=== PATIENT | female | born 1960 | race Caucasian/White ===

== ENCOUNTER 2016-11-01 19:45 | Inpatient (IN) | payer MEDICAID ==
[2016-11-01 19:46] VITALS: BMI 28.6
--- NOTE | 2016-11-01 20:51 | C.PDOC ---
History Of Present Illness 56 y/o female pmhx diabetes, ESRD, presents to the ED with complains of right facial pain x1 week. Pt also reports development of decreased vision in right eye 3 days ago which has been constant. Pt is scheduled to start dialysis in a couple months. Does not normally wear visual correction. Pt denies weakness, numbness, slurred speech, vomiting, chest pain or any other complaints. Time Seen by Provider: 11/01/16 20:28 Chief Complaint (Nursing): Eye Problem History Per: Patient History/Exam Limitations: no limitations Onset/Duration Of Symptoms: Days, Persistent Current Symptoms Are (Timing): Still Present Injury To Eye?: No Severity: Moderate Wears Contact Lens?: No Associated Symptoms: Decreased Vision Recent travel outside of the [place]: No Past Medical History Reviewed: Historical Data, Nursing Documentation, Vital Signs Vital Signs: Last Vital Signs Temp 97.5 F L 11/01/16 19:59 Pulse 69 11/02/16 00:06 Resp 20 11/02/16 00:06 BP 132/69 11/02/16 00:06 Pulse Ox 99 11/02/16 00:06 - Medical History PMH: Anemia, HTN, Hypercholesterolemia, Kidney Stones (NO SURGERY), Chronic Kidney Disease (NO DIALYSIS YET) Family History: States: Unknown Family Hx - Social History Hx Alcohol Use: No Hx Substance Use: No - Immunization History Hx Tetanus Toxoid Vaccination: No Hx Influenza Vaccination: No Hx Pneumococcal Vaccination: No Review Of Systems Except As Marked, All Systems Reviewed And Found Negative. Constitutional: Negative for: Fever Eyes: Positive for: Vision Change (decreased vision right eye) Cardiovascular: Negative for: Chest Pain Musculoskeletal: Positive for: Other (right facial pain) Neurological: Negative for: Weakness, Numbness, Change in Speech Physical Exam - Physical Exam Appears: Non-toxic, No Acute Distress Skin: Warm, Dry, No Rash Head: No Atraumatic, No Normacephalic Eye(s): bilateral: PERRL, EOMI, right: Other (central, medial visual field deficit right eye, peripheral vision intact. fund appears abnormal on the right ? ret detach) Nose: Normal Neck: Normal ROM, Supple Chest: Symmetrical Cardiovascular: Rhythm Regular, No Murmur Respiratory: Normal Breath Sounds, No Rales, No Rhonchi, No Wheezing Gastrointestinal/Abdominal: Soft Extremity: Normal ROM, No Pedal Edema Extremity: Bilateral: Atraumatic Neurological/Psych: Oriented x3, Normal Speech, Normal Cognition, Normal Cranial Nerves, Cerebellar Signs, Normal Motor, Normal Sensation ED Course And Treatment - Laboratory Results Result Diagrams: 11/01/16 21:41 11/01/16 21:41 ECG: Interpreted By Me, Viewed By Me ECG Rhythm: Sinus Rhythm Interpretation Of ECG: Normal axis, normal intervals, no ischemia Rate From EC (BPM) O2 Sat by Pulse Oximetry: 100 (on room air) Pulse Ox Interpretation: Normal Medical Decision Making Medical Decision Making: retinal detach vs ophth tract lesion vs other 1230am disc w dr swain who will admit 0100am awaiting call back from oph at conclusion of my shift CT Head w/o contrast: Name: SHELIA SWAIN Age: 56Years F Date: 11/01/2016 SSN: [id number] : 1960 Study: CT HEAD WO Requesting Physician: Francisco Rowland Images: 142 Addl Studies: Provided Clinical History: visual disturbance EXAM: CT Head Without Intravenous Contrast. CLINICAL HISTORY: 56 years old, female; Signs and symptoms; Visual disturbance TECHNIQUE: Axial computed tomography images of the head/brain without intravenous contrast. This CT exam was performed using one or more of the following dose reduction techniques: automated exposure control, adjustment of the mA and/or kV according to patient size, and/or use of iterative reconstruction technique. EXAM DATE/TIME: 11/01/2016 8:52 PM COMPARISON: There are no prior studies for comparison. FINDINGS: Brain: There is prominence of sulci gyri and ventricles. There is no midline shift. There is patchy decreased attenuation in periventricular white matter. There are no focal masses. There are no focal hemorrhages. Vicente-white differentiation is visualized. Ventricles: See above. Bones: Cranial vault is intact. Soft tissues: unremarkable Sinuses: There is no acute sinusitis. Ears and mastoids: Middle ears and mastoid IMPRESSION: No acute intracranial abnormality Disposition - Disposition Disposition Time: 00:30 Condition: STABLE - Clinical Impression Clinical Impression: Visual field defect - Scribe Statement The provider has reviewed the documentation as recorded by the Adam George Provider Attestation: All medical record entries made by the Scribe were at my direction and personally dictated by me. I have reviewed the chart and agree that the record accurately reflects my personal performance of the history, physical exam, medical decision making, and the department course for this patient. I have also personally directed, reviewed, and agree with the discharge instructions and disposition.
[2016-11-01] MEDS ORDERED: Cyclopentolate 1% Opth (2 ml) OD STA (21:08)
[2016-11-01 21:49] LABS: BASO # 0.1 K/uL (0.0-0.2); BASO % 0.7 % (0.0-2.0); EOS # 0.2 K/uL (0.0-0.7); EOS % 2.3 % (0.0-4.0); HEMATOCRIT 27.1 % (34.0-47.0); LYMPH # 1.8 K/uL (1.0-4.3); LYMPH % 21.2 % (20.0-40.0); MEAN CORPUSCULAR HGB CONC 32.9 g/dL (33.0-37.0); MEAN PLATELET VOLUME 8.3 fL (7.2-11.7); MONO # 0.7 K/uL (0.0-0.8); MONO % 8.2 % (0.0-10.0); RED CELL DISTRIBUTION WIDTH 14.2 % (11.5-14.5); WHITE BLOOD COUNT 8.4 K/uL (4.8-10.8)
[2016-11-01 21:54] LABS: POTASSIUM 5.2 mmol/L (3.6-5.2)
[2016-11-01 21:56] LABS: BILIRUBIN,TOTAL 0.4 mg/dL (0.2-1.3); TOTAL PROTEIN 7.7 g/dL (6.3-8.3)
--- NOTE | 2016-11-01 22:36 | CT ---
EXAM: CT Head Without Intravenous Contrast. CLINICAL HISTORY: 56 years old, female; Signs and symptoms; Visual disturbance TECHNIQUE: Axial computed tomography images of the head/brain without intravenous contrast. This CT exam was performed using one or more of the following dose reduction techniques: automated exposure control, adjustment of the mA and/or kV according to patient size, and/or use of iterative reconstruction technique. EXAM DATE/TIME: 11/01/2016 8:52 PM COMPARISON: There are no prior studies for comparison. FINDINGS: Brain: There is prominence of sulci gyri and ventricles. There is no midline shift. There is patchy decreased attenuation in periventricular white matter. There are no focal masses. There are no focal hemorrhages. Vicente-white differentiation is visualized. Ventricles: See above. Bones: Cranial vault is intact. Soft tissues: unremarkable Sinuses: There is no acute sinusitis. Ears and mastoids: Middle ears and mastoids are unremarkable. Orbits: Orbital contents are unremarkable. IMPRESSION: No acute intracranial abnormality
[2016-11-02] MEDS ORDERED: Sod Polystyrene Sulf 15 gm/60 ml Oral Susp PO SCH ×2 (09:00→10:00)
[2016-11-02] MEDS ORDERED: FERROUS SULFATE PO SCH (10:00)
[2016-11-02] MEDS ORDERED: [UNRECOGNIZED DRUG - REMARK] PO SCH (10:00)
[2016-11-02] MEDS: Multivitamin Vitamin B Complex (Nephro-Vite) Tab PO SCH (10:42)
[2016-11-02] MEDS: (Lantus) Insulin Glargine, Recombinant SC SCH ×2 (10:49→22:23)
--- NOTE | 2016-11-02 12:10 | CARD ---
APPROVED REPORT EKG Measurement Heart [id number] MD [id number] <Conclusion> Normal sinus rhythm Normal ECG
[2016-11-02] MEDS: (Novolog) Insulin Aspart, Recombinant 100 u/ml 10 ml vial SC SCH ×3 (12:59→22:32)
--- NOTE | 2016-11-02 18:06 | CP.PCM.PN ---
Subjective - Date & Time of Evaluation Date of Evaluation: 11/02/16 Time of Evaluation: 11:40 - Subjective Subjective: clinically same Objective - Vital Signs/Intake and Output Vital Signs (last 24 hours): Temp Pulse Resp BP Pulse Ox 98.9 F 68 20 113/62 96 11/02/16 15:36 11/02/16 15:36 11/02/16 15:36 11/02/16 15:36 11/02/16 15:36 - Medications Medications: Current Medications Amlodipine Besylate (Norvasc) 10 mg PO DAILY [facility] Last Admin: 11/02/16 10:42 Dose: Not Given Aspirin (Ecotrin) 81 mg PO DAILY [facility] Last Admin: 11/02/16 10:41 Dose: Not Given Calcitriol (Rocaltrol) 0.25 mcg PO DAILY [facility] Last Admin: 11/02/16 10:42 Dose: Not Given Calcium Acetate (Phoslo) 1,334 mg PO TIDCC [facility] Last Admin: 11/02/16 17:45 Dose: 1,334 mg Carvedilol (Coreg) 25 mg PO Q12 [facility] Last Admin: 11/02/16 10:41 Dose: Not Given Docusate Sodium (Colace) 100 mg PO TID [facility] Last Admin: 11/02/16 17:45 Dose: 100 mg Ferrous Sulfate (Feosol) 325 mg PO TID [facility] Last Admin: 11/02/16 17:45 Dose: 325 mg Furosemide (Lasix) 40 mg PO DAILY [facility] Last Admin: 11/02/16 10:42 Dose: Not Given Hydralazine HCl (Apresoline) 10 mg PO BID [facility] Last Admin: 11/02/16 17:45 Dose: 10 mg Insulin Aspart (Novolog) 0 unit SC ACHS [facility] PRN Reason: Protocol Last Admin: 11/02/16 17:46 Dose: 3 unit Insulin Glargine (Lantus) 25 unit SC Q12 [facility] Last Admin: 11/02/16 10:49 Dose: 25 units Isosorbide Mononitrate (Imdur) 60 mg PO DAILY [facility] Last Admin: 11/02/16 10:42 Dose: Not Given Rosuvastatin Calcium (Crestor) 10 mg PO [facility] Sodium Bicarbonate (Sodium Bicarbonate Tab) 650 mg PO TID [facility] Last Admin: 11/02/16 17:45 Dose: 650 mg Sodium Polystyrene Sulfonate (Kayexalate Oral Susp) 15 gm PO [facility] [place] B Complex/Vit C/Folic Acid (Nephro-Mary) 1 tab PO DAILY [facility] Last Admin: 11/02/16 10:42 Dose: Not Given - Constitutional Appears: Well - Head Exam Head Exam: ATRAUMATIC, NORMAL INSPECTION, NORMOCEPHALIC - Eye Exam Eye Exam: EOMI, Normal appearance, PERRL Pupil Exam: NORMAL ACCOMODATION, PERRL - ENT Exam ENT Exam: Mucous Membranes Moist, Normal Exam - Neck Exam Neck Exam: Full ROM, Normal Inspection. absent: Lymphadenopathy - Respiratory Exam Respiratory Exam: Decreased Breath Sounds - Cardiovascular Exam Cardiovascular Exam: REGULAR RHYTHM, +S1, +S2 - GI/Abdominal Exam GI & Abdominal Exam: Soft, Diminished Bowel Sounds - Rectal Exam Rectal Exam: Deferred
--- NOTE | 2016-11-02 18:08 | CP.PCM.CON ---
Past Patient History - Past Medical History & Family History Past Medical History?: Yes - Past Social History Smoking Status: Never Smoked - CARDIAC Hx Hypercholesterolemia: Yes Hx Hypertension: Yes - PULMONARY Hx Respiratory Disorders: No - HEENT Hx HEENT Problems: Yes (DIABETIC RETINOPATHY) - RENAL Hx Chronic Kidney Disease: Yes (NO DIALYSIS YET) Hx Kidney Stones: Yes (NO SURGERY) - ENDOCRINE/METABOLIC Hx Endocrine Disorders: Yes Hx Diabetes Mellitus Type 1: Yes - HEMATOLOGICAL/ONCOLOGICAL Hx Anemia: Yes - MUSCULOSKELETAL/RHEUMATOLOGICAL Hx Back Pain: Yes (CERVICAL/LUMBAR) Hx Falls: No - GASTROINTESTINAL Hx Gastrointestinal Disorders: No - GENITOURINARY/GYNECOLOGICAL Hx Genitourinary Disorders: Yes (RENAL FAILURE) - PSYCHIATRIC Hx Substance Use: No - SURGICAL HISTORY Hx Surgeries: Yes (left arm fistula) Hx Tubal Ligation: Yes - ANESTHESIA Hx Anesthesia: Yes Hx Anesthesia Reactions: Yes (WOKE UP DURING PROCEDURE) Hx Malignant Hyperthermia: No Meds Allergies/Adverse Reactions: Allergies Allergy/AdvReac Type Severity Reaction Status Date / Time No Known Allergies Allergy Verified 11/01/16 19:59 - Medications Medications: Current Medications Amlodipine Besylate (Norvasc) 10 mg PO DAILY [facility] Last Admin: 11/02/16 10:42 Dose: Not Given Aspirin (Ecotrin) 81 mg PO DAILY [facility] Last Admin: 11/02/16 10:41 Dose: Not Given Calcitriol (Rocaltrol) 0.25 mcg PO DAILY [facility] Last Admin: 11/02/16 10:42 Dose: Not Given Calcium Acetate (Phoslo) 1,334 mg PO TIDCC [facility] Last Admin: 11/02/16 17:45 Dose: 1,334 mg Carvedilol (Coreg) 25 mg PO Q12 [facility] Last Admin: 11/02/16 10:41 Dose: Not Given Docusate Sodium (Colace) 100 mg PO TID [facility] Last Admin: 11/02/16 17:45 Dose: 100 mg Ferrous Sulfate (Feosol) 325 mg PO TID [facility] Last Admin: 11/02/16 17:45 Dose: 325 mg Furosemide (Lasix) 40 mg PO DAILY [facility] Last Admin: 11/02/16 10:42 Dose: Not Given Hydralazine HCl (Apresoline) 10 mg PO BID [facility] Last Admin: 11/02/16 17:45 Dose: 10 mg Insulin Aspart (Novolog) 0 unit SC [facility] PRN Reason: Protocol Last Admin: 11/02/16 17:46 Dose: 3 unit Insulin Glargine (Lantus) 25 unit SC Q12 [facility] Last Admin: 11/02/16 10:49 Dose: 25 units Isosorbide Mononitrate (Imdur) 60 mg PO DAILY [facility] Last Admin: 11/02/16 10:42 Dose: Not Given Rosuvastatin Calcium (Crestor) 10 mg PO [facility] Sodium Bicarbonate (Sodium Bicarbonate Tab) 650 mg PO TID [facility] Last Admin: 11/02/16 17:45 Dose: 650 mg Sodium Polystyrene Sulfonate (Kayexalate Oral Susp) 15 gm PO [facility] [place] Vitamin B Complex/Vit C/Folic Acid (Nephro-Mary) 1 tab PO DAILY [facility] Last Admin: 11/02/16 10:42 Dose: Not Given Physical Exam - Constitutional Appears: Well - Head Exam Head Exam: ATRAUMATIC, NORMAL INSPECTION, NORMOCEPHALIC - Eye Exam Eye Exam: EOMI, Normal appearance, PERRL Pupil Exam: NORMAL ACCOMODATION, PERRL - ENT Exam ENT Exam: Mucous Membranes Moist, Normal Exam - Neck Exam Neck exam: Positive for: Normal Inspection - Respiratory Exam Respiratory Exam: Decreased Breath Sounds - Cardiovascular Exam Cardiovascular Exam: REGULAR RHYTHM, +S1, +S2 - GI/Abdominal Exam GI & Abdominal Exam: Diminished Bowel Sounds, Soft - Rectal Exam Rectal Exam: Deferred Results - Vital Signs Recent Vital Signs: Last Vital Signs Temp 98.9 F 11/02/16 15:36 Pulse 68 11/02/16 15:36 Resp 20 11/02/16 15:36 BP 113/62 11/02/16 15:36 Pulse Ox 96 11/02/16 15:36 - Labs Result Diagrams: 11/01/16 21:41 11/01/16 21:41 Labs: Laboratory Results - last 24 hr 11/02/16 11/02/16 11:43 16:41 POC Glucose (mg/dL) 293 H 254 H
--- NOTE | 2016-11-02 21:27 | CP.PCM.HP ---
Past Patient History - Past Medical History & Family History Past Medical History?: Yes - Past Social History Smoking Status: Never Smoked - CARDIAC Hx Hypercholesterolemia: Yes Hx Hypertension: Yes - PULMONARY Hx Respiratory Disorders: No - HEENT Hx HEENT Problems: Yes (DIABETIC RETINOPATHY) - RENAL Hx Chronic Kidney Disease: Yes (NO DIALYSIS YET) Hx Kidney Stones: Yes (NO SURGERY) - ENDOCRINE/METABOLIC Hx Endocrine Disorders: Yes Hx Diabetes Mellitus Type 1: Yes - HEMATOLOGICAL/ONCOLOGICAL Hx Anemia: Yes - MUSCULOSKELETAL/RHEUMATOLOGICAL Hx Back Pain: Yes (CERVICAL/LUMBAR) Hx Falls: No - GASTROINTESTINAL Hx Gastrointestinal Disorders: No - GENITOURINARY/GYNECOLOGICAL Hx Genitourinary Disorders: Yes (RENAL FAILURE) - PSYCHIATRIC Hx Substance Use: No - SURGICAL HISTORY Hx Surgeries: Yes (left arm fistula) Hx Tubal Ligation: Yes - ANESTHESIA Hx Anesthesia: Yes Hx Anesthesia Reactions: Yes (WOKE UP DURING PROCEDURE) Hx Malignant Hyperthermia: No Meds Allergies/Adverse Reactions: Allergies Allergy/AdvReac Type Severity Reaction Status Date / Time No Known Allergies Allergy Verified 11/01/16 19:59 Results - Vital Signs Recent Vital Signs: Last Vital Signs Temp 98.9 F 11/02/16 15:36 Pulse 68 11/02/16 16:00 Resp 20 11/02/16 15:36 BP 113/62 11/02/16 15:36 Pulse Ox 96 11/02/16 15:36 - Labs Result Diagrams: 11/01/16 21:41 11/01/16 21:41 Labs: Laboratory Results - last 24 hr 11/02/16 11/02/16 11/02/16 11:43 16:41 21:05 POC Glucose (mg/dL) 293 H 254 H 219 H
[2016-11-02] MEDS ORDERED: Home Med 1 UNIT (Atorvastatin [Lipitor] 1 TAB) PO SCH (22:00)
[2016-11-02] MEDS: Tramadol 25 mg PO PRN (22:24)
[2016-11-03] MEDS: (Novolog) Insulin Aspart, Recombinant 100 u/ml 10 ml vial SC SCH ×4 (07:33→21:53)
[2016-11-03 08:10] LABS: BASO # 0.1 K/uL (0.0-0.2); BASO % 0.7 % (0.0-2.0); EOS # 0.2 K/uL (0.0-0.7); EOS % 2.6 % (0.0-4.0); HEMATOCRIT 25.1 % (34.0-47.0); LYMPH # 1.8 K/uL (1.0-4.3); LYMPH % 24.4 % (20.0-40.0); MEAN CELL VOLUME 91.9 fL (81.0-99.0); MEAN CORPUSCULAR HEMOGLOBIN 30.5 pg (27.0-31.0); MEAN CORPUSCULAR HGB CONC 33.2 g/dL (33.0-37.0); MEAN PLATELET VOLUME 8.5 fL (7.2-11.7); MONO # 0.7 K/uL (0.0-0.8); MONO % 9.8 % (0.0-10.0); RED CELL DISTRIBUTION WIDTH 14.2 % (11.5-14.5); WHITE BLOOD COUNT 7.4 K/uL (4.8-10.8)
[2016-11-03 08:11] LABS: POTASSIUM 4.5 mmol/L (3.6-5.2)
[2016-11-03] MEDS: (Lantus) Insulin Glargine, Recombinant SC SCH ×2 (09:09→21:47)
[2016-11-03] MEDS: Multivitamin Vitamin B Complex (Nephro-Vite) Tab PO SCH (09:16)
--- NOTE | 2016-11-03 10:13 | CP.PCM.CON ---
History of Present Illness - History of Present Illness History of Present Illness: pt seen and examined, full consult is di ctated #[id number] Past Patient History - Past Medical History & Family History Past Medical History?: Yes - Past Social History Smoking Status: Never Smoked - CARDIAC Hx Hypercholesterolemia: Yes Hx Hypertension: Yes - PULMONARY Hx Respiratory Disorders: No - HEENT Hx HEENT Problems: Yes (DIABETIC RETINOPATHY) - RENAL Hx Chronic Kidney Disease: Yes (NO DIALYSIS YET) Hx Kidney Stones: Yes (NO SURGERY) - ENDOCRINE/METABOLIC Hx Endocrine Disorders: Yes Hx Diabetes Mellitus Type 1: Yes - HEMATOLOGICAL/ONCOLOGICAL Hx Anemia: Yes - MUSCULOSKELETAL/RHEUMATOLOGICAL Hx Back Pain: Yes (CERVICAL/LUMBAR) Hx Falls: No - GASTROINTESTINAL Hx Gastrointestinal Disorders: No - GENITOURINARY/GYNECOLOGICAL Hx Genitourinary Disorders: Yes (RENAL FAILURE) - PSYCHIATRIC Hx Substance Use: No - SURGICAL HISTORY Hx Surgeries: Yes (left arm fistula) Hx Tubal Ligation: Yes - ANESTHESIA Hx Anesthesia: Yes Hx Anesthesia Reactions: Yes (WOKE UP DURING PROCEDURE) Hx Malignant Hyperthermia: No Meds Allergies/Adverse Reactions: Allergies Allergy/AdvReac Type Severity Reaction Status Date / Time No Known Allergies Allergy Verified 11/01/16 19:59 - Medications Medications: Current Medications Amlodipine Besylate (Norvasc) 10 mg PO DAILY [facility] Last Admin: 11/03/16 09:08 Dose: 10 mg Aspirin (Ecotrin) 81 mg PO DAILY [facility] Last Admin: 11/03/16 09:08 Dose: 81 mg Calcitriol (Rocaltrol) 0.25 mcg PO DAILY [facility] Last Admin: 11/03/16 09:09 Dose: 0.25 mcg Calcium Acetate (Phoslo) 1,334 mg PO TIDCC [facility] Last Admin: 11/03/16 08:05 Dose: 1,334 mg Carvedilol (Coreg) 25 mg PO Q12 [facility] Last Admin: 11/03/16 09:10 Dose: 25 mg Docusate Sodium (Colace) 100 mg PO TID [facility] Last Admin: 11/03/16 09:10 Dose: 100 mg Ferrous Sulfate (Feosol) 325 mg PO TID [facility] Last Admin: 11/03/16 09:09 Dose: 325 mg Furosemide (Lasix) 40 mg PO DAILY [facility] Last Admin: 11/02/16 10:42 Dose: Not Given Hydralazine HCl (Apresoline) 10 mg PO BID [facility] Last Admin: 11/03/16 09:09 Dose: 10 mg Insulin Aspart (Novolog) 0 unit SC ACHS [facility] PRN Reason: Protocol Last Admin: 11/03/16 07:33 Dose: Not Given Insulin Glargine (Lantus) 25 unit SC Q12 [facility] Last Admin: 11/03/16 09:09 Dose: 25 units Isosorbide Mononitrate (Imdur) 60 mg PO DAILY [facility] Last Admin: 11/03/16 09:16 Dose: 60 mg Rosuvastatin Calcium (Crestor) 10 mg PO HS [facility] Last Admin: 11/02/16 22:24 Dose: 10 mg Sodium Bicarbonate (Sodium Bicarbonate Tab) 650 mg PO TID [facility] Last Admin: 11/03/16 09:08 Dose: 650 mg Sodium Polystyrene Sulfonate (Kayexalate Oral Susp) 15 gm PO MWF [facility] Tramadol HCl (Ultram) 25 mg PO Q8 PRN PRN Reason: Pain, moderate (4-7) Last Admin: 11/02/16 22:24 Dose: 25 mg Vitamin B Complex/Vit C/Folic Acid (Nephro-Mary) 1 tab PO DAILY [facility] Last Admin: 11/03/16 09:16 Dose: 1 tab Results - Vital Signs Recent Vital Signs: Last Vital Signs Temp 98.2 F 11/03/16 07:00 Pulse 61 11/03/16 07:00 Resp 20 11/03/16 07:00 BP 147/74 11/03/16 09:10 Pulse Ox 97 11/03/16 07:00 - Labs Result Diagrams: 11/03/16 07:57 11/03/16 07:57 Labs: Laboratory Results - last 24 hr 11/02/16 11/02/16 11/02/16 11:43 16:41 21:05 WBC RBC Hgb Hct MCV MCH MCHC RDW Plt Count MPV Neut % (Auto) Lymph % (Auto) [place] % (Auto) Eos % (Auto) Baso % (Auto) Neut # Lymph # [place] # Eos # Baso # Sodium Potassium Chloride Carbon Dioxide Anion Gap BUN Creatinine Est GFR ( Amer) Est GFR (Non-Af Amer) POC Glucose (mg/dL) 293 H 254 H 219 H Random Glucose Calcium 11/03/16 11/03/16 06:35 07:57 WBC 7.4 RBC 2.73 L Hgb 8.3 L Hct 25.1 L MCV 91.9 MCH 30.5 MCHC 33.2 RDW 14.2 Plt Count 218 MPV 8.5 Neut % (Auto) 62.5 Lymph % (Auto) 24.4 [place] % (Auto) 9.8 Eos % (Auto) 2.6 Baso % (Auto) 0.7 Neut # 4.6 Lymph # 1.8 Carroll # 0.7 Eos # 0.2 Baso # 0.1 Sodium 143 Potassium 4.5 Chloride 109 H Carbon Dioxide 20 L Anion Gap 19 BUN 55 H Creatinine 7.5 H* Est GFR ( Amer) 7 Est GFR (Non-Af Amer) 6 POC Glucose (mg/dL) 73 Random Glucose 118 H Calcium 9.0
--- NOTE | 2016-11-03 12:00 | CON ---
DATE: 11/03/2016 LOCATION: The patient is located in room 568, bed A. REQUESTING PHYSICIAN: Dr. Wiliam Wells. REASON FOR RENAL CONSULTATION: CKD 5 with visual field defect on the right eye for 2 days. HISTORY OF PRESENT ILLNESS: The patient is a 56-year-old middle-aged [place]er female with a past medical history significant for longstanding hypertension, diabetes, CHF, proteinuria, anemia, secondary hyperparathyroidism, hyperkalemia , CKD 5 with worsening renal function for the last 6 months, status post left upper extremity AV fistula placement about a month ago, who was admitted with a chief complaint of pain on the right side of the neck and also unable to see on the medial aspect of the right eye for the last 2 days. Denies any fever, cough. Denies any chest pain, palpitation. Denies any nausea, vomiting, diarrhea. No edema of the legs. No abdominal pain. PAST MEDICAL HISTORY: Significant for longstanding hypertension, diabetes, CHF , anemia, secondary hyperparathyroidism, metabolic acidosis, hyperkalemia, and anemia. PAST SURGICAL HISTORY: Status post left upper extremity AV fistula. ALLERGIES: No known drug allergies. SOCIAL HISTORY: No smoking. No alcohol. No drug abuse. FAMILY HISTORY: Not significant. She has a very supportive family. CURRENT MEDICATIONS: Include as follows: Hydralazine 100 mg p.o. b.i.d., Colace 100 mg b.i.d., Coreg 25 mg p.o. q. 12 hours, Crestor 10 mg at bedtime, aspirin 81 mg daily, Feosol 325 mg p.o. t.i.d., Imdur 60 mg daily, and Kayexalate 15 grams 3 times a week, Monday, Monday, Monday, and Lantus 25 units q. 12 hours, Lasix 40 mg p.o. daily, Nephro-Mary 1 tablet daily, amlodipine 10 mg daily, NovoLog for sliding scale, PhosLo 667 mg 2 tablets t.i.d., Rocaltrol 0.25 mcg 2 daily, sodium bicarbonate 650 t.i.d. and tramadol 25 mg p.o. q. 8 hours. REVIEW OF SYSTEMS: Significant for pain on the right side of the face and also unable to see on the medial aspect of the right eye. Good vision on the left eye, and able to see on the lateral aspect of the right eye. All other review of systems are reviewed and are negative. PHYSICAL EXAMINATION: VITAL SIGNS: Blood pressure 147/74, pulse 61, respiration 20, temperature 98.2 , saturation 97%, height 4 feet 11 inches and weight is 143 pounds. GENERAL: The patient is a 56-year-old female, well built, well nourished, not in acute distress. HEENT: Pupils normal reactive to light and accommodation. Conjunctivae pink. Sclerae anicteric. Tongue is moist. NECK: Trachea midline. EYES: The patient is not able to see on the medial aspect of the right eye. Left eye vision is nonsmall and lateral aspect of the eye able to see, but not able to see on the medial aspect of the right eye. LUNGS: Symmetric on both sides. Bilateral breath sounds present. Clear on auscultation. CARDIOVASCULAR: [place] at the 5 IC space of midclavicular line. S1 and S2 audible. No murmur or gallop. ABDOMEN: Normal in appearance, soft, NT, BS+. No guarding, no rigidity. No hepatosplenomegaly. NEUROLOGIC: The patient is alert, awake, oriented x 3, nonfocal on examination. Cranial nerves II-XII grossly intact except vision on the medial aspect of the right eye. EXTREMITIES: No cyanosis, no clubbing, no edema. LABORATORY DATA: Include as follows: As of 11/01/2016, WBC 8.4, hemoglobin 8.9 , hematocrit is 27.1, platelets 250, sodium 141, potassium 5.2, chloride 104, CO2 18, BUN 58, creatinine 7, glucose 185, calcium 9, total bilirubin 0.4, AST 16, ALT 20, alkaline phosphatase is 51. Total protein 7.7, albumin 3.9. As of 11/03/2016, WBC 7.4, hemoglobin 8.3, hematocrit is 25.1, platelets 218. Sodium 143, potassium 4.5, chloride 109, CO2 20, BUN 55, creatinine 7.5, glucose 118, calcium is 9. CT of the head as of 11/01/2016. Impression: No acute intracranial abnormality. Patient is scheduled for MRI of the brain and pending at this time. SUMMARY: In summary: The patient is a 56-year-old female with history of hypertension, diabetes, hyperlipidemia, congestive heart failure, chronic kidney disease stage V, anemia secondary hyperparathyroidism, status post left upper extremity AV fistula placement, hyperkalemia, was admitted with pain on the right side of the face and unable to see in the medial aspect of the right side for 2 days. ASSESSMENT AND PLAN: 1. Chronic kidney disease stage V, secondary to diabetic nephropathy. 2. Hypertension. 3. Anemia secondary to chronic kidney disease, stage V. 4. Unable to the on the right side of the right eye. Rule out diabetic retinopathy, rule out retinal bleed, and also rule out transient ischemic attack , rule out cerebellar infarct. Consider ophthalmology evaluation and followup MRI of the brain. No need for emergent hemodialysis at this time. PLAN: Continue all her current medications. We will add Epogen 10,000 units 3 times a week. Thank you for allowing me to participate in your patient's care. Consider ophthalmology evaluation as an inpatient. Chrissie Moore MD cc: [id number] TT: 11/03/2016 11:59:21 Confirmation # [id number] Dictation # [id number] [id number]
--- NOTE | 2016-11-03 12:49 | CP.PCM.PN ---
Subjective - Date & Time of Evaluation Date of Evaluation: 11/03/16 Time of Evaluation: 11:40 - Subjective Subjective: clinically same Objective - Vital Signs/Intake and Output Vital Signs (last 24 hours): Temp Pulse Resp BP Pulse Ox 98.2 F 61 20 145/77 97 11/03/16 07:00 11/03/16 10:34 11/03/16 07:00 11/03/16 11:59 11/03/16 07:00 - Medications Medications: Current Medications Amlodipine Besylate (Norvasc) 10 mg PO DAILY [facility] Last Admin: 11/03/16 09:08 Dose: 10 mg Aspirin (Ecotrin) 81 mg PO DAILY [facility] Last Admin: 11/03/16 09:08 Dose: 81 mg Calcitriol (Rocaltrol) 0.25 mcg PO DAILY [facility] Last Admin: 11/03/16 09:09 Dose: 0.25 mcg Calcium Acetate (Phoslo) 1,334 mg PO TIDCC [facility] Last Admin: 11/03/16 11:17 Dose: 1,334 mg Carvedilol (Coreg) 25 mg PO Q12 [facility] Last Admin: 11/03/16 09:10 Dose: 25 mg Docusate Sodium (Colace) 100 mg PO TID [facility] Last Admin: 11/03/16 09:10 Dose: 100 mg Ferrous Sulfate (Feosol) 325 mg PO TID [facility] Last Admin: 11/03/16 09:09 Dose: 325 mg Furosemide (Lasix) 40 mg PO DAILY [facility] Last Admin: 11/03/16 11:59 Dose: 40 mg Hydralazine HCl (Apresoline) 10 mg PO BID [facility] Last Admin: 11/03/16 09:09 Dose: 10 mg Insulin Aspart (Novolog) 0 unit SC ACHS [facility] PRN Reason: Protocol Last Admin: 11/03/16 11:59 Dose: 3 unit Insulin Glargine (Lantus) 25 unit SC Q12 [facility] Last Admin: 11/03/16 09:09 Dose: 25 units Isosorbide Mononitrate (Imdur) 60 mg PO DAILY [facility] Last Admin: 11/03/16 09:16 Dose: 60 mg Rosuvastatin Calcium (Crestor) 10 mg PO HS [facility] Last Admin: 11/02/16 22:24 Dose: 10 mg Sodium Bicarbonate (Sodium Bicarbonate Tab) 650 mg PO TID [facility] Last Admin: 11/03/16 09:08 Dose: 650 mg Sodium Polystyrene Sulfonate (Kayexalate Oral Susp) 15 gm PO MWF [facility] Tramadol HCl (Ultram) 25 mg PO Q8 PRN PRN Reason: Pain, moderate (4-7) Last Admin: 11/02/16 22:24 Dose: 25 mg Vitamin B Complex/Vit C/Folic Acid (Nephro-Mary) 1 tab PO DAILY [facility] Last Admin: 11/03/16 09:16 Dose: 1 tab - Constitutional Appears: Well - Head Exam Head Exam: ATRAUMATIC, NORMAL INSPECTION, NORMOCEPHALIC - Eye Exam Eye Exam: EOMI, Normal appearance, PERRL Pupil Exam: NORMAL ACCOMODATION, PERRL - ENT Exam ENT Exam: Mucous Membranes Moist, Normal Exam - Neck Exam Neck Exam: Full ROM, Normal Inspection. absent: Lymphadenopathy - Respiratory Exam Respiratory Exam: Decreased Breath Sounds - Cardiovascular Exam Cardiovascular Exam: REGULAR RHYTHM, +S1, +S2 - GI/Abdominal Exam GI & Abdominal Exam: Soft, Diminished Bowel Sounds - Rectal Exam Rectal Exam: Deferred Assessment and Plan (1) Visual field defect Status: Acute (2) HTN (hypertension) Status: Acute (3) Chronic renal disease Status: Acute (4) Facial pain Status: Acute
--- NOTE | 2016-11-03 14:42 | MRI ---
PROCEDURE: MRI BRAIN WITHOUT CONTRAST HISTORY: visual disturbance COMPARISON: Comparison made with CT scan brain 11/01/2016. TECHNIQUE: Multiplanar, multisequence MR images of the brain were obtained without intravenous contrast enhancement. FINDINGS: HEMORRHAGE: No acute parenchymal, subarachnoid nor extra-axial hemorrhage. No evidence of hemosiderin deposition identified on gradient echo weighted sequence. DWI: No evidence of an acute or early subacute infarction. BRAIN PARENCHYMA: There are a few tiny non nonspecific focal areas of increased T2 signal seen scattered about the subcortical white matter both frontal lobes nonspecific. Findings could represent sequela of small vessel disease however differential diagnosis would include migraine headaches, sequela of old trauma, or post infectious/ inflammatory changes. Atypical presentation of a demyelinating disease process would be less likely in the absence of a pertinent clinical history however not completely excluded. Additionally, there also appears to be some very minimal increased T2 signal changes in the perifrontal horn white matter bilaterally which may also represent sequela of small vessel disease. VENTRICLES: Mild generalized volume loss. CRANIUM: No calvarial abnormality seen. . ORBITS: Orbits and contents grossly unremarkable. PARANASAL SINUSES/MASTOIDS: Clear VASCULAR SYSTEM: Visualized major vascular flow voids at skull base are patent. OTHER FINDINGS: None. IMPRESSION: No acute intracranial hemorrhage or infarct. There are a few tiny focal areas of increased T2 signal scattered about the subcortical white matter with minimal increased T2 signal changes in theperifrontal horn white matter bilaterally which may also represent sequela of small vessel disease. Mild generalized volume loss.
[2016-11-04] MEDS: (Novolog) Insulin Aspart, Recombinant 100 u/ml 10 ml vial SC SCH ×4 (07:32→21:30)
--- NOTE | 2016-11-04 09:28 | CP.PCM.PN ---
Subjective - Date & Time of Evaluation Date of Evaluation: 11/04/16 Time of Evaluation: 10:00 - Subjective Subjective: clinically same Objective - Vital Signs/Intake and Output Vital Signs (last 24 hours): Temp Pulse Resp BP Pulse Ox 98.2 F 69 20 149/68 96 11/04/16 00:35 11/04/16 00:35 11/04/16 00:35 11/04/16 00:35 11/04/16 00:35 - Medications Medications: Current Medications Amlodipine Besylate (Norvasc) 10 mg PO DAILY [facility] Last Admin: 11/03/16 09:08 Dose: 10 mg Aspirin (Ecotrin) 81 mg PO DAILY [facility] Last Admin: 11/03/16 09:08 Dose: 81 mg Calcitriol (Rocaltrol) 0.25 mcg PO DAILY [facility] Last Admin: 11/03/16 09:09 Dose: 0.25 mcg Calcium Acetate (Phoslo) 1,334 mg PO TIDCC [facility] Last Admin: 11/04/16 07:44 Dose: 1,334 mg Carvedilol (Coreg) 25 mg PO Q12 [facility] Last Admin: 11/03/16 21:53 Dose: Not Given Docusate Sodium (Colace) 100 mg PO TID [facility] Last Admin: 11/03/16 17:40 Dose: 100 mg Ferrous Sulfate (Feosol) 325 mg PO TID [facility] Last Admin: 11/03/16 17:39 Dose: 325 mg Furosemide (Lasix) 40 mg PO DAILY [facility] Last Admin: 11/03/16 11:59 Dose: 40 mg Hydralazine HCl (Apresoline) 10 mg PO BID [facility] Last Admin: 11/03/16 17:42 Dose: 10 mg Insulin Aspart (Novolog) 0 unit SC ACHS [facility] PRN Reason: Protocol Last Admin: 11/04/16 07:32 Dose: Not Given Insulin Glargine (Lantus) 25 unit SC Q12 [facility] Last Admin: 11/03/16 21:47 Dose: 25 units Isosorbide Mononitrate (Imdur) 60 mg PO DAILY [facility] Last Admin: 11/03/16 09:16 Dose: 60 mg Rosuvastatin Calcium (Crestor) 10 mg PO HS [facility] Last Admin: 11/03/16 21:47 Dose: 10 mg Sodium Bicarbonate (Sodium Bicarbonate Tab) 650 mg PO TID [facility] Last Admin: 11/03/16 17:40 Dose: 650 mg Sodium Polystyrene Sulfonate (Kayexalate Oral Susp) 15 gm PO MWF [facility] Tramadol HCl (Ultram) 25 mg PO Q8 PRN PRN Reason: Pain, moderate (4-7) Last Admin: 11/02/16 22:24 Dose: 25 mg Vitamin B Complex/Vit C/Folic Acid (Nephro-Mary) 1 tab PO DAILY [facility] Last Admin: 11/03/16 09:16 Dose: 1 tab - Constitutional Appears: Well - Head Exam Head Exam: ATRAUMATIC, NORMAL INSPECTION, NORMOCEPHALIC - Eye Exam Eye Exam: EOMI, Normal appearance, PERRL Pupil Exam: NORMAL ACCOMODATION, PERRL - ENT Exam ENT Exam: Mucous Membranes Moist, Normal Exam - Neck Exam Neck Exam: Full ROM, Normal Inspection. absent: Lymphadenopathy - Respiratory Exam Respiratory Exam: Decreased Breath Sounds - Cardiovascular Exam Cardiovascular Exam: REGULAR RHYTHM, +S1, +S2 - GI/Abdominal Exam GI & Abdominal Exam: Soft, Diminished Bowel Sounds - Rectal Exam Rectal Exam: Deferred Assessment and Plan (1) Visual field defect Status: Acute (2) HTN (hypertension) Status: Acute (3) Chronic renal disease Status: Acute (4) Facial pain Status: Acute - Assessment and Plan (Free Text) Plan: neuro ent oph coti same mri head is negative renal follow up no need or hd yet now
[2016-11-04] MEDS ORDERED: Sod Polystyrene Sulf 15 gm/60 ml Oral Susp PO SCH (10:00)
[2016-11-04] MEDS: Multivitamin Vitamin B Complex (Nephro-Vite) Tab PO SCH (10:14)
[2016-11-04] MEDS: (Lantus) Insulin Glargine, Recombinant SC SCH ×2 (10:14→21:37)
--- NOTE | 2016-11-04 10:15 | CP.PCM.PN ---
Subjective - Date & Time of Evaluation Date of Evaluation: 11/04/16 Time of Evaluation: 10:14 - Subjective Subjective: pt seen and examined, follow up consult is dictated #[id number] Objective - Vital Signs/Intake and Output Vital Signs (last 24 hours): Temp Pulse Resp BP Pulse Ox 98.2 F 69 20 149/68 96 11/04/16 00:35 11/04/16 00:35 11/04/16 00:35 11/04/16 00:35 11/04/16 00:35 - Medications Medications: Current Medications Amlodipine Besylate (Norvasc) 10 mg PO DAILY [facility] Last Admin: 11/03/16 09:08 Dose: 10 mg Aspirin (Ecotrin) 81 mg PO DAILY [facility] Last Admin: 11/03/16 09:08 Dose: 81 mg Calcitriol (Rocaltrol) 0.25 mcg PO DAILY [facility] Last Admin: 11/03/16 09:09 Dose: 0.25 mcg Calcium Acetate (Phoslo) 1,334 mg PO TIDCC [facility] Last Admin: 11/04/16 07:44 Dose: 1,334 mg Carvedilol (Coreg) 25 mg PO Q12 [facility] Last Admin: 11/03/16 21:53 Dose: Not Given Docusate Sodium (Colace) 100 mg PO TID [facility] Last Admin: 11/03/16 17:40 Dose: 100 mg Ferrous Sulfate (Feosol) 325 mg PO TID [facility] Last Admin: 11/03/16 17:39 Dose: 325 mg Furosemide (Lasix) 40 mg PO DAILY [facility] Last Admin: 11/03/16 11:59 Dose: 40 mg Hydralazine HCl (Apresoline) 10 mg PO BID [facility] Last Admin: 11/03/16 17:42 Dose: 10 mg Insulin Aspart (Novolog) 0 unit SC ACHS [facility] PRN Reason: Protocol Last Admin: 11/04/16 07:32 Dose: Not Given Insulin Glargine (Lantus) 25 unit SC Q12 [facility] Last Admin: 11/03/16 21:47 Dose: 25 units Isosorbide Mononitrate (Imdur) 60 mg PO DAILY [facility] Last Admin: 11/03/16 09:16 Dose: 60 mg Rosuvastatin Calcium (Crestor) 10 mg PO HS [facility] Last Admin: 11/03/16 21:47 Dose: 10 mg Sodium Bicarbonate (Sodium Bicarbonate Tab) 650 mg PO TID [facility] Last Admin: 11/03/16 17:40 Dose: 650 mg Sodium Polystyrene Sulfonate (Kayexalate Oral Susp) 15 gm PO [facility] Tramadol HCl (Ultram) 25 mg PO Q8 PRN PRN Reason: Pain, moderate (4-7) Last Admin: 11/02/16 22:24 Dose: 25 mg Vitamin B Complex/Vit C/Folic Acid (Nephro-Mary) 1 tab PO DAILY [facility] Last Admin: 11/03/16 09:16 Dose: 1 tab
--- NOTE | 2016-11-04 11:05 | CP.PCM.PN ---
Objective - Vital Signs/Intake and Output Vital Signs (last 24 hours): Temp Pulse Resp BP Pulse Ox 98.2 F 69 20 170/75 H 96 11/04/16 00:35 11/04/16 00:35 11/04/16 00:35 11/04/16 10:14 11/04/16 00:35 - Medications Medications: Current Medications Amlodipine Besylate (Norvasc) 10 mg PO DAILY [facility] Last Admin: 11/04/16 10:14 Dose: 10 mg Aspirin (Ecotrin) 81 mg PO DAILY [facility] Last Admin: 11/04/16 10:13 Dose: 81 mg Calcitriol (Rocaltrol) 0.25 mcg PO DAILY [facility] Last Admin: 11/04/16 10:14 Dose: 0.25 mcg Calcium Acetate (Phoslo) 1,334 mg PO TIDCC [facility] Last Admin: 11/04/16 07:44 Dose: 1,334 mg Carvedilol (Coreg) 25 mg PO Q12 [facility] Last Admin: 11/04/16 10:12 Dose: 25 mg Docusate Sodium (Colace) 100 mg PO TID [facility] Last Admin: 11/04/16 10:12 Dose: 100 mg Epoetin Wild (Procrit) 10,000 unit [place] [facility] [place]ous Sulfate (Feosol) 325 mg PO TID [facility] Last Admin: 11/04/16 10:13 Dose: 325 mg Furosemide (Lasix) 40 mg PO DAILY [facility] Last Admin: 11/04/16 10:14 Dose: 40 mg Hydralazine HCl (Apresoline) 10 mg PO BID [facility] Last Admin: 11/04/16 10:12 Dose: 10 mg Insulin Aspart (Novolog) 0 unit SC [facility] PRN Reason: Protocol Last Admin: 11/04/16 07:32 Dose: Not Given Insulin Glargine (Lantus) 25 unit SC Q12 [facility] Last Admin: 11/04/16 10:14 Dose: 25 units Isosorbide Mononitrate (Imdur) 60 mg PO DAILY [facility] Last Admin: 11/04/16 10:13 Dose: 60 mg Rosuvastatin Calcium (Crestor) 10 mg PO HS [facility] Last Admin: 11/03/16 21:47 Dose: 10 mg Sodium Bicarbonate (Sodium Bicarbonate Tab) 650 mg PO TID [facility] Last Admin: 11/04/16 10:14 Dose: 650 mg Sodium Polystyrene Sulfonate (Kayexalate Oral Susp) 15 gm PO MWF [facility] Last Admin: 11/04/16 10:13 Dose: 15 gm Tramadol HCl (Ultram) 25 mg PO Q8 PRN PRN Reason: Pain, moderate (4-7) Last Admin: 11/02/16 22:24 Dose: 25 mg Vitamin B Complex/Vit C/Folic Acid (Nephro-Mayr) 1 tab PO DAILY [facility] Last Admin: 11/04/16 10:14 Dose: 1 tab
[2016-11-04 14:26] LABS: BASO # 0.1 K/uL (0.0-0.2); BASO % 0.6 % (0.0-2.0); EOS # 0.3 K/uL (0.0-0.7); EOS % 3.1 % (0.0-4.0); HEMATOCRIT 26.6 % (34.0-47.0); LYMPH # 1.8 K/uL (1.0-4.3); MEAN CORPUSCULAR HGB CONC 32.9 g/dL (33.0-37.0); MEAN PLATELET VOLUME 8.7 fL (7.2-11.7); MONO # 0.7 K/uL (0.0-0.8); MONO % 8.5 % (0.0-10.0); RED CELL DISTRIBUTION WIDTH 14.2 % (11.5-14.5); WHITE BLOOD COUNT 8.3 K/uL (4.8-10.8)
[2016-11-04 14:37] LABS: POTASSIUM 4.8 mmol/L (3.6-5.2)
[2016-11-04 14:40] LABS: ALB/GLOB RATIO 1.1 (1.0-2.1); BILIRUBIN,TOTAL 0.6 mg/dL (0.2-1.3); PHOSPHOROUS 4.8 mg/dL (2.5-4.5); TOTAL PROTEIN 7.4 g/dL (6.3-8.3)
[2016-11-04 14:41] LABS: CALCIUM 9.2 mg/dl (8.6-10.4); MAGNESIUM 2.1 mg/dL (1.6-2.3)
--- NOTE | 2016-11-04 22:47 | PN ---
DATE: 11/04/2016 The patient is located in room 560, bed A. REQUESTED BY: Dr. Rakan Wells. REASON FOR FOLLOWUP: Chronic kidney disease (CKD V), anemia, and hypertension, diabetic nephropathy. The patient is a 56-year-old middle-aged [place] female with a past medical history significant for l mariya-standing hypertension, diabetes, CHF, anemia, secondary hyperparathyroidism, hyperkalemia with wo rsening renal function, was admitted with chief complaint of pain on the right side of the face, most ly infra-auricular, and also the loss of vision on the medial side of the right eye. Denies any head ache, dizziness. Denies any chest pain, palpitation. No fever, no cough. VITAL SIGNS FOLLOWS: Blood pressure 170/75, pulse 69, respirations 20, temperature 98.2, saturati on is 96%. HENT AND PHYSICAL EXAMINATION: The patient is a 56-year-old middle-aged female, moderately built, mo derately nourished, not in acute distress. HENT: Conjunctivae pink, sclerae anicteric. Unable to s ee on the medial half of the right eye. No thyroid enlargement. LUNGS: Symmetric on both sides. Bilateral breath sounds present. Clear on auscultation. CARDIOVASCULAR SYSTEM: [place] in the fifth intercostal space midclavicular line. S1 and S2 audible. No murmur or gallop. ABDOMEN: Normal in appearance, soft, tympanic. No guarding, no rigidity, no hepatosplenomegaly. CENTRAL NERVOUS SYSTEM: The patient is alert, awake, oriented x 3, and nonfocal on examination. 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 EXTREMITIES: No cyanosis, no clubbing, no edema. LABORATORY DATA: Include as follows: WBC 8.3, hemoglobin 8.8, hematocrit is 26.6, platelets 224. E SR is 66. Sodium 139, potassium 4.8, chloride 101, CO2 of 19, BUN 52, creatinine 7.0, glucose is 14 4, calcium 9.2, phosphorus 4.8, magnesium 2.1, total bili 0.6. AST 21, ALT 17, alkaline phosphatase 50, and total protein 7.4, albumin is 3.8. C-reactive protein 0.40. Rheumatoid arthritis panel is n egative and JRARED is pending. In summary, the patient is a 56-year-old middle-aged female with a history of hypertension, diabetes, congestive heart failure, anemia, secondary hyperparathyroidism, hyperkalemia, and CKD V with slowly deteriorating renal function, status post left upper extremity arteriovenous fistula placement about a month ago, with a good bruit. 1. Chronic kidney disease stage V secondary to diabetic nephropathy. 2. Anemia secondary to renal failure. 3. Hypertension. 4. Diabetes. PLAN: Continue her current medications and follow with ophthalmology, and will try to hold hemodialy sis until AV fistula is matured. Will continue to monitor BMP and will add Epogen 10,000 units 3 jolie es a week, Monday, Monday, Monday. Will follow with you. Thank you for allowing me to participate in your patient's care. Consider padmini rology evaluation. Chrissie Moore MD cc: [id number] TT: 11/04/2016 22:47:01 Confirmation # [id number] Dictation # [id number] [email or web address]
[2016-11-05 07:23] LABS: BASO # 0.1 K/uL (0.0-0.2); BASO % 0.9 % (0.0-2.0); EOS # 0.2 K/uL (0.0-0.7); EOS % 2.4 % (0.0-4.0); HEMATOCRIT 26.7 % (34.0-47.0); LYMPH # 1.5 K/uL (1.0-4.3); LYMPH % 18.3 % (20.0-40.0); MEAN CELL VOLUME 90.9 fL (81.0-99.0); MEAN CORPUSCULAR HEMOGLOBIN 29.8 pg (27.0-31.0); MEAN CORPUSCULAR HGB CONC 32.8 g/dL (33.0-37.0); MEAN PLATELET VOLUME 8.7 fL (7.2-11.7); MONO # 0.8 K/uL (0.0-0.8); MONO % 10.3 % (0.0-10.0); WHITE BLOOD COUNT 8.2 K/uL (4.8-10.8)
[2016-11-05 07:26] LABS: POTASSIUM 4.5 mmol/L (3.6-5.2)
[2016-11-05 07:28] LABS: BILIRUBIN,TOTAL 0.5 mg/dL (0.2-1.3); CALCIUM 8.2 mg/dl (8.6-10.4); TOTAL PROTEIN 7.1 g/dL (6.3-8.3)
[2016-11-05 07:29] LABS: MAGNESIUM 1.9 mg/dL (1.6-2.3)
[2016-11-05] MEDS: (Novolog) Insulin Aspart, Recombinant 100 u/ml 10 ml vial SC SCH ×4 (07:30→21:52)
[2016-11-05] MEDS: (Lantus) Insulin Glargine, Recombinant SC SCH ×2 (09:44→21:51)
[2016-11-05] MEDS: Multivitamin Vitamin B Complex (Nephro-Vite) Tab PO SCH (09:45)
[2016-11-05] MEDS: Tramadol 25 mg PO PRN (09:47)
--- NOTE | 2016-11-05 10:02 | CON ---
DATE: 11/05/2016 REASON FOR CONSULTATION: Facial pain. HISTORY: This is a 56-year-old female with a multiple-week history of facial pain on the right, cons tant, moderate in intensity. There is no nasal congestion, no nasal discharge. The pain is on the r ight side of the face. The patient also has decreased vision on the right side of the right eye, whi ch is constant. PAST MEDICAL HISTORY: There is no history of ____. MEDICATIONS: As noted in the chart by me. PHYSICAL EXAMINATION: HEAD: Atraumatic, normocephalic. FACE: Good facial movements bilaterally. CONSTITUTIONAL: Well-developed, well-nourished. COMMUNICATION: Communicates very appropriately. EXTERNAL NOSE AND EARS: No masses, no lesions, no erythema, no edema. INTERNAL NOSE: Deviated septum. No masses, no lesions, no erythema, no edema. ORAL CAVITY, OROPHARYNX: No masses, no lesions, no erythema, no edema. LIPS, GUMS: No masses, no lesions, no erythema, no edema. NECK: Supple. THYROID: No thyromegaly, no goiter. LYMPH NODES: No lymphadenopathy of the neck. ASSESSMENT: 1. Facial pain. 2. Decreased vision. I recommend neurology consult. This could be some form of trigeminal neuralgia or inflammation of th e nerve that was also affecting the eye. I would recommend ophthalmology consult. If neurology and ophthalmology do not have an answer, could also consider infectious disease consult. This may be some sort of infectious process affecting the nerve in the eye and the trigeminal nerve. Sharad Arzola MD cc: [id number] TT: 11/05/2016 10:01:42 Confirmation # [id number] Dictation # [id number] jn
--- NOTE | 2016-11-05 10:08 | CP.PCM.PN ---
Subjective - Date & Time of Evaluation Date of Evaluation: 11/05/16 Time of Evaluation: 10:07 - Subjective Subjective: pt seen and examined, follow up consult is dictated #[id number] Objective - Vital Signs/Intake and Output Vital Signs (last 24 hours): Temp Pulse Resp BP Pulse Ox 98.5 F 61 18 176/78 H 96 11/05/16 07:00 11/05/16 08:47 11/05/16 07:00 11/05/16 09:46 11/05/16 07:00 - Medications Medications: Current Medications Amlodipine Besylate (Norvasc) 10 mg PO DAILY [facility] Last Admin: 11/04/16 10:14 Dose: 10 mg Aspirin (Ecotrin) 81 mg PO DAILY [facility] Last Admin: 11/05/16 09:45 Dose: 81 mg Calcitriol (Rocaltrol) 0.25 mcg PO DAILY [facility] Last Admin: 11/05/16 09:45 Dose: 0.25 mcg Calcium Acetate (Phoslo) 1,334 mg PO TIDCC [facility] Last Admin: 11/05/16 09:43 Dose: 1,334 mg Carvedilol (Coreg) 25 mg PO Q12 [facility] Last Admin: 11/05/16 09:46 Dose: 25 mg Docusate Sodium (Colace) 100 mg PO TID [facility] Last Admin: 11/05/16 09:45 Dose: 100 mg Epoetin [place] (Procrit) 10,000 unit [place] [facility] [place]ous Sulfate (Feosol) 325 mg PO TID [facility] Last Admin: 11/05/16 09:45 Dose: 325 mg Furosemide (Lasix) 40 mg PO DAILY [facility] Last Admin: 11/05/16 09:46 Dose: 40 mg Hydralazine HCl (Apresoline) 10 mg PO BID [facility] Last Admin: 11/05/16 09:45 Dose: 10 mg Insulin Aspart (Novolog) 0 unit SC ACHS [facility] PRN Reason: Protocol Last Admin: 11/05/16 07:30 Dose: Not Given Insulin Glargine (Lantus) 25 unit SC Q12 [facility] Last Admin: 11/05/16 09:44 Dose: 25 units Isosorbide Mononitrate (Imdur) 60 mg PO DAILY [facility] Last Admin: 11/05/16 09:45 Dose: 60 mg Rosuvastatin Calcium (Crestor) 10 mg PO HS [facility] Last Admin: 11/04/16 21:37 Dose: 10 mg Sodium Bicarbonate (Sodium Bicarbonate Tab) 650 mg PO TID [facility] Last Admin: 11/05/16 09:44 Dose: 650 mg Sodium Polystyrene Sulfonate (Kayexalate Oral Susp) 15 gm PO MWF [facility] Last Admin: 11/04/16 10:13 Dose: 15 gm Tramadol HCl (Ultram) 25 mg PO Q8 PRN PRN Reason: Pain, moderate (4-7) Last Admin: 11/05/16 09:47 Dose: 25 mg Vitamin B Complex/Vit C/Folic Acid (Nephro-Mary) 1 tab PO DAILY [facility] Last Admin: 11/05/16 09:45 Dose: 1 tab - Labs Labs: 11/05/16 07:08 11/05/16 07:08
--- NOTE | 2016-11-05 11:02 | PN ---
DATE: 11/05/2016 FOLLOWUP RENAL CONSULTATION The patient is located in room 568, bed A. REQUESTED BY: Rakan Wells MD. REASON FOR FOLLOWUP: CKD V, anemia, and visual field defect. HISTORY OF PRESENT ILLNESS: The patient is a 56-year-old middle-aged female with a past medic al history significant for long-standing hypertension, diabetes, anemia, secondary hyperparathyroidis m, hyperkalemia, metabolic acidosis, CKD V with worsening renal function, was admitted with the chief complaint of pain on the temporal area, and preauricular area on the right side of the face for the last 1 week, and also unable to see vision on the nasal side of the right eye for the last 2-3 days p rior to the admission, and the patient still complains of pain on the right side of the face. Denies any chest pain, palpitation. Denies any fever, cough, no abdominal pain, no nausea, vomiting or jahaira rrhea. PHYSICAL EXAMINATION: VITAL SIGNS: This morning as follows: Blood pressure 174/75, pulse 65, respirations 18, temperature 98.5, saturation 96%. Height is 4 feet 11 inches, and weight is 143 pounds. GENERAL: The patient is a 56-year-old middle-aged female, well-built, well-nourished, not in distres s. HEENT: Conjunctivae are pink. Sclerae are anicteric. Unable to see on the nasal half of the right eye. Eye movements appear normal. Tongue is moist. NECK: Trachea is midline. LUNGS: Symmetric on both sides. Bilateral breath sounds present. Clear on auscultation. CARDIOVASCULAR: [place] at the fifth intercostal space midclavicular line. S1 and S2 audible. No murm ur, no gallop. ABDOMEN: Normal in appearance, soft, tympanic. No guarding, no rigidity. No hepatosplenomegaly. CENTRAL NERVOUS SYSTEM: The patient is alert, awake, oriented x 3, nonfocal on examination. EXTREMITIES: The patient has tenderness on the preauricular and also tenderness over the temporal ar billy on the right side. No pain, no tenderness on the left side. LABORATORY DATA: Include as follows: As of yet 11/05/2016, WBC 8.3, hemoglobin 8.8. Hematocrit is 2 6.7. Platelets are 203. Sodium 141, potassium 4.5, chloride 104, CO2 of 20, BUN 47, creatinine 6.6, glucose ____, calcium 8.2, and magnesium 1.9. Total bili 0.____, AST 14, ALT 18. Alkaline phos is 48, and total protein 7.1. Albumin is 3.6. JARRED is pending. Rheumatoid arthritis panel is negative. C-reactive protein is 0.4. SUMMARY: The patient is a 56-year-old female with a past medical history of longstanding hypertensio n, diabetes, CKD V, anemia, secondary hyperparathyroidism, hyperkalemia, metabolic acidosis with pain on the right side of the face preauricular area and also in temporal area with vision loss on the na karie aspect of the right eye. 1. CKD V secondary to diabetic nephropathy. 2. Anemia secondary to renal failure. 3. Vision loss on the nasal half of the right eye, rule out ischemia, rule out cerebrovascular accid ent, and rule out temporal arteritis. Check ESR level, and also continue all her current medications - Epogen, and all other blood pressure medicine. Follow up with neurology, Dr. Puri, and repeat ES R level today. We will follow with you. Thank you for allowing me to participate in your patient's care. Chrissie Moore MD cc: [id number] TT: 11/05/2016 11:01:17 Confirmation # [id number] Dictation # [id number] [email or web address]
[2016-11-05] MEDS ORDERED: Oxycodone/Acetaminophen 5/325 mg Tab PO PRN (13:03)
[2016-11-05] MEDS ORDERED: Tramadol 25 mg PO PRN (13:05)
--- NOTE | 2016-11-05 14:59 | CP.PCM.PN ---
Subjective - Date & Time of Evaluation Date of Evaluation: 11/05/16 Time of Evaluation: 09:40 - Subjective Subjective: clinically same Objective - Vital Signs/Intake and Output Vital Signs (last 24 hours): Temp Pulse Resp BP Pulse Ox 98.5 F 61 18 176/78 H 96 11/05/16 07:00 11/05/16 08:47 11/05/16 07:00 11/05/16 09:46 11/05/16 07:00 Intake and Output: 11/05/16 11/05/16 06:59 18:59 Intake Total 480 Balance 480 - Medications Medications: Current Medications Amlodipine Besylate (Norvasc) 10 mg PO DAILY [facility] Last Admin: 11/05/16 14:08 Dose: 10 mg Aspirin (Ecotrin) 81 mg PO DAILY [facility] Last Admin: 11/05/16 09:45 Dose: 81 mg Calcitriol (Rocaltrol) 0.25 mcg PO DAILY [facility] Last Admin: 11/05/16 09:45 Dose: 0.25 mcg Calcium Acetate (Phoslo) 1,334 mg PO TIDCC [facility] Last Admin: 11/05/16 14:08 Dose: 1,334 mg Carbamazepine (Tegretol-Xr) 100 mg PO Q12 [facility] Carvedilol (Coreg) 25 mg PO Q12 [facility] Last Admin: 11/05/16 09:46 Dose: 25 mg Clopidogrel Bisulfate (Plavix) 75 mg PO DAILY [facility] Docusate Sodium (Colace) 100 mg PO TID [facility] Last Admin: 11/05/16 14:08 Dose: 100 mg Epoetin Wild (Procrit) 10,000 unit SC MWF [facility] Ferrous Sulfate (Feosol) 325 mg PO TID [facility] Last Admin: 11/05/16 14:08 Dose: 325 mg Furosemide (Lasix) 40 mg PO DAILY [facility] Last Admin: 11/05/16 09:46 Dose: 40 mg Hydralazine HCl (Apresoline) 10 mg PO BID [facility] Last Admin: 11/05/16 09:45 Dose: 10 mg Insulin Aspart (Novolog) 0 unit SC ACHS [facility] PRN Reason: Protocol Last Admin: 11/05/16 14:09 Dose: 2 unit Insulin Glargine (Lantus) 25 unit SC Q12 [facility] Last Admin: 11/05/16 09:44 Dose: 25 units Isosorbide Mononitrate (Imdur) 60 mg PO DAILY [facility] Last Admin: 11/05/16 09:45 Dose: 60 mg Oxycodone/Acetaminophen (Percocet 5/325 Mg Tab) 1 tab PO Q6H PRN PRN Reason: Pain, severe (8-10) Stop: 11/08/16 13:04 Rosuvastatin Calcium (Crestor) 10 mg PO HS [facility] Last Admin: 11/04/16 21:37 Dose: 10 mg Sodium Bicarbonate (Sodium Bicarbonate Tab) 650 mg PO TID [facility] Last Admin: 11/05/16 14:08 Dose: 650 mg Sodium Polystyrene Sulfonate (Kayexalate Oral Susp) 15 gm PO MWF [facility] Last Admin: 11/04/16 10:13 Dose: 15 gm Vitamin B Complex/Vit C/Folic Acid (Nephro-Mary) 1 tab PO DAILY [facility] Last Admin: 11/05/16 09:45 Dose: 1 tab - Labs Labs: 11/05/16 07:08 11/05/16 07:08 - Constitutional Appears: Well - Head Exam Head Exam: ATRAUMATIC, NORMAL INSPECTION, NORMOCEPHALIC - Eye Exam Eye Exam: EOMI, Normal appearance, PERRL Pupil Exam: NORMAL ACCOMODATION, PERRL - ENT Exam ENT Exam: Mucous Membranes Moist, Normal Exam - Neck Exam Neck Exam: Full ROM, Normal Inspection. absent: Lymphadenopathy - Respiratory Exam Respiratory Exam: Decreased Breath Sounds - Cardiovascular Exam Cardiovascular Exam: REGULAR RHYTHM, +S1, +S2 - GI/Abdominal Exam GI & Abdominal Exam: Soft, Diminished Bowel Sounds - Rectal Exam Rectal Exam: Deferred Assessment and Plan (1) Visual field defect Status: Acute (2) HTN (hypertension) Status: Acute (3) Chronic renal disease Status: Acute (4) Facial pain Status: Acute
[2016-11-05 16:47] VITALS: RESP 20
[2016-11-05 21:20] LABS: FREE T4 1.15 ng/dL (0.78-2.19)
[2016-11-05 21:33] LABS: THYROID STIMULATING HORMONE 3.08 mIU/L (0.46-4.68)
[2016-11-06 00:17] VITALS: TEMP 98
[2016-11-06] MEDS: (Novolog) Insulin Aspart, Recombinant 100 u/ml 10 ml vial SC SCH ×2 (07:18→11:47)
[2016-11-06 08:53] VITALS: PULSE 60; O2SAT 95
[2016-11-06] MEDS: Multivitamin Vitamin B Complex (Nephro-Vite) Tab PO SCH (09:19)
[2016-11-06] MEDS: (Lantus) Insulin Glargine, Recombinant SC SCH (09:20)
[2016-11-06 09:21] VITALS: BP 130/70
--- NOTE | 2016-11-06 13:29 | PN ---
DATE: 11/06/2016 NEUROLOGICAL PROBLEMS: 1. 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 2. Trigeminal neuralgia. 3. Peripheral neuropathy, secondary to renal disease and diabetes mellitus. PHYSICAL EXAMINATION: VITAL SIGNS: Blood pressure 130/70, mean arterial pressure is 90, respiratory rate 16, temperature 98.0. NEUROLOGIC: The patient is awake, alert, comprehended. By looking, she does not show any evidence of suffering from pain. Still, she admits to pain over her cheek region. The patient's condition has been discussed with her son. She has been doing well with the medication. However, she has pain at present. Vision is unchanged. The rest of the examination unchanged to compare with my previous exam. Official report from MR angiogram and official is still pending. This is a possible occlusion of ophthalmic artery as per my evaluation. However, the official report is still pending. Continue aspirin and Plavix for now with Tegretol. Patient's condition is discussed with her son. Chalino Puri MD cc: [id number] TT: 11/06/2016 13:28:57 Confirmation # [id number] Dictation # [id number] en MTDD
--- NOTE | 2016-11-07 08:35 | CON ---
DATE: 11/05/2016 TIME OF EVALUATION: 1:30 p.m. REASON FOR THE CONSULTATION: Facial pain and visual disturbances of the right eye. CHIEF COMPLAINT: The patient was brought into [facility] with a history of 1 week of right-side d facial pain. For the last 1 week the patient also has a problem seeing in her right eye. From padmini rological point of view, I was called in to evaluate her for further management. HISTORY OF PRESENTING ILLNESS: The patient is a 56-year-old right-handed female presenting wi th about 2 weeks' history of right facial pain. Pain is mostly located over the cheek region, which is radicular in nature. At times it has lancinating features, not associating with facial weakness. No history hearing difficulty, dysfunction in her sensation of feeling, taste. No history of neck pain, no history of fall, no history of injuries to her neck and head. She has been complaining of a 1-week history of visual disturbances in her right eye. She claims that her pain is 10/10, however, she seems to be comfortable with that amount of pain. No sign of nausea or vomiting. No history of recent loss of weight. No history of fever. She has been suffering from chronic kidney disease ass ociating with anemia. No jaw claudication. No similar episodes happened in the past. PAST MEDICAL HISTORY: End-stage renal disease; not in dialysis. The patient also suffering from non insulin dependent diabetes mellitus, dyslipidemia, renal stones. FAMILY HISTORY: Not available. PERSONAL HISTORY: Denies smoking or alcohol use. REVIEW OF SYSTEMS: As per H and P. MEDICATIONS: Hydralazine, Colace, Coreg, Crestor, aspirin, Feosol, Imdur, sulfonate, Levaquin, Lantus insulin, Lasix, folic acid, Norvasc, NovoLog insulin, oxycodone, PhosLo, and Procrit. VITAL SIGNS: Blood pressure of 126/64, with mean arterial pressure of 84, respiratory rate 20, tempe rature 97.9, with pulse rate 60 irregular. NECK: Supple. No carotid bruit. HEART SOUNDS: Regular. CHEST: Fair air entry. EXTREMITIES: No edema in legs. NEUROLOGIC EXAMINATION: The patient is examined in the presence of her son. She is communicable onl y in her [place] language. She is awake, alert, oriented to person, place, and time. Speech is clear . Naming, repetition, fluency, comprehension all within normal. CRANIAL NERVES: Visual field intact. On monocular examination the patient does have some visual dis turbances on appreciating her nasal field in her right eye. Left eye examination is normal. Pupils reactive to light. Extraocular movements are normal. No nystagmus, no facial sensory deficit, no fa cial asymmetry. Hearing is normal. Tongue is midline. Good gag. MOTOR EXAMINATION: Outstretched hand with eyes closed, no drift noted. Power is symmetric on either side. Deep tendon reflexes biceps, brachioradialis, triceps, knee, and ankle all are trace. Plant ars are downgoing. SENSORY EXAMINATION: Shows distal sensory motor neuropathy which is probably secondary to her underl mitra diabetes mellitus and superimposed renal disease. COORDINATION: Ogmjph-lceq-[id number] test is intact. EXAMINATION OF THE FACE: Tenderness over the right cheek region. Tinel's sign positive. On tapping the right maxillary region of the trigeminal nerve is positive. Temporal arteries not palpable, not beaded. GAIT: Deferred at this time. 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 Her visual disturbances are related to possible ocular pathology. It could be an ischemic process. There is no clear evidence of central nervous system dysfunction at present. The patient also suffering from bilateral distal symmetric sensory motor neuropathy. WORKUP: CT of the head, reviewed by me: No acute pathology. MRI of the brain, also reviewed by me: No acute pathology. MR angiogram of the neck and been reviewed by me. No official report is available. On reviewing myself, there is some blockage of the right ophthalmic artery from va ddle cerebral artery. However, official report is still pending. BLOOD WORKUP: WBC 8.2, hemoglobin 8.8, hematocrit 36.7, platelet 203. Sodium 141, potassium 4.5, ch loride 104, bicarbonate 20, BUN 47, creatinine 6.6, glucose 183, calcium 8.2. AST 21, ALT 17. C-reena ctive protein is 0.4. Sed rate is 77. Rheumatoid panel is negative. RECOMMENDATIONS: 1. The patient presenting symptoms of visual disturbances related to her significant risk factors inc luding obesity, hypertension, dyslipidemia, [id number] diabetes mellitus, and end-stage re nal disease. She carries a high risk of ischemic process. The current presentation probably anterio r ischemic optic neuropathy. 2. The patient is suffering from cranial neuropathy, which is also related to her diabetes mellitus m anifesting with isolated trigeminal neuropathy. RECOMMENDATION: I would like to add Plavix on top of HER aspirin dose. The current examination not consistent with giant cell arteritis. At this point, I do not consider h er to be on steroids. I would followed the MR angiogram report from the radiologist, and will follow further recommendation depending on the report. Continue control of the diabetes mellitus, and the patient is being followed by software installer in case, for hemodialysis. The patient was prescribed Tegretol 200 mg p.o. for her trigeminal neuropathy. The patient's condition has been discussed with her software installer. The patient will be followed close ly with you. Chalino Puri MD cc: [id number] TT: 11/05/2016 21:34:12 Confirmation # [id number] Dictation # [id number] alfredo
[2016-11-07] MEDS ORDERED: Epoetin Alfa 10,000 unit/ml Dialysis SC SCH (09:00)
--- NOTE | 2016-11-07 16:43 | MRI ---
PROCEDURE: Magnetic Resonance Angiography Brain HISTORY: STENOSIS COMPARISON: None available. TECHNIQUE: 3D time of flight MR angiography of the intracranial arteries was performed. Rotating maximum intensity projection images were generated. FINDINGS: INTERNAL CEREBRAL ARTERIES: Unremarkable. The skull base, petrous, cavernous and supraclinoid segments are bilaterally widely patient. ANTERIOR CEREBRAL ARTERIES: The right A1 is smaller than the left. . Smaller distal branches unremarkable, as visualized. MIDDLE CEREBRAL ARTERIES: Unremarkable. M1 and M2 segments are widely patent. Perisylvian branches grossly symmetric. POSTERIOR CIRCULATION: Basilar Artery: Unremarkable. Distal Vertebral Arteries: The distal right vertebral artery is smaller than the left. Posterior Cerebral Arteries: The right P1 is small in size. The right posterior communicated artery is prominent in size. Posterior Inferior Cerebellar Arteries: Unremarkable. ANEURYSM/ VASCULAR MALFORMATIONS: None. OTHER FINDINGS: None. IMPRESSION: No evidence of focal stenosis or occlusion in the visualized intracranial arteries. Small size right A1 and P1 likely congenital variant. The right vertebral artery is smaller than the left.
--- NOTE | 2016-11-07 16:45 | MRI ---
PROCEDURE: MR Angiography of the neck without contrast HISTORY: STENOSIS COMPARISON: None available. TECHNIQUE: 3D [id number]-[id number] angiography of the neck was performed. Rotating maximum intensity projection images of the cervical carotid and vertebral arteries were generated. The origins of the common carotid arteries were not visualized, which is a limitation inherent to the non-contrast time of flight technique. FINDINGS: RIGHT CAROTID ARTERIES: Common Carotid Artery: Normal. Carotid Bifurcation: Normal. Internal Carotid Artery:Normal. External Carotid Artery (proximal branches): Normal. LEFT CAROTID ARTERIES: Common Carotid Artery: Normal. Carotid Bifurcation: Normal. Internal Carotid Artery:Normal. External Carotid Artery (proximal branches): Normal. VERTEBRAL ARTERIES: Right Vertebral Artery: The right vertebral artery is smaller than the left. Left Vertebral Artery: Normal. OTHER FINDINGS: None. IMPRESSION: No evidence of focal stenosis or occlusion in the carotid arteries at the neck. The right vertebral artery is smaller than the left.
== END 2016-11-06 14:31 | disposition home or self-care (01) | DRG 18 ==
LOC: C.ER 19:45 → C.9E 11-02 00:39 → C.5T 11-02 06:47 → OBSVTOIN 11-03 11:50
PROVIDERS: ADMIT Internal Medicine Nephrology; ATTEND Internal Medicine Nephrology
DX: E11.40 Type 2 diabetes mellitus with diabetic neuropathy, unspecified (principal); H47.011 Ischemic optic neuropathy, right eye; G50.0 Trigeminal neuralgia; I12.0 Hypertensive chronic kidney disease with stage 5 chronic kidney disease or end stage renal disease; E11.21 Type 2 diabetes mellitus with diabetic nephropathy; N18.5 Chronic kidney disease, stage 5; E11.319 Type 2 diabetes mellitus with unspecified diabetic retinopathy without macular edema; N25.81 Secondary hyperparathyroidism of renal origin; D63.1 Anemia in chronic kidney disease; E78.00 Pure hypercholesterolemia, unspecified; Z79.4 Long term (current) use of insulin; Z87.442 Personal history of urinary calculi

== ENCOUNTER 2018-02-24 10:33 | Observation (INO) | payer MEDICAID, OTHER ==
[2018-02-24 10:34] VITALS: BMI 28.6
[2018-02-24 11:18] LABS: BASO % 0.5 % (0.0-2.0); EOS # 0.2 K/uL (0.0-0.7); EOS % 2.3 % (0.0-4.0); HEMOGLOBIN 7.9 g/dL (11.0-16.0); LYMPH # 1.1 K/uL (1.0-4.3); MEAN CORPUSCULAR HGB CONC 34.7 g/dL (33.0-37.0); MEAN PLATELET VOLUME 8.5 fL (7.2-11.7); MONO # 0.8 K/uL (0.0-0.8); MONO % 10.7 % (0.0-10.0); NEUT # 5.3 K/uL (1.8-7.0); NEUT % 71.5 % (50.0-75.0); RBC 2.55 Mil/uL (3.80-5.20); RED CELL DISTRIBUTION WIDTH 13.9 % (11.5-14.5); WHITE BLOOD COUNT 7.4 K/uL (4.8-10.8)
[2018-02-24 11:19] LABS: MEAN CELL VOLUME 89.3 fL (81.0-99.0)
[2018-02-24 11:33] LABS: INR 1.1; PROTHROMBIN TIME 11.7 SECONDS (9.7-12.2)
[2018-02-24 11:38] LABS: ALB/GLOB RATIO 1.3 (1.0-2.1); ALBUMIN 4.3 g/dL (3.5-5.0); ALT/SGPT 21 U/L (9-52); AST/SGOT 21 U/L (14-36); BLOOD UREA NITROGEN 71 mg/dL (7-17); CALCIUM 9.8 mg/dl (8.6-10.4)
[2018-02-24 11:41] LABS: B-TYPE NATRIURETIC PEPTIDE 5250 pg/mL (0-900); CK-MB 1.07 ng/mL (0.0-3.38)
--- NOTE | 2018-02-24 11:45 | C.PDOC ---
History Of Present Illness 58 year old female, with PMHx of chronic kidney disease (not on dialysis), HTN, diabetes, presents to ED for evaluation of non-radiating chest pain that developed last night at 2am which woke her up from her sleep. Pt denies diaphoresis, shortness of breath, or lower extremity pain/swelling. Notes that her pain improved after an episode of vomiting this morning. Notes taking Aspirin last night. Denies fever, chills, abdominal pain, diarrhea, cough, headache, dizziness, or any other associated symptoms at this time. Time Seen by Provider: 02/24/18 11:10 Chief Complaint (Nursing): Chest Pain History Per: Patient History/Exam Limitations: no limitations Onset/Duration Of Symptoms: Days Current Symptoms Are (Timing): Still Present Quality: "Pain" Associated Symptoms: denies: Dyspnea, Diaphoresis, Syncope Modifying Factors: None Exacerbating Factors: None Alleviating Factors: None Additional History Per: Patient, Family Past Medical History Reviewed: Historical Data, Nursing Documentation, Vital Signs Vital Signs: Last Vital Signs Temp 97.9 F 02/24/18 10:40 Pulse 63 02/24/18 10:40 Resp 16 02/24/18 10:40 BP 198/73 H 02/24/18 10:40 Pulse Ox 100 02/24/18 11:59 - Medical History PMH: Anemia, HTN, Hypercholesterolemia, Kidney Stones (NO SURGERY), Chronic Kidney Disease (NO DIALYSIS YET) Family History: States: Unknown Family Hx - Social History Hx Alcohol Use: No Hx Substance Use: No - Immunization History Hx Tetanus Toxoid Vaccination: No Hx Influenza Vaccination: No Hx Pneumococcal Vaccination: No Review Of Systems Except As Marked, All Systems Reviewed And Found Negative. Constitutional: Negative for: Fever, Chills Cardiovascular: Positive for: Chest Pain. Negative for: Palpitations, Edema, Light Headedness Respiratory: Negative for: Cough, Shortness of Breath, Sputum Gastrointestinal: Positive for: Vomiting. Negative for: Abdominal Pain, Diarrhea Neurological: Negative for: Headache, Dizziness Physical Exam - Physical Exam Appears: Non-toxic, No Acute Distress Skin: Normal Color, Warm, Dry Head: Atraumatic, Normacephalic Eye(s): bilateral: Normal Inspection Oral Mucosa: Moist Neck: Normal ROM, Supple Chest: Symmetrical, No Tenderness Cardiovascular: Rhythm Regular, No Murmur Respiratory: Normal Breath Sounds, No Rales, No Rhonchi, No Wheezing Gastrointestinal/Abdominal: Soft, No Tenderness Extremity: Normal ROM, Other ((+) thrill to left AV fistula) Neurological/Psych: Oriented x3, Normal Speech ED Course And Treatment - Laboratory Results Result Diagrams: 02/24/18 11:12 02/24/18 11:12 O2 Sat by Pulse Oximetry: 100 (RA) Pulse Ox Interpretation: Normal Medical Decision Making Medical Decision Making: Plan: Blood work Urinalysis CXR EKG Aspirin pt with multiple risk factors for cardiac disease- htn. dm. rf; noraml ekg. neg trop, to be admitted to Dr Belinda Wells to telemetry Disposition Discussed With Dr.: Yanet Wells - Disposition Forms: Personal Style Finder (Lao) - Clinical Impression Clinical Impression: Chest pain, HTN (hypertension) - PA / REVENUE RESEARCH ANALYST / Resident Statement MD/DO has reviewed & agrees with the documentation as recorded. - Scribe Statement The provider has reviewed the documentation as recorded by the Scribe KP All medical record entries made by the Scribe were at my direction and personally dictated by me. I have reviewed the chart and agree that the record accurately reflects my personal performance of the history, physical exam, medical decision making, and the department course for this patient. I have also personally directed, reviewed, and agree with the discharge instructions and disposition.
[2018-02-24 12:06] LABS: GFR AFRICAN-AMERICAN 4; GFR NON-AFRICAN AMERICAN 3
--- NOTE | 2018-02-24 12:12 | RAD ---
Chest x-ray single frontal view History: Chest pain. Comparison: None available. Findings: Mild venous congestion. Right hilar prominence. Top normal heart size. Degenerative changes in the spine. Calcification within the aorta. Impression: Mild venous congestion. Right hilar prominence. Top normal heart size.
[2018-02-24 12:45] LABS: SQUAMOUS EPITHIAL 2 /hpf (0-5); URINE BACTERIA RARE (<OCC); URINE BILIRUBIN NEGATIVE (NEGATIVE); URINE BLOOD NEGATIVE (NEGATIVE); URINE CLARITY Clear (Clear); URINE COLOR Straw (YELLOW); URINE GLUCOSE (UA) 3+ mg/dL (Normal); URINE LEUKOCYTE ESTERASE NEG Leu/uL (Negative); URINE PROTEIN 3+ mg/dL (NEGATIVE); URINE UROBILINOGEN NORMAL mg/dL (0.2-1.0)
--- NOTE | 2018-02-24 15:05 | CP.PCM.HP ---
Past Patient History - Past Medical History & Family History Past Medical History?: Yes - Past Social History Smoking Status: Never Smoked - CARDIAC Hx Hypercholesterolemia: Yes Hx Hypertension: Yes - PULMONARY Hx Respiratory Disorders: No - HEENT Hx HEENT Problems: Yes (DIABETIC RETINOPATHY) - RENAL Hx Chronic Kidney Disease: Yes (NO DIALYSIS YET) Hx Kidney Stones: Yes (NO SURGERY) - ENDOCRINE/METABOLIC Hx Endocrine Disorders: Yes Hx Diabetes Mellitus Type 1: Yes - HEMATOLOGICAL/ONCOLOGICAL Hx Anemia: Yes - MUSCULOSKELETAL/RHEUMATOLOGICAL Hx Back Pain: Yes (CERVICAL/LUMBAR) Hx Falls: No - GASTROINTESTINAL Hx Gastrointestinal Disorders: No - GENITOURINARY/GYNECOLOGICAL Hx Genitourinary Disorders: Yes (RENAL FAILURE) - PSYCHIATRIC Hx Substance Use: No - SURGICAL HISTORY Hx Surgeries: Yes (left arm fistula) Hx Tubal Ligation: Yes - ANESTHESIA Hx Anesthesia: Yes Hx Anesthesia Reactions: Yes (WOKE UP DURING PROCEDURE) Hx Malignant Hyperthermia: No Meds Allergies/Adverse Reactions: Allergies Allergy/AdvReac Type Severity Reaction Status Date / Time No Known Allergies Allergy Verified 11/01/16 19:59 Physical Exam - Constitutional Appears: Well - Head Exam Head Exam: ATRAUMATIC, NORMAL INSPECTION, NORMOCEPHALIC - Eye Exam Eye Exam: EOMI, Normal appearance, PERRL Pupil Exam: NORMAL ACCOMODATION, PERRL - ENT Exam ENT Exam: Mucous Membranes Moist, Normal Exam - Neck Exam Neck exam: Positive for: Normal Inspection - Respiratory Exam Respiratory Exam: Decreased Breath Sounds - Cardiovascular Exam Cardiovascular Exam: REGULAR RHYTHM, +S1, +S2 - GI/Abdominal Exam GI & Abdominal Exam: Diminished Bowel Sounds, Soft - Rectal Exam Rectal Exam: Deferred Results - Vital Signs Recent Vital Signs: Last Vital Signs Temp 97.5 F L 02/24/18 14:25 Pulse 58 L 02/24/18 14:26 Resp 20 02/24/18 14:25 BP 195/69 H 02/24/18 14:25 Pulse Ox 97 02/24/18 14:25 - Labs Result Diagrams: 02/24/18 11:12 02/24/18 11:12 Labs: Laboratory Results - last 24 hr 02/24/18 02/24/18 02/24/18 11:12 11:12 11:12 WBC 7.4 RBC 2.55 L Hgb 7.9 L Hct 22.8 L MCV 89.3 D MCH 31.0 MCHC 34.7 RDW 13.9 Plt Count 207 MPV 8.5 Neut % (Auto) 71.5 Lymph % (Auto) 15.0 L [place] % (Auto) 10.7 H Eos % (Auto) 2.3 Baso % (Auto) 0.5 Neut # (Auto) 5.3 Lymph # (Auto) 1.1 [place] # (Auto) 0.8 Eos # (Auto) 0.2 Baso # (Auto) 0.0 PT 11.7 INR 1.1 APTT 34 Sodium 141 Potassium 4.7 Chloride 96 L Carbon Dioxide 28 Anion Gap 22 H BUN 71 H Creatinine 11.5 H* Est GFR ( Amer) 4 Est GFR (Non-Af Amer) 3 POC Glucose (mg/dL) Random Glucose 179 H Calcium 9.8 Total Bilirubin 0.8 AST 21 ALT 21 Alkaline Phosphatase 50 Total Creatine Kinase 76 CK-MB (Mass) 1.07 Troponin I < 0.0120 NT-Pro-B Natriuret Pep 5250 H Total Protein 7.4 Albumin 4.3 Globulin 3.2 Albumin/Globulin Ratio 1.3 Urine Color Urine Clarity Urine pH Ur Specific [place] Urine Protein Urine Glucose (UA) Urine Ketones Urine Blood Urine Nitrate Urine Bilirubin Urine Urobilinogen Ur Leukocyte Esterase Urine WBC (Auto) Urine RBC (Auto) Ur Squamous Epith Cells Urine Bacteria 02/24/18 02/24/18 11:40 12:27 WBC RBC Hgb Hct MCV MCH MCHC RDW Plt Count MPV Neut % (Auto) Lymph % (Auto) [place] % (Auto) Eos % (Auto) Baso % (Auto) Neut # (Auto) Lymph # (Auto) [place] # (Auto) Eos # (Auto) Baso # (Auto) PT INR APTT Sodium Potassium Chloride Carbon Dioxide Anion Gap BUN Creatinine Est GFR ( Amer) Est GFR (Non-Af Amer) POC Glucose (mg/dL) 212 H Random Glucose Calcium Total Bilirubin AST ALT Alkaline Phosphatase Total Creatine Kinase CK-MB (Mass) Troponin I NT-Pro-B Natriuret Pep Total Protein Albumin Globulin Albumin/Globulin Ratio Urine Color Straw Urine Clarity Clear Urine pH 7.0 Ur Specific [place] 1.009 Urine Protein 3+ H Urine Glucose (UA) 3+ H Urine Ketones Negative Urine Blood Negative Urine Nitrate Negative Urine Bilirubin Negative Urine Urobilinogen Normal Ur Leukocyte Esterase Neg Urine WBC (Auto) < 1 Urine RBC (Auto) < 1 Ur Squamous Epith Cells 2 Urine Bacteria Rare
[2018-02-24] MEDS: (Lantus) Insulin Glargine, Recombinant SC SCH (18:13)
[2018-02-24 19:56] LABS: CK-MB 0.93 ng/mL (0.0-3.38)
[2018-02-25 04:36] LABS: CK-MB 0.71 ng/mL (0.0-3.38)
--- NOTE | 2018-02-25 08:33 | CP.PCM.CON ---
History of Present Illness - History of Present Illness History of Present Illness: CC: Shortness of breath HPI: 58 year old female 1. CKD 5 s/p AVF 2. HTN chronic and poorly controlled 3. DM is chronic and stable on insulin sliding scale She is here for atypical chest pain in the setting of worsening renal failure and diastolic CHF Review of Systems - Review of Systems All systems: reviewed and no additional remarkable complaints except Past Patient History - Past Medical History & Family History Past Medical History?: Yes - Past Social History Smoking Status: Never Smoked - CARDIAC Hx Hypercholesterolemia: Yes Hx Hypertension: Yes - PULMONARY Hx Respiratory Disorders: No - HEENT Hx HEENT Problems: Yes (DIABETIC RETINOPATHY) - RENAL Hx Chronic Kidney Disease: Yes (NO DIALYSIS YET) Hx Kidney Stones: Yes (NO SURGERY) - ENDOCRINE/METABOLIC Hx Endocrine Disorders: Yes Hx Diabetes Mellitus Type 1: Yes - HEMATOLOGICAL/ONCOLOGICAL Hx Anemia: Yes - MUSCULOSKELETAL/RHEUMATOLOGICAL Hx Falls: No - GASTROINTESTINAL Hx Gastrointestinal Disorders: No - GENITOURINARY/GYNECOLOGICAL Hx Genitourinary Disorders: Yes (RENAL FAILURE) - PSYCHIATRIC Hx Substance Use: No - SURGICAL HISTORY Hx Surgeries: Yes (left arm fistula) Hx Tubal Ligation: Yes - ANESTHESIA Hx Anesthesia: Yes Hx Anesthesia Reactions: Yes (WOKE UP DURING PROCEDURE) Hx Malignant Hyperthermia: No Meds Allergies/Adverse Reactions: Allergies Allergy/AdvReac Type Severity Reaction Status Date / Time No Known Allergies Allergy Verified 11/01/16 19:59 - Medications Medications: Current Medications Amlodipine Besylate (Norvasc) 10 mg PO DAILY [facility] Aspirin (Aspirin) 325 mg PO DAILY [facility] Calcitriol (Rocaltrol) 0.25 mcg PO DAILY [facility] Calcium Acetate (Phoslo) 1,334 mg PO TID [facility] Last Admin: 02/24/18 18:13 Dose: 1,334 mg Carvedilol (Coreg) 25 mg PO BID [facility] Last Admin: 02/24/18 18:13 Dose: 25 mg Docusate Sodium (Colace) 100 mg PO TID [facility] Last Admin: 02/24/18 18:13 Dose: 100 mg Ferrous Sulfate (Feosol) 325 mg PO TID [facility] Last Admin: 02/24/18 18:13 Dose: 325 mg Furosemide (Lasix) 40 mg PO BID [facility] Last Admin: 02/24/18 19:28 Dose: 40 mg Home Med (Darbepoetin Wild [Aranesp (Renal)]) 40 mcg SC Q2W [facility] Hydralazine HCl (Apresoline) 10 mg PO BID [facility] Last Admin: 02/24/18 18:09 Dose: 10 mg Insulin Glargine (Lantus) 25 unit SC BID [facility] Last Admin: 02/24/18 18:13 Dose: 25 units Isosorbide Mononitrate (Imdur) 60 mg PO DAILY [facility] Pneumococcal Polyvalent Vaccine (Pneumovax 23 Vaccine) 0.5 ml IM .ONCE ONE Stop: 02/26/18 10:01 Rosuvastatin Calcium (Crestor) 10 mg PO [facility] Last Admin: 02/24/18 21:50 Dose: 10 mg Sodium Polystyrene Sulfonate (Kayexalate Susp) 15 gm PO MWF [facility] Vitamin B Complex/Folic Acid (Berroca) 1 tab PO DAILY [facility] Physical Exam - Constitutional Appears: Well, Non-toxic - Head Exam Head Exam: ATRAUMATIC, NORMAL INSPECTION - Eye Exam Eye Exam: PERRL. absent: Scleral icterus - ENT Exam ENT Exam: Mucous Membranes Moist, Normal External Ear Exam - Neck Exam Neck exam: Positive for: Full Rom. Negative for: Thyromegaly - Respiratory Exam Respiratory Exam: Rales, NORMAL BREATHING PATTERN. absent: Accessory Muscle Use - Cardiovascular Exam Cardiovascular Exam: REGULAR RHYTHM, JVD, RRR, +S1, +S2, Systolic Murmur Additional comments: Left AVF - GI/Abdominal Exam GI & Abdominal Exam: Normal Bowel Sounds. absent: Organomegaly - Extremities Exam Extremities exam: Negative for: calf tenderness, pedal edema - Neurological Exam Neurological exam: CN II-XII Intact, Oriented x3 - Psychiatric Exam Psychiatric exam: Normal Affect, Normal Mood Results - Vital Signs Recent Vital Signs: Last Vital Signs Temp 98.2 F 02/24/18 23:05 Pulse 59 L 02/25/18 06:01 Resp 20 02/24/18 23:05 BP 188/74 H 02/25/18 06:01 Pulse Ox 100 02/25/18 03:53 - Labs Result Diagrams: 02/24/18 11:12 02/24/18 11:12 Labs: Laboratory Results - last 24 hr 02/24/18 02/24/18 02/24/18 11:12 11:12 11:12 WBC 7.4 RBC 2.55 L Hgb 7.9 L Hct 22.8 L MCV 89.3 D MCH 31.0 MCHC 34.7 RDW 13.9 Plt Count 207 MPV 8.5 Neut % (Auto) 71.5 Lymph % (Auto) 15.0 L [place] % (Auto) 10.7 H Eos % (Auto) 2.3 Baso % (Auto) 0.5 Neut # (Auto) 5.3 Lymph # (Auto) 1.1 [place] # (Auto) 0.8 Eos # (Auto) 0.2 Baso # (Auto) 0.0 PT 11.7 INR 1.1 APTT 34 Sodium 141 Potassium 4.7 Chloride 96 L Carbon Dioxide 28 Anion Gap 22 H BUN 71 H Creatinine 11.5 H* Est GFR ( Amer) 4 Est GFR (Non-Af Amer) 3 POC Glucose (mg/dL) Random Glucose 179 H Calcium 9.8 Total Bilirubin 0.8 AST 21 ALT 21 Alkaline Phosphatase 50 Total Creatine Kinase 76 CK-MB (Mass) 1.07 Troponin I < 0.0120 NT-Pro-B Natriuret Pep 5250 H Total Protein 7.4 Albumin 4.3 Globulin 3.2 Albumin/Globulin Ratio 1.3 Urine Color Urine Clarity Urine pH Ur Specific [place] Urine Protein Urine Glucose (UA) Urine Ketones Urine Blood Urine Nitrate Urine Bilirubin Urine Urobilinogen Ur Leukocyte Esterase Urine WBC (Auto) Urine RBC (Auto) Ur Squamous Epith Cells Urine Bacteria 02/24/18 02/24/18 02/24/18 11:40 12:27 16:16 WBC RBC Hgb Hct MCV MCH MCHC RDW Plt Count MPV Neut % (Auto) Lymph % (Auto) [place] % (Auto) Eos % (Auto) Baso % (Auto) Neut # (Auto) Lymph # (Auto) [place] # (Auto) Eos # (Auto) Baso # (Auto) PT INR APTT Sodium Potassium Chloride Carbon Dioxide Anion Gap BUN Creatinine Est GFR ( Amer) Est GFR (Non-Af Amer) POC Glucose (mg/dL) 212 H 205 H Random Glucose Calcium Total Bilirubin AST ALT Alkaline Phosphatase Total Creatine Kinase CK-MB (Mass) Troponin I NT-Pro-B Natriuret Pep Total Protein Albumin Globulin Albumin/Globulin Ratio Urine Color Straw Urine Clarity Clear Urine pH 7.0 Ur Specific [place] 1.009 Urine Protein 3+ H Urine Glucose (UA) 3+ H Urine Ketones Negative Urine Blood Negative Urine Nitrate Negative Urine Bilirubin Negative Urine Urobilinogen Normal Ur Leukocyte Esterase Neg Urine WBC (Auto) < 1 Urine RBC (Auto) < 1 Ur Squamous Epith Cells 2 Urine Bacteria Rare 02/24/18 02/24/18 02/25/18 19:25 21:01 02:21 WBC RBC Hgb Hct MCV MCH MCHC RDW Plt Count MPV Neut % (Auto) Lymph % (Auto) [place] % (Auto) Eos % (Auto) Baso % (Auto) Neut # (Auto) Lymph # (Auto) [place] # (Auto) Eos # (Auto) Baso # (Auto) PT INR APTT Sodium Potassium Chloride Carbon Dioxide Anion Gap BUN Creatinine Est GFR ( Amer) Est GFR (Non-Af Amer) POC Glucose (mg/dL) 232 H 135 H Random Glucose Calcium Total Bilirubin AST ALT Alkaline Phosphatase Total Creatine Kinase 63 CK-MB (Mass) 0.93 Troponin I < 0.0120 NT-Pro-B Natriuret Pep Total Protein Albumin Globulin Albumin/Globulin Ratio Urine Color Urine Clarity Urine pH Ur Specific [place] Urine Protein Urine Glucose (UA) Urine Ketones Urine Blood Urine Nitrate Urine Bilirubin Urine Urobilinogen Ur Leukocyte Esterase Urine WBC (Auto) Urine RBC (Auto) Ur Squamous Epith Cells Urine Bacteria 02/25/18 02/25/18 04:11 06:27 WBC RBC Hgb Hct MCV MCH MCHC RDW Plt Count MPV Neut % (Auto) Lymph % (Auto) [place] % (Auto) Eos % (Auto) Baso % (Auto) Neut # (Auto) Lymph # (Auto) [place] # (Auto) Eos # (Auto) Baso # (Auto) PT INR APTT Sodium Potassium Chloride Carbon Dioxide Anion Gap BUN Creatinine Est GFR ( Amer) Est GFR (Non-Af Amer) POC Glucose (mg/dL) 110 Random Glucose Calcium Total Bilirubin AST ALT Alkaline Phosphatase Total Creatine Kinase 49 CK-MB (Mass) 0.71 Troponin I < 0.0120 NT-Pro-B Natriuret Pep Total Protein Albumin Globulin Albumin/Globulin Ratio Urine Color Urine Clarity Urine pH Ur Specific [place] Urine Protein Urine Glucose (UA) Urine Ketones Urine Blood Urine Nitrate Urine Bilirubin Urine Urobilinogen Ur Leukocyte Esterase Urine WBC (Auto) Urine RBC (Auto) Ur Squamous Epith Cells Urine Bacteria - EKG Data EKG shows normal: Sinus rhythm Rate: Normal - Imaging and Cardiology Chest x-ray Status: Image reviewed by me Additional comment: Poor inspirtory effort Assessment & Plan - Assessment and Plan (Free Text) Assessment: 58 year old female with acute on chronic renal failure renal to determine if high dose of diuretic or dialysis to re achieve euvolemia HTN is uncontrolled due to volume overload DM is chronic and stable on insulin
[2018-02-25] MEDS: (Lantus) Insulin Glargine, Recombinant SC SCH ×2 (09:24→17:17)
[2018-02-26] MEDS ORDERED: Sod Polystyrene Sulf 15 gm/60 ml Susp PO SCH (09:00)
[2018-02-26] MEDS ORDERED: Pneumococcal 23-Valent Vaccine IM ONE (10:00)
[2018-02-26] MEDS: (Lantus) Insulin Glargine, Recombinant SC SCH ×2 (10:08→18:11)
--- NOTE | 2018-02-26 12:59 | CP.PCM.PN ---
Subjective - Date & Time of Evaluation Date of Evaluation: 02/26/18 Time of Evaluation: 12:56 - Subjective Subjective: CP free remains with uncontrolled HTN no volume overload LEYDA/CKD No fevers, chills, N/V Objective - Vital Signs/Intake and Output Vital Signs (last 24 hours): Temp Pulse Resp BP Pulse Ox 97.7 F 59 L 18 220/77 H 97 02/26/18 07:45 02/26/18 12:07 02/26/18 07:45 02/26/18 12:07 02/26/18 08:00 - Medications Medications: Current Medications Amlodipine Besylate (Norvasc) 10 mg PO DAILY [facility] Last Admin: 02/26/18 10:07 Dose: 10 mg Aspirin (Aspirin) 325 mg PO DAILY [facility] Last Admin: 02/26/18 10:07 Dose: 325 mg Calcitriol (Rocaltrol) 0.25 mcg PO DAILY [facility] Last Admin: 02/26/18 10:08 Dose: 0.25 mcg Calcium Acetate (Phoslo) 1,334 mg PO TID [facility] Last Admin: 02/26/18 10:07 Dose: 1,334 mg Carvedilol (Coreg) 25 mg PO BID [facility] Docusate Sodium (Colace) 100 mg PO TID [facility] Last Admin: 02/26/18 10:08 Dose: 100 mg Ferrous Sulfate (Feosol) 325 mg PO TID [facility] Last Admin: 02/26/18 10:07 Dose: 325 mg Furosemide (Lasix) 40 mg PO BID [facility] Last Admin: 02/26/18 10:07 Dose: 40 mg Home Med (Darbepoetin Wild [Aranesp (Renal)]) 40 mcg SC Q2W [facility] Hydralazine HCl (Apresoline) 25 mg PO ONCE ONE Stop: 02/26/18 13:01 Hydralazine HCl (Apresoline) 50 mg PO Q6H PRN PRN Reason: FOR SBP > 180 Insulin Glargine (Lantus) 25 unit SC BID [facility] Last Admin: 02/26/18 10:08 Dose: 25 units Isosorbide Mononitrate (Imdur) 60 mg PO DAILY [facility] Last Admin: 02/26/18 10:07 Dose: 60 mg Rosuvastatin Calcium (Crestor) 10 mg PO [facility] Last Admin: 02/25/18 21:24 Dose: 10 mg Sodium Polystyrene Sulfonate (Kayexalate Susp) 15 gm PO MWF [facility] Last Admin: 02/26/18 10:07 Dose: 15 gm Vitamin B Complex/Folic Acid (Berroca) 1 tab PO DAILY [facility] Last Admin: 02/26/18 10:08 Dose: 1 tab - Labs Labs: 02/24/18 11:12 02/24/18 11:12 PT 11.7 SECONDS (9.7-12.2) 02/24/18 11:12 INR 1.1 02/24/18 11:12 APTT 34 SECONDS (21-34) 02/24/18 11:12 - Constitutional Appears: No Acute Distress - Head Exam Head Exam: ATRAUMATIC, NORMAL INSPECTION, NORMOCEPHALIC - Eye Exam Eye Exam: EOMI, Normal appearance, PERRL - ENT Exam ENT Exam: Mucous Membranes Moist, Normal Oropharynx - Neck Exam Neck Exam: Full ROM. absent: Tenderness - Respiratory Exam Respiratory Exam: Clear to Ausculation Bilateral. absent: Rhonchi, Wheezes - Cardiovascular Exam Cardiovascular Exam: REGULAR RHYTHM, +S1. absent: +S4, Murmur - GI/Abdominal Exam GI & Abdominal Exam: Normal Bowel Sounds - Extremities Exam Extremities Exam: Normal Inspection. absent: Calf Tenderness - Neurological Exam Neurological Exam: Alert, Awake, Oriented x3 - Skin Skin Exam: Normal Color, Warm - Additional Findings Additional findings: Gregory Brandt Assessment and Plan - Assessment and Plan (Free Text) Assessment: 58 year old female with acute on chronic renal failure renal to determine if high dose of diuretic or dialysis to re achieve euvolemia HTN is uncontrolled due to volume overload continue Amlodipine Besylate (Norvasc) 10 mg PO DAILY [facility] continue Carvedilol (Coreg) 25 mg PO BID [facility] ::> increase Hydralazine HCl (Apresoline) to 50 mg PO Q6H PRN PRN Reason: FOR SBP > 180 ::> may need clonidine f/u echo to eval LV strucutre and function ESRD ::> f/u recc per renal DM is chronic and stable on insulin
[2018-02-26 13:34] LABS: HEMOGLOBIN 8.4 g/dL (11.0-16.0); MEAN CELL VOLUME 89.6 fL (81.0-99.0); MEAN CORPUSCULAR HEMOGLOBIN 30.5 pg (27.0-31.0); MEAN CORPUSCULAR HGB CONC 34.1 g/dL (33.0-37.0); MEAN PLATELET VOLUME 8.5 fL (7.2-11.7); RBC 2.77 Mil/uL (3.80-5.20); WHITE BLOOD COUNT 7.2 K/uL (4.8-10.8)
--- NOTE | 2018-02-26 13:37 | CP.PCM.PN ---
Subjective - Date & Time of Evaluation Date of Evaluation: 02/26/18 Time of Evaluation: 13:34 - Subjective Subjective: CHART REVIEWED , PT SEEN AND EXAMINED, COVERING DR Belinda OCONNOR PT ALERT, NO CP., NO SOB., ROS; OTHERWISE NEG. Objective - Vital Signs/Intake and Output Vital Signs (last 24 hours): Temp Pulse Resp BP Pulse Ox 97.7 F 59 L 18 220/77 H 97 02/26/18 07:45 02/26/18 12:07 02/26/18 07:45 02/26/18 12:07 02/26/18 08:00 - Medications Medications: Current Medications Amlodipine Besylate (Norvasc) 10 mg PO DAILY [facility] Last Admin: 02/26/18 10:07 Dose: 10 mg Aspirin (Aspirin) 325 mg PO DAILY [facility] Last Admin: 02/26/18 10:07 Dose: 325 mg Calcitriol (Rocaltrol) 0.25 mcg PO DAILY [facility] Last Admin: 02/26/18 10:08 Dose: 0.25 mcg Calcium Acetate (Phoslo) 1,334 mg PO TID [facility] Last Admin: 02/26/18 10:07 Dose: 1,334 mg Carvedilol (Coreg) 25 mg PO BID [facility] Docusate Sodium (Colace) 100 mg PO TID [facility] Last Admin: 02/26/18 10:08 Dose: 100 mg Ferrous Sulfate (Feosol) 325 mg PO TID [facility] Last Admin: 02/26/18 10:07 Dose: 325 mg Furosemide (Lasix) 40 mg PO BID [facility] Last Admin: 02/26/18 10:07 Dose: 40 mg Home Med (Darbepoetin Wild [Aranesp (Renal)]) 40 mcg SC Q2W [facility] Hydralazine HCl (Apresoline) 50 mg PO Q6H PRN PRN Reason: FOR SBP > 180 Insulin Glargine (Lantus) 25 unit SC BID [facility] Last Admin: 02/26/18 10:08 Dose: 25 units Isosorbide Mononitrate (Imdur) 60 mg PO DAILY [facility] Last Admin: 02/26/18 10:07 Dose: 60 mg Rosuvastatin Calcium (Crestor) 10 mg PO HS [facility] Last Admin: 02/25/18 21:24 Dose: 10 mg Sodium Polystyrene Sulfonate (Kayexalate Susp) 15 gm PO MWF [facility] Last Admin: 02/26/18 10:07 Dose: 15 gm Vitamin B Complex/Folic Acid (Berroca) 1 tab PO DAILY [facility] Last Admin: 02/26/18 10:08 Dose: 1 tab - Labs Labs: 02/24/18 11:12 02/24/18 11:12 PT 11.7 SECONDS (9.7-12.2) 02/24/18 11:12 INR 1.1 02/24/18 11:12 APTT 34 SECONDS (21-34) 02/24/18 11:12 - Constitutional Appears: No Acute Distress, Chronically Ill - Head Exam Head Exam: ATRAUMATIC, NORMOCEPHALIC - Eye Exam Eye Exam: EOMI, Normal appearance - ENT Exam ENT Exam: Mucous Membranes Moist - Neck Exam Neck Exam: Normal Inspection - Respiratory Exam Respiratory Exam: Rhonchi, Respiratory Distress - Cardiovascular Exam Cardiovascular Exam: RRR, +S1, +S2 - GI/Abdominal Exam GI & Abdominal Exam: Soft. absent: Tenderness - Rectal Exam Rectal Exam: Deferred - Extremities Exam Extremities Exam: absent: Calf Tenderness, Pedal Edema - Back Exam Back Exam: absent: CVA tenderness (L), CVA tenderness (R) - Neurological Exam Neurological Exam: Alert, Awake, CN II-XII Intact, Oriented x3 - Psychiatric Exam Psychiatric exam: Normal Mood - Skin Skin Exam: absent: Rash Assessment and Plan (1) Diabetes Status: Acute (2) End stage kidney disease Status: Acute (3) Chest pain Status: Acute (4) HTN (hypertension) Status: Acute - Assessment and Plan (Free Text) Assessment: RESP STATUS COMFORTABLE AT REST., BP UNCONTROLLED, ADJUST MEDS., CARDIO EVAL NOTED., DIURESIS TOLERATED., RENAL EVAL FOR POSS DIALYSIS. CXR REVIEWED., PROG POOR., DISCUSSED WITH STAFF AT LENGTH AND FAMILY AT BEDSIDE.
[2018-02-26 14:07] LABS: ALB/GLOB RATIO 1.4 (1.0-2.1); ALBUMIN 4.1 g/dL (3.5-5.0); CALCIUM 9.4 mg/dl (8.6-10.4)
[2018-02-26 15:59] VITALS: RESP 20
--- NOTE | 2018-02-26 18:44 | CP.PCM.CON ---
History of Present Illness - History of Present Illness History of Present Illness: pt is seen and examined, full consult is dictated #[id number] 1. uncontrolled htn 2. CKD-5 3.hyperkalemia 4. sec. hpth 5. Anemia pt is refusing hd f/u k+ ,low na,low K+ diet c/w kayexalate 15 gm po 6 days a week Past Patient History - Past Medical History & Family History Past Medical History?: Yes - Past Social History Smoking Status: Never Smoked - CARDIAC Hx Hypercholesterolemia: Yes Hx Hypertension: Yes - PULMONARY Hx Respiratory Disorders: No - HEENT Hx HEENT Problems: Yes (DIABETIC RETINOPATHY) - RENAL Hx Chronic Kidney Disease: Yes (NO DIALYSIS YET) Hx Kidney Stones: Yes (NO SURGERY) - ENDOCRINE/METABOLIC Hx Endocrine Disorders: Yes Hx Diabetes Mellitus Type 1: Yes - HEMATOLOGICAL/ONCOLOGICAL Hx Anemia: Yes - MUSCULOSKELETAL/RHEUMATOLOGICAL Hx Falls: No - GASTROINTESTINAL Hx Gastrointestinal Disorders: No - GENITOURINARY/GYNECOLOGICAL Hx Genitourinary Disorders: Yes (RENAL FAILURE) - PSYCHIATRIC Hx Substance Use: No - SURGICAL HISTORY Hx Surgeries: Yes (left arm fistula) Hx Tubal Ligation: Yes - ANESTHESIA Hx Anesthesia: Yes Hx Anesthesia Reactions: Yes (WOKE UP DURING PROCEDURE) Hx Malignant Hyperthermia: No Meds Allergies/Adverse Reactions: Allergies Allergy/AdvReac Type Severity Reaction Status Date / Time No Known Allergies Allergy Verified 11/01/16 19:59 - Medications Medications: Current Medications Amlodipine Besylate (Norvasc) 10 mg PO DAILY [facility] Last Admin: 02/26/18 10:07 Dose: 10 mg Aspirin (Aspirin) 325 mg PO DAILY [facility] Last Admin: 02/26/18 10:07 Dose: 325 mg Calcitriol (Rocaltrol) 0.25 mcg PO DAILY [facility] Last Admin: 02/26/18 10:08 Dose: 0.25 mcg Calcium Acetate (Phoslo) 1,334 mg PO TID [facility] Last Admin: 02/26/18 18:13 Dose: 1,334 mg Carvedilol (Coreg) 25 mg PO BID [facility] Last Admin: 02/26/18 18:12 Dose: 25 mg Docusate Sodium (Colace) 100 mg PO TID [facility] Last Admin: 02/26/18 18:11 Dose: 100 mg Ferrous Sulfate (Feosol) 325 mg PO TID [facility] Last Admin: 02/26/18 18:12 Dose: 325 mg Furosemide (Lasix) 40 mg PO BID [facility] Last Admin: 02/26/18 18:12 Dose: 40 mg Home Med (Darbepoetin Wild [Aranesp (Renal)]) 40 mcg SC Q2W [facility] Hydralazine HCl (Apresoline) 50 mg PO Q6H PRN PRN Reason: FOR SBP > 180 Last Admin: 02/26/18 18:12 Dose: 50 mg Insulin Glargine (Lantus) 25 unit SC BID [facility] Last Admin: 02/26/18 18:11 Dose: 25 units Isosorbide Mononitrate (Imdur) 60 mg PO DAILY [facility] Last Admin: 02/26/18 10:07 Dose: 60 mg Rosuvastatin Calcium (Crestor) 10 mg PO HS [facility] Last Admin: 02/25/18 21:24 Dose: 10 mg Sodium Polystyrene Sulfonate (Kayexalate Susp) 15 gm PO MWF [facility] Last Admin: 02/26/18 10:07 Dose: 15 gm Vitamin B Complex/Folic Acid (Berroca) 1 tab PO DAILY [facility] Last Admin: 02/26/18 10:08 Dose: 1 tab Results - Vital Signs Recent Vital Signs: Last Vital Signs Temp 98.2 F 02/26/18 15:55 Pulse 58 L 02/26/18 15:55 Resp 20 02/26/18 15:55 BP 184/75 H 02/26/18 18:12 Pulse Ox 96 02/26/18 15:55 - Labs Result Diagrams: 02/26/18 13:23 02/26/18 16:59 Labs: Laboratory Results - last 24 hr 02/25/18 02/26/18 02/26/18 22:18 02:19 06:23 WBC RBC Hgb Hct MCV MCH MCHC RDW Plt Count MPV Sodium Potassium Chloride Carbon Dioxide Anion Gap BUN Creatinine Est GFR ( Amer) Est GFR (Non-Af Amer) POC Glucose (mg/dL) 156 H 164 H 103 Random Glucose Calcium Total Bilirubin AST ALT Alkaline Phosphatase Total Protein Albumin Globulin Albumin/Globulin Ratio 02/26/18 02/26/18 02/26/18 11:20 13:23 13:23 WBC 7.2 RBC 2.77 L Hgb 8.4 L Hct 24.8 L MCV 89.6 MCH 30.5 MCHC 34.1 RDW 14.0 Plt Count 250 MPV 8.5 Sodium 138 Potassium 5.7 H Chloride 95 L Carbon Dioxide 24 Anion Gap 25 H BUN 67 H Creatinine 10.8 H* Est GFR ( Amer) 4 Est GFR (Non-Af Amer) 4 POC Glucose (mg/dL) 305 H Random Glucose 268 H Calcium 9.4 Total Bilirubin 0.4 AST 13 L D ALT 18 Alkaline Phosphatase 49 Total Protein 7.1 Albumin 4.1 Globulin 3.0 Albumin/Globulin Ratio 1.4 02/26/18 02/26/18 16:59 17:06 WBC RBC Hgb Hct MCV MCH MCHC RDW Plt Count MPV Sodium Potassium 5.1 Chloride Carbon Dioxide Anion Gap BUN Creatinine Est GFR ( Amer) Est GFR (Non-Af Amer) POC Glucose (mg/dL) 213 H Random Glucose Calcium Total Bilirubin AST ALT Alkaline Phosphatase Total Protein Albumin Globulin Albumin/Globulin Ratio
--- NOTE | 2018-02-27 08:26 | CON ---
DATE: 02/26/2018 RENAL CONSULTATION LOCATION: The patient is located in room 662, bed A. REQUESTED BY: Rakan Wells MD REASON FOR CONSULTATION AND FOLLOWUP: CKD 5, hyperkalemia, anemia, metabolic acidosis. HISTORY OF PRESENT ILLNESS: Mrs. Wells is a 58-year-old middle-aged female with a past medical history significant for longstanding hypertension, diabetes, diabetic retinopathy, CKD 5, CHF, anemia, secondary hyperparathyroidism, hyperkalemia, metabolic acidosis, status post left upper extremity AV fistula placement about a year ago, refusing hemodialysis for the last 6 months, who was admitted with the chief complaints of mid sternal discomfort associated with nausea and vomiting x1. The patient felt better after vomiting and denies any shortness of breath and denies any edema of the legs. As per the patient, the pain was more like gas like and relieved the pain with vomiting. No radiation of the pain. The pain lasted for about 5 to 6 hours until she vomited. The patient is not in acute distress at this time. The patient is still refusing dialysis at this time. PAST MEDICAL HISTORY: Significant for longstanding hypertension, diabetes, diabetic retinopathy, CKD 5, metabolic acidosis, anemia, secondary hyperparathyroidism, and diabetic retinopathy. PAST SURGICAL HISTORY: Status post left upper extremity AV fistula, status post cataract surgery. ALLERGIES: NO KNOWN DRUG ALLERGIES. SOCIAL HISTORY: No smoking. No alcohol. No drugs. PERSONAL HISTORY: She is . She has a very supportive family. CURRENT MEDICATIONS: Include as follows; hydralazine 50 mg p.o. every 6 hours, aspirin 325 mg daily, Berocca 1 tablet daily, Colace 100 mg p.o. t.i.d., Coreg 25 mg p.o. b.i.d., Crestor 10 mg at bedtime, Feosol 325 mg t.i.d., Imdur 60 mg daily, potassium 50 mg p.o. daily, Lantus 25 units subcu b.i.d., amlodipine 10 mg daily, PhosLo 667 mg two tablets p.o. t.i.d., and Rocaltrol 0.25 mcg p.o. daily, Aranesp 40 mcg subcu every 2 weeks at home. REVIEW OF THE SYSTEMS: Significant for chest discomfort and nausea, vomiting x1. All other review of systems are reviewed and are negative. PHYSICAL EXAMINATION: VITAL SIGNS: As follows, blood pressure 184/75, pulse 58, respirations 20, temperature 98.2, saturation 96%. Height 4 feet 8 inches and weight is 130 pounds, and blood pressure earlier this morning 220/77. GENERAL: Mrs. Wells is a 58 years old middle-aged female, moderately built, moderately nourished, not in acute distress. HEENT: Pupils normal, reactive to light and accommodation. Conjunctivae slightly pale. Sclerae anicteric. Tongue is moist and trachea is midline. LUNGS: Symmetric on both sides. Bilateral breath sounds present. Clear to auscultation. CVS: [place] at the fifth intercostal space and midclavicular area. S1 and S2 audible. No murmur. No gallop. ABDOMEN: Normal in appearance. Soft, tympanic. No guarding. No rigidity. No hepatosplenomegaly. 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 Nonfocal neuro examination. Cranial nerves II through XII grossly intact. Sensory and motor system is within normal limits. EXTREMITIES: No cyanosis, no clubbing, no edema. The patient has left upper extremity AV fistula with a good bruit. LABORATORY DATA: Include as follows: As of 02/24/2018, WBC 7.4, hemoglobin 7.9, hematocrit is 22.8, platelets 207. As of 02/26/2018, WBC 7.2, hemoglobin 8.4, hematocrit is 24.8, platelets 250. The other laboratory data as of 02/26/2018, sodium 138, potassium 5.7, chloride 95, CO2 24, BUN 67, creatinine 10.8, glucose 268, calcium 9.4. Total bili 0.4, AST 13, ALT 18, alkaline phosphatase 49, total protein 7.1, albumin is 4.1. The repeat potassium this evening was 5.1. Troponin is 0.012, 0.012, 0.012. Chest x-ray: Mild venous congestion and right hilar prominence, normal heart size. ASSESSMENT: In summary, Mrs. Wells is a 58-year-old female with a history of hypertension, diabetes, diabetic retinopathy, now anemia, hyperkalemia, metabolic acidosis, was admitted with epigastric discomfort and midsternal pain for about 5 to 6 hours with nausea, vomiting x1, relieved after vomiting. Troponin x3 was negative. 1. Chronic kidney disease 5 secondary to diabetic nephropathy. 2. Uncontrolled hypertension. 3. Hyperkalemia secondary to renal failure, cannot rule out type 4 renal tubular acidosis. 4. Anemia secondary to renal failure. 5. Uncontrolled hypertension. 6. Diabetes. 7. Secondary hyperparathyroidism. PLAN: Continue Kayexalate 15 gm daily and continue low-sodium, low-potassium diet, and also we will check PTH intact level, phosphorus level, and also we will check hepatitis B surface antigen and surface antibody, hep C antibody. Agree to increase the hydralazine to 50 mg (08:54) every 6 hours and titrate as needed. Discussed with the patient's son again on the phone, and now the patient is willing for dialysis next week. She has a family gathering this week, and she wants to be started on next week for renal replacement therapy. We will continue to monitor and repeat her BMP also in a.m. We will add Procrit 10,000 units three times a week. Thank you for allowing me to participate in your patient's care. Chrissie Moore MD
[2018-02-27 08:40] LABS: IRON 57 ug/dL (37-170)
[2018-02-27 08:48] LABS: % IRON SATURATION 23 (20-55); TOTAL IRON BINDING CAPACITY 249 ug/dL (250-450)
[2018-02-27 08:56] VITALS: TEMP 98
[2018-02-27] MEDS: (Lantus) Insulin Glargine, Recombinant SC SCH (09:14)
[2018-02-27 09:15] LABS: HEPATITIS B SURFACE AG Negative (NEGATIVE)
[2018-02-27 09:19] LABS: FERRITIN 83.9 ng/mL
[2018-02-27 09:21] LABS: HEPATITIS A IGM NEGATIVE (NEGATIVE); HEPATITIS B CORE AB NEGATIVE (NEGATIVE)
[2018-02-27 09:32] LABS: HEPATITIS C ANTIBODY NEGATIVE (NEGATIVE)
[2018-02-27] MEDS ORDERED: EPOETIN ALFA 10,000 UNIT/ML ML SC ONE (10:00)
[2018-02-27] MEDS ORDERED: Sod Polystyrene Sulf 15 gm/60 ml Susp PO SCH (10:00)
--- NOTE | 2018-02-27 10:01 | CP.PCM.PN ---
Subjective - Date & Time of Evaluation Date of Evaluation: 02/27/18 Time of Evaluation: 09:58 - Subjective Subjective: COVERING DR Belinda OCONNOR PT ALERT, NO SOB. ROS; OTHERWISE NEG. Objective - Vital Signs/Intake and Output Vital Signs (last 24 hours): Temp Pulse Resp BP Pulse Ox 98 F 57 L 20 196/68 H 99 02/27/18 08:55 02/27/18 08:55 02/27/18 08:55 02/27/18 09:39 02/27/18 08:55 Intake and Output: 02/27/18 02/27/18 06:59 18:59 Intake Total 250 Balance 250 - Medications Medications: Current Medications Amlodipine Besylate (Norvasc) 10 mg PO DAILY [facility] Last Admin: 02/27/18 09:39 Dose: 10 mg Aspirin (Aspirin) 325 mg PO DAILY [facility] Last Admin: 02/27/18 09:39 Dose: 325 mg Calcitriol (Rocaltrol) 0.25 mcg PO DAILY [facility] Last Admin: 02/27/18 09:39 Dose: 0.25 mcg Calcium Acetate (Phoslo) 1,334 mg PO TID [facility] Last Admin: 02/27/18 09:39 Dose: 1,334 mg Carvedilol (Coreg) 25 mg PO BID [facility] Last Admin: 02/27/18 09:39 Dose: 25 mg Docusate Sodium (Colace) 100 mg PO TID [facility] Last Admin: 02/27/18 09:39 Dose: 100 mg Epoetin Wild (Procrit) 10,000 unit SC ONCE ONE Stop: 02/27/18 10:01 Last Admin: 02/27/18 09:39 Dose: 10,000 unit Ferrous Sulfate (Feosol) 325 mg PO TID [facility] Last Admin: 02/27/18 09:39 Dose: 325 mg Furosemide (Lasix) 40 mg PO BID [facility] Last Admin: 02/27/18 09:39 Dose: 40 mg Home Med (Darbepoetin Wild [Aranesp (Renal)]) 40 mcg SC Q2W [facility] Hydralazine HCl (Apresoline) 50 mg PO Q6H PRN PRN Reason: FOR SBP > 180 Last Admin: 02/27/18 04:29 Dose: 50 mg Insulin Glargine (Lantus) 25 unit SC BID [facility] Last Admin: 02/27/18 09:14 Dose: Not Given Isosorbide Mononitrate (Imdur) 60 mg PO DAILY [facility] Last Admin: 02/27/18 09:39 Dose: 60 mg Rosuvastatin Calcium (Crestor) 10 mg PO HS [facility] Last Admin: 02/26/18 22:36 Dose: 10 mg Sodium Polystyrene Sulfonate (Kayexalate Susp) 15 gm PO DAILY [facility] Last Admin: 02/27/18 09:39 Dose: 15 gm Vitamin B Complex/Folic Acid (Berroca) 1 tab PO DAILY [facility] Last Admin: 02/27/18 09:39 Dose: 1 tab - Labs Labs: 02/26/18 13:23 02/27/18 07:00 PT 11.7 SECONDS (9.7-12.2) 02/24/18 11:12 INR 1.1 02/24/18 11:12 APTT 34 SECONDS (21-34) 02/24/18 11:12 - Constitutional Appears: No Acute Distress, Chronically Ill - Head Exam Head Exam: ATRAUMATIC, NORMOCEPHALIC - Eye Exam Eye Exam: EOMI, Normal appearance - ENT Exam ENT Exam: Mucous Membranes Moist - Neck Exam Neck Exam: Normal Inspection - Respiratory Exam Respiratory Exam: absent: Wheezes, Respiratory Distress - Cardiovascular Exam Cardiovascular Exam: RRR, +S1, +S2 - GI/Abdominal Exam GI & Abdominal Exam: Soft. absent: Tenderness - Rectal Exam Rectal Exam: Deferred - Extremities Exam Extremities Exam: absent: Calf Tenderness, Pedal Edema - Back Exam Back Exam: absent: CVA tenderness (L), CVA tenderness (R) - Neurological Exam Neurological Exam: Alert, Awake, CN II-XII Intact - Psychiatric Exam Psychiatric exam: Normal Mood - Skin Skin Exam: absent: Rash Assessment and Plan (1) Diabetes Status: Acute (2) End stage kidney disease Status: Acute (3) Chest pain Status: Acute (4) HTN (hypertension) Status: Acute - Assessment and Plan (Free Text) Assessment: RESP STATUS COMFORTABLE AT REST. CONT PULM TOILET., ADEQ OXYGENATION., CXR REVIEWED., FOR POSS HD PER RENAL. BP CONTROL. PROG POOR. DISCUSSED WITH STAFF.
--- NOTE | 2018-02-27 10:24 | CP.PCM.PN ---
Subjective - Date & Time of Evaluation Date of Evaluation: 02/27/18 Time of Evaluation: 10:24 - Subjective Subjective: pt is seen and examined, follow up consult is dictated #[id number] Objective - Vital Signs/Intake and Output Vital Signs (last 24 hours): Temp Pulse Resp BP Pulse Ox 98 F 57 L 20 196/68 H 99 02/27/18 08:55 02/27/18 08:55 02/27/18 08:55 02/27/18 09:39 02/27/18 08:55 Intake and Output: 02/27/18 02/27/18 06:59 18:59 Intake Total 250 Balance 250 - Medications Medications: Current Medications Amlodipine Besylate (Norvasc) 10 mg PO DAILY [facility] Last Admin: 02/27/18 09:39 Dose: 10 mg Aspirin (Aspirin) 325 mg PO DAILY [facility] Last Admin: 02/27/18 09:39 Dose: 325 mg Calcitriol (Rocaltrol) 0.25 mcg PO DAILY [facility] Last Admin: 02/27/18 09:39 Dose: 0.25 mcg Calcium Acetate (Phoslo) 1,334 mg PO TID [facility] Last Admin: 02/27/18 09:39 Dose: 1,334 mg Carvedilol (Coreg) 25 mg PO BID [facility] Last Admin: 02/27/18 09:39 Dose: 25 mg Docusate Sodium (Colace) 100 mg PO TID [facility] Last Admin: 02/27/18 09:39 Dose: 100 mg Ferrous Sulfate (Feosol) 325 mg PO TID [facility] Last Admin: 02/27/18 09:39 Dose: 325 mg Furosemide (Lasix) 40 mg PO BID [facility] Last Admin: 02/27/18 09:39 Dose: 40 mg Home Med (Darbepoetin Wild [Aranesp (Renal)]) 40 mcg SC Q2W [facility] Hydralazine HCl (Apresoline) 50 mg PO Q6H PRN PRN Reason: FOR SBP > 180 Last Admin: 02/27/18 04:29 Dose: 50 mg Insulin Glargine (Lantus) 25 unit SC BID [facility] Last Admin: 02/27/18 09:14 Dose: Not Given Isosorbide Mononitrate (Imdur) 60 mg PO DAILY [facility] Last Admin: 02/27/18 09:39 Dose: 60 mg Rosuvastatin Calcium (Crestor) 10 mg PO HS [facility] Last Admin: 02/26/18 22:36 Dose: 10 mg Sodium Polystyrene Sulfonate (Kayexalate Susp) 15 gm PO DAILY [facility] Last Admin: 02/27/18 09:39 Dose: 15 gm Vitamin B Complex/Folic Acid (Berroca) 1 tab PO DAILY [facility] Last Admin: 02/27/18 09:39 Dose: 1 tab - Labs Labs: 02/26/18 13:23 02/27/18 07:00 PT 11.7 SECONDS (9.7-12.2) 02/24/18 11:12 INR 1.1 02/24/18 11:12 APTT 34 SECONDS (21-34) 02/24/18 11:12
[2018-02-27 10:43] VITALS: PULSE 54; O2SAT 98
--- NOTE | 2018-02-27 11:42 | CARD ---
APPROVED REPORT Date of service: 02/24/2018 EKG Measurement Heart [id number] <Conclusion> Normal sinus rhythm Normal ECG
[2018-02-27 13:52] VITALS: BP 199/70
--- NOTE | 2018-02-27 16:51 | CP.PCM.PN ---
Subjective - Date & Time of Evaluation Date of Evaluation: 02/27/18 Time of Evaluation: 11:00 - Subjective Subjective: alert, awake, denies nausea or vomiting, NAD. Objective - Vital Signs/Intake and Output Vital Signs (last 24 hours): Temp Pulse Resp BP Pulse Ox 98 F 54 L 20 199/70 H 98 02/27/18 08:55 02/27/18 13:51 02/27/18 10:41 02/27/18 13:51 02/27/18 10:41 Intake and Output: 02/27/18 02/27/18 06:59 18:59 Intake Total 250 Balance 250 - Labs Labs: 02/26/18 13:23 02/27/18 07:00 PT 11.7 SECONDS (9.7-12.2) 02/24/18 11:12 INR 1.1 02/24/18 11:12 APTT 34 SECONDS (21-34) 02/24/18 11:12 Assessment and Plan - Assessment and Plan (Free Text) Assessment: 58 year old female admitted with chest pain, hypertension, seen and examined. Alert and oriented x3, no acute complaints. Discussed with DR Banda, plan to discharge home on present meds, patient will be followed up by the nephrologyst for possible dialysis after the family meeting.
--- NOTE | 2018-02-27 17:07 | CARD ---
APPROVED REPORT Date of service: 02/27/2018 EXAM: Two-dimensional and M-mode echocardiogram with Doppler and color Doppler. Other Information Quality : GoodRhythm : INDICATION Chest Pain RISK FACTORS Diabetes 2D DIMENSIONS IVSd1.2 (0.7-1.1cm)LVDd4.8 (3.9-5.9cm) PWd1.0 (0.7-1.1cm)LVDs2.5 (2.5-4.0cm) FS (%) 47.4 %LVEF (%)65.0 (>50%) M-Mode DIMENSIONS RVDd1.94 (2.1-3.2cm)Left Atrium (MM)4.26 (2.5-4.0cm) IVSd1.10 (0.7-1.1cm)Aortic Root2.93 (2.2-3.7cm) LVDd4.81 (4.0-5.6cm)Aortic Cusp Exc.1.89 (1.5-2.0cm) PWd1.02 (0.7-1.1cm)FS (%) 36 % LVDs3.06 (2.0-3.8cm)LVEF (%)66 (>50%) Mitral Valve MV E Vvmafjxf802.2cm/sMV A Ymbvkqfc01.7cm/sE/A ratio1.3 TDI E/Lateral E'0.0E/Medial E'0.0 Tricuspid Valve TR Peak [id number]/sTR Peak Gr.[id number] LEFT VENTRICLE The left ventricle is normal size. There is normal left ventricular wall thickness. The left ventricular function is normal. The left ventricular ejection fraction is within the normal range. There is normal LV segmental wall motion. The left ventricular diastolic function is normal. RIGHT VENTRICLE The right ventricle is normal size. ATRIA The left atrium is borderline dilated. The right atrium size is normal. AORTIC VALVE The aortic valve is normal in structure. MITRAL VALVE Mitral regurgitation is trace to mild. TRICUSPID VALVE There is mild to moderate tricuspid regurgitation. <Conclusion> Normal LV systolic function. Borderline dilated LA. Trace to mild MR. Mild to moderate TR.
--- NOTE | 2018-02-28 03:50 | PN ---
DATE: 02/27/2018 FOLLOWUP RENAL CONSULTATION LOCATION: The patient is located in room 662, bed A. REQUESTED BY: Rakan Wells MD REASON FOR FOLLOWUP: CKD V, uncontrolled hypertension, hyperkalemia. HISTORY OF PRESENT ILLNESS: Mrs. Wells is a 58-year-old female with a past medical history significant for longstanding hypertension, diabetes, diabetic retinopathy, CKD 5, anemia, secondary hyperparathyroidism, hyperkalemia, metabolic acidosis who was admitted with chief complaints of chest discomfort associated with nausea, vomiting, and pain relieved after vomiting x1. The patient was also found to have uncontrolled hypertension. Blood pressure medication is titrated. The patient is not in acute distress. Denies any headache, dizziness. Denies any chest pain or palpitation. Denies any fever or cough. No abdominal pain. No nausea, vomiting, diarrhea. PHYSICAL EXAMINATION: VITAL SIGNS: This morning, blood pressure 196/68, pulse 54, respirations 20, temperature is 98, saturation 98%. Height 4 feet 8 inches, weight is 120 pounds. GENERAL: Mrs. Wells is a 58-year-old middle-aged female, moderately built, moderately nourished, not in acute distress. HEENT: Pupils normal and reactive to light and accommodation. Conjunctivae pink. Sclerae anicteric. Tongue is moist, and trachea is midline. LUNGS: Symmetric on both sides. Bilateral breath sounds present. Clear to auscultation. CVS: [place] at the fifth intercostal space midclavicular line. S1, S2 audible. No murmur. No gallop. ABDOMEN: Normal in appearance. Soft, tympanic. No guarding. No rigidity. No hepatosplenomegaly. 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 Nonfocal neuro examination. Cranial nerves II through XII grossly intact. Sensory and motor system is within normal limits. EXTREMITIES: No cyanosis, no clubbing, no edema. LABORATORY DATA: Include as follows: Echocardiogram report as of 02/27/2018, normal LV systolic function, borderline dilated LA, trace to mild MR, mild to moderate TR, ejection fraction is about 66%. EKG as of 06/27/2018, heart rate is 63, MO interval 150, QRS 82, QT is 140, QTC of 460, normal sinus rhythm, normal EKG. Chest x-ray as of 02/24/2018, impression, mild venous congestion, right hilar prominence, top normal heart size. Other laboratory data as of 02/27/2018: Sodium 140, potassium 4.8, chloride 99, CO2 of 24, BUN 71, creatinine 11.7, glucose 166, calcium is 10, phosphorus 7.6. Iron 57, TIBC 249, saturation 23, ferritin 83.9. Hepatitis C IgM antibody is negative. Hepatitis B surface antigen negative. Hepatitis B core antibody IgM is negative. Hepatitis C antibody is negative. IMPRESSION: In summary, Mrs. Wells is a 58-year-old middle-aged female with a history of hypertension, diabetes, chronic kidney disease V who was admitted with midsternal discomfort associated with nausea and vomiting x1, relieved after vomiting and uncontrolled hypertension, hyperkalemia. 1. Chronic kidney disease V, end-stage renal disease, refusing hemodialysis at this time, want to wait until next week as she has a travel plan to [place]. As per the patient's son, she would like to be started on hemodialysis next week, Monday or Monday. 2. Uncontrolled hypertension. Continue her current medication, hydralazine 50 mg every 8 hours and Coreg 25 mg b.i.d. and also Norvasc 10 mg. 3. Anemia secondary to renal failure. Continue Epogen three times a week or Aranesp every week to keep hemoglobin between 10 to 11. 4. Status post hyperkalemia, serum potassium is now normal. Continue Kayexalate 15 gm daily. 5. Secondary hyperparathyroidism. 6. Status post metabolic acidosis. Continue sodium bicarbonate and continue calcium acetate 2 tablets p.o. t.i.d. with food. We will continue to monitor as an outpatient. Advised the patient's son to take her to the hospital if she becomes short of breath, and if she does not feel well when she travels out of state to the nearest hospital. Thank you for allowing me to participate in your patient's care. Discussed with the patient's son, Rachid Wells. Chrissie Moore MD
[2018-03-10] MEDS ORDERED: DARBEPOETIN ALFA 40 MCG SC SCH (10:00)
== END 2018-02-27 14:22 | disposition home or self-care (01) ==
LOC: C.ER 10:33 → C.9E 11:53 → C.6T 13:29
PROVIDERS: ADMIT Internal Medicine Nephrology; ATTEND Internal Medicine Nephrology
DX: I13.2 Hypertensive heart and chronic kidney disease with heart failure and with stage 5 chronic kidney disease, or end stage renal disease (principal); N17.9 Acute kidney failure, unspecified; E11.22 Type 2 diabetes mellitus with diabetic chronic kidney disease; I50.30 Unspecified diastolic (congestive) heart failure; N18.6 End stage renal disease; Z79.4 Long term (current) use of insulin; D63.1 Anemia in chronic kidney disease; Z91.15 Patient's noncompliance with renal dialysis; E87.5 Hyperkalemia; E87.2 Acidosis; N25.81 Secondary hyperparathyroidism of renal origin; E78.00 Pure hypercholesterolemia, unspecified; E11.21 Type 2 diabetes mellitus with diabetic nephropathy
CPT/HCPCS: 36415; 71045; 80048; 80053; 80074; 81001; 82728; 82948; 83540; 83550; 83880; 83970; 84100; 84132; 84484; 85025; 85027; 85610; 85730; 86317; 93005; 93306; 96374; 99285; G0378; J1940; Q4081

== ENCOUNTER 2018-03-06 08:21 | Inpatient (IN) | payer OTHER ==
[2018-03-06 08:21] VITALS: BMI 28.6
[2018-03-06 09:57] LABS: BASO # 0.1 K/uL (0.0-0.2); BASO % 0.9 % (0.0-2.0); EOS # 0.2 K/uL (0.0-0.7); EOS % 2.6 % (0.0-4.0); HEMOGLOBIN 8.2 g/dL (11.0-16.0); LYMPH # 1.1 K/uL (1.0-4.3); LYMPH % 14.9 % (20.0-40.0); MEAN CORPUSCULAR HEMOGLOBIN 31.3 pg (27.0-31.0); MEAN CORPUSCULAR HGB CONC 34.1 g/dL (33.0-37.0); MEAN PLATELET VOLUME 8.3 fL (7.2-11.7); MONO # 0.8 K/uL (0.0-0.8); MONO % 11.4 % (0.0-10.0); NEUT % 70.2 % (50.0-75.0); RBC 2.62 Mil/uL (3.80-5.20); RED CELL DISTRIBUTION WIDTH 15.7 % (11.5-14.5); WHITE BLOOD COUNT 7.1 K/uL (4.8-10.8)
[2018-03-06 09:58] LABS: MEAN CELL VOLUME 91.8 fL (81.0-99.0)
[2018-03-06 10:14] LABS: ALB/GLOB RATIO 1.3 (1.0-2.1); ALBUMIN 4.2 g/dL (3.5-5.0); CALCIUM 10.9 mg/dl (8.6-10.4)
[2018-03-06] MEDS ORDERED: Paricalcitol 2 mcg/ml Inj IV ONE ×2 (10:53→16:15)
[2018-03-06] MEDS ORDERED: Sod Polystyrene Sulf 15 gm/60 ml Susp PO ONE (10:56)
--- NOTE | 2018-03-06 10:56 | C.PDOC ---
History Of Present Illness 58-year-old female presents to the emergency department with complaints of constipation x3 days, associated with nausea. Patient has a history of renal failure, which she says has been worsening (on outpatient labs). Patient already has AV fistula, but has been refusing dialysis. Now she states she would like to start it. Patient denies chest pain, SOB, fever at this time. Viner Operator: Flor Nichols. Time Seen by Provider: 03/06/18 08:49 Chief Complaint (Nursing): Abdominal Pain History Per: Patient History/Exam Limitations: no limitations Associated Symptoms: Nausea, Constipation Past Medical History Reviewed: Historical Data, Nursing Documentation, Vital Signs Vital Signs: Last Vital Signs Temp 97.7 F 03/07/18 07:44 Pulse 60 03/07/18 08:13 Resp 18 03/07/18 07:44 BP 142/65 03/07/18 07:44 Pulse Ox 99 03/07/18 15:05 - Medical History PMH: Anemia, HTN, Hypercholesterolemia, Kidney Stones (NO SURGERY), Chronic Kidney Disease (NO DIALYSIS YET) Family History: States: No Known Family Hx - Social History Hx Alcohol Use: No Hx Substance Use: No - Immunization History Hx Tetanus Toxoid Vaccination: No Hx Influenza Vaccination: Yes (2017) Hx Pneumococcal Vaccination: No Review Of Systems Constitutional: Negative for: Fever Cardiovascular: Negative for: Chest Pain, Palpitations Respiratory: Negative for: Shortness of Breath Gastrointestinal: Negative for: Nausea, Vomiting, Abdominal Pain Musculoskeletal: Negative for: Back Pain Skin: Negative for: Rash Neurological: Negative for: Weakness, Numbness, Headache, Dizziness Physical Exam - Physical Exam Appears: Well, Non-toxic, No Acute Distress Skin: Normal Color, Warm, Dry, No Rash Head: Normacephalic Eye(s): bilateral: Normal Inspection Oral Mucosa: Moist Cardiovascular: Rhythm Regular Respiratory: Normal Breath Sounds, No Rales, No Rhonchi, No Wheezing Gastrointestinal/Abdominal: Normal Exam, Bowel Sounds, Soft, No Tenderness Back: Normal Inspection, No CVA Tenderness Extremity: Normal ROM, No Deformity, No Swelling, Other (Left AV fistula with palpable thrill) Neurological/Psych: Oriented x3 ED Course And Treatment - Laboratory Results Result Diagrams: 03/07/18 06:25 03/07/18 06:25 O2 Sat by Pulse Oximetry: 99 (RA) Pulse Ox Interpretation: Normal Progress Note: Blood work, EKG, onstructive series ordered and reviewed. Patient mildly hyperkalemia + constipated - PO Kayexalate given. - Physician Consult Information Physician Contacted: Yanet Wells Outcome Of Conversation: Discussed patient with Dr. Belinda Wells, agrees with admission for renal failure, needd for hemodilysis. Patient's compensation coordinator Dr. Mabry contacted and saw patient in ED, will start dialysis. Disposition - Disposition Disposition: HOSPITALIZED Disposition Time: 10:28 Condition: STABLE - Clinical Impression Clinical Impression: Renal failure, Hyperkalemia, ESRD needing dialysis - Scribe Statement The provider has reviewed the documentation as recorded by the Scribe (Huong Dudley) All medical record entries made by the Scribe were at my direction and personally dictated by me. I have reviewed the chart and agree that the record accurately reflects my personal performance of the history, physical exam, medical decision making, and the department course for this patient. I have also personally directed, reviewed, and agree with the discharge instructions and disposition. Decision To Admit - Pt Status Changed To: Hospital Disposition Of: Inpatient - Admit Certification Admit to Inpatient:: After my assessment, the patient will require hospitalization for at least two midnights. This is because of the severity of symptoms shown, intensity of services needed, and/or the medical risk in this patient being treated as an outpatient. - InPatient: Physician Admission Certification:: see notes - . Bed Request Type: Telemetry Admitting Physician: Yanet Wells Patient Diagnosis: Renal failure, Hyperkalemia, ESRD needing dialysis
[2018-03-06] MEDS ORDERED: Sod Polystyrene Sulf 15 gm/60 ml Susp ONE ×2 (11:03→11:04)
[2018-03-06] MEDS ORDERED: Lidocaine 1% Inj (20ml) INJ ONE (11:24)
--- NOTE | 2018-03-06 11:32 | RAD ---
Date of service: 03/06/2018 PROCEDURE: Radiographs of the chest and abdomen (obstructive series) HISTORY: Abd Pain, CONSTIPATION COMPARISON: No prior. TECHNIQUE: AP radiograph of the chest, with upright and supine radiographs of the abdomen. FINDINGS: CHEST: Lungs: Clear. Cardiovascular: Normal size heart. No pulmonary vascular congestion. Pleura: No pleural fluid. No pneumothorax. Other findings: None. ABDOMEN AND PELVIS: Bowel: Moderate Stool retention. No evidence of mechanical obstruction. Free air: None. Bones: Thoraco lumbar spondylosis. Leftward thoracolumbar convexity. Other findings: None. IMPRESSION: No infiltrate. Moderate stool retention. No evidence of mechanical bowel obstruction.
[2018-03-06] MEDS ORDERED: Lidocaine 1% PF (5ml) Amp INJ ONE (12:00)
[2018-03-06 12:51] LABS: HEPATITIS B SURFACE AG Negative (NEGATIVE)
[2018-03-06 12:57] LABS: HEPATITIS A IGM NEGATIVE (NEGATIVE); HEPATITIS B CORE AB NEGATIVE (NEGATIVE)
[2018-03-06 13:08] LABS: HEPATITIS C ANTIBODY NEGATIVE (NEGATIVE)
[2018-03-06] MEDS: (Novolog) Insulin Aspart, Recombinant 100 u/ml 10 ml vial SC SCH ×2 (17:16→21:09)
--- NOTE | 2018-03-06 17:58 | CP.PCM.HP ---
Past Patient History - Past Medical History & Family History Past Medical History?: Yes - Past Social History Smoking Status: Never Smoked - CARDIAC Hx Cardiac Disorders: Yes Hx Hypercholesterolemia: Yes Hx Hypertension: Yes - PULMONARY Hx Respiratory Disorders: No - HEENT Hx HEENT Problems: Yes (DIABETIC RETINOPATHY) - RENAL Hx Chronic Kidney Disease: Yes (NO DIALYSIS YET) Hx Kidney Stones: Yes (NO SURGERY) - ENDOCRINE/METABOLIC Hx Endocrine Disorders: Yes Hx Diabetes Mellitus Type 1: Yes - HEMATOLOGICAL/ONCOLOGICAL Hx Anemia: Yes - MUSCULOSKELETAL/RHEUMATOLOGICAL Hx Falls: No - GASTROINTESTINAL Hx Gastrointestinal Disorders: No - GENITOURINARY/GYNECOLOGICAL Hx Genitourinary Disorders: Yes (RENAL FAILURE) - PSYCHIATRIC Hx Substance Use: No - SURGICAL HISTORY Hx Surgeries: Yes (left arm fistula) Hx Tubal Ligation: Yes - ANESTHESIA Hx Anesthesia: Yes Hx Anesthesia Reactions: Yes (WOKE UP DURING PROCEDURE) Hx Malignant Hyperthermia: No Meds Allergies/Adverse Reactions: Allergies Allergy/AdvReac Type Severity Reaction Status Date / Time No Known Allergies Allergy Verified 03/06/18 08:44 Physical Exam - Constitutional Appears: Well - Head Exam Head Exam: ATRAUMATIC, NORMAL INSPECTION, NORMOCEPHALIC - Eye Exam Eye Exam: EOMI, Normal appearance, PERRL Pupil Exam: NORMAL ACCOMODATION, PERRL - ENT Exam ENT Exam: Mucous Membranes Moist, Normal Exam - Neck Exam Neck exam: Positive for: Normal Inspection - Respiratory Exam Respiratory Exam: Decreased Breath Sounds - Cardiovascular Exam Cardiovascular Exam: REGULAR RHYTHM, +S1, +S2 - GI/Abdominal Exam GI & Abdominal Exam: Diminished Bowel Sounds, Soft - Rectal Exam Rectal Exam: Deferred Results - Vital Signs Recent Vital Signs: Last Vital Signs Temp 97.9 F 03/06/18 17:20 Pulse 64 03/06/18 17:20 Resp 20 03/06/18 17:20 BP 201/72 H 03/06/18 17:22 Pulse Ox 98 03/06/18 17:20 - Labs Result Diagrams: 03/06/18 09:54 03/06/18 09:54 Labs: Laboratory Results - last 24 hr 03/06/18 03/06/18 03/06/18 09:54 09:54 11:55 WBC 7.1 RBC 2.62 L Hgb 8.2 L Hct 24.1 L MCV 91.8 D MCH 31.3 H MCHC 34.1 RDW 15.7 H Plt Count 229 MPV 8.3 Neut % (Auto) 70.2 Lymph % (Auto) 14.9 L [place] % (Auto) 11.4 H Eos % (Auto) 2.6 Baso % (Auto) 0.9 Neut # (Auto) 5.0 Lymph # (Auto) 1.1 [place] # (Auto) 0.8 Eos # (Auto) 0.2 Baso # (Auto) 0.1 Sodium 143 Potassium 5.3 H Chloride 97 L Carbon Dioxide 26 Anion Gap 25 H BUN 74 H Creatinine 12.1 H* Est GFR ( Amer) 4 Est GFR (Non-Af Amer) 3 POC Glucose (mg/dL) Random Glucose 176 H Calcium 10.9 H Total Bilirubin 0.4 AST 18 ALT 24 Alkaline Phosphatase 59 Total Protein 7.4 Albumin 4.2 Globulin 3.2 Albumin/Globulin Ratio 1.3 Lipase 236 Hepatitis A IgM Ab Negative Hep Bs Antigen Negative Hep B Core IgM Ab Negative Hepatitis C Antibody Negative 03/06/18 16:16 WBC RBC Hgb Hct MCV MCH MCHC RDW Plt Count MPV Neut % (Auto) Lymph % (Auto) [place] % (Auto) Eos % (Auto) Baso % (Auto) Neut # (Auto) Lymph # (Auto) [place] # (Auto) Eos # (Auto) Baso # (Auto) Sodium Potassium Chloride Carbon Dioxide Anion Gap BUN Creatinine Est GFR ( Amer) Est GFR (Non-Af Amer) POC Glucose (mg/dL) 125 H Random Glucose Calcium Total Bilirubin AST ALT Alkaline Phosphatase Total Protein Albumin Globulin Albumin/Globulin Ratio Lipase Hepatitis A IgM Ab Hep Bs Antigen Hep B Core IgM Ab Hepatitis C Antibody
[2018-03-06] MEDS ORDERED: FERROUS SULFATE PO SCH (18:00)
[2018-03-06] MEDS ORDERED: (Lantus) Insulin Glargine, Recombinant SC SCH (18:00)
--- NOTE | 2018-03-06 20:37 | CARD ---
APPROVED REPORT Date of service: 03/06/2018 EKG Measurement Heart [id number] <Conclusion> Normal sinus rhythm Normal ECG
[2018-03-06] MEDS: (Lantus) Insulin Glargine, Recombinant SC SCH (21:17)
--- NOTE | 2018-03-06 22:56 | CP.PCM.CON ---
History of Present Illness - History of Present Illness History of Present Illness: pt is seen and examined, full consult is dictated #[id number] Past Patient History - Past Medical History & Family History Past Medical History?: Yes - Past Social History Smoking Status: Never Smoked - CARDIAC Hx Cardiac Disorders: Yes Hx Hypercholesterolemia: Yes Hx Hypertension: Yes - PULMONARY Hx Respiratory Disorders: No - HEENT Hx HEENT Problems: Yes (DIABETIC RETINOPATHY) - RENAL Hx Chronic Kidney Disease: Yes (NO DIALYSIS YET) Hx Kidney Stones: Yes (NO SURGERY) - ENDOCRINE/METABOLIC Hx Endocrine Disorders: Yes Hx Diabetes Mellitus Type 1: Yes - HEMATOLOGICAL/ONCOLOGICAL Hx Anemia: Yes - MUSCULOSKELETAL/RHEUMATOLOGICAL Hx Falls: No - GASTROINTESTINAL Hx Gastrointestinal Disorders: No - GENITOURINARY/GYNECOLOGICAL Hx Genitourinary Disorders: Yes (RENAL FAILURE) - PSYCHIATRIC Hx Substance Use: No - SURGICAL HISTORY Hx Surgeries: Yes (left arm fistula) Hx Tubal Ligation: Yes - ANESTHESIA Hx Anesthesia: Yes Hx Anesthesia Reactions: Yes (WOKE UP DURING PROCEDURE) Hx Malignant Hyperthermia: No Meds Allergies/Adverse Reactions: Allergies Allergy/AdvReac Type Severity Reaction Status Date / Time No Known Allergies Allergy Verified 03/06/18 08:44 - Medications Medications: Current Medications Amlodipine Besylate (Norvasc) 10 mg PO DAILY [facility] Last Admin: 03/06/18 17:22 Dose: 10 mg Aspirin (Ecotrin) 81 mg PO DAILY [facility] Calcitriol (Rocaltrol) 0.25 mcg PO DAILY [facility] Calcium Acetate (Phoslo) 667 mg PO TIDCC [facility] Last Admin: 03/06/18 17:22 Dose: 667 mg Carvedilol (Coreg) 25 mg PO Q12 [facility] Last Admin: 03/06/18 21:00 Dose: 25 mg Docusate Sodium (Colace) 100 mg PO TID [facility] Last Admin: 03/06/18 17:22 Dose: 100 mg Epoetin Wild (Procrit) 20,000 unit IV TTS [facility] Ferrous Sulfate (Feosol) 325 mg PO TID [facility] Last Admin: 03/06/18 17:22 Dose: 325 mg Furosemide (Lasix) 40 mg PO BID [facility] Last Admin: 03/06/18 17:22 Dose: 40 mg Heparin Sodium (Porcine) (Heparin) 5,000 units SC Q12 [facility] Last Admin: 03/06/18 21:17 Dose: 5,000 units Hydralazine HCl (Apresoline) 10 mg PO Q8 [facility] Last Admin: 03/06/18 21:00 Dose: 10 mg Insulin Aspart (Novolog) 0 unit SC [facility] PRN Reason: Protocol Last Admin: 03/06/18 21:09 Dose: Not Given Insulin Glargine (Lantus) 20 unit SC [facility] Last Admin: 03/06/18 21:17 Dose: 20 units Isosorbide Mononitrate (Imdur) 60 mg PO DAILY [facility] Last Admin: 03/06/18 17:22 Dose: 60 mg Pneumococcal Polyvalent Vaccine (Pneumovax 23 Vaccine) 0.5 ml IM .ONCE ONE Stop: 03/07/18 10:01 Rosuvastatin Calcium (Crestor) 10 mg PO [facility] Last Admin: 03/06/18 21:17 Dose: 10 mg Results - Vital Signs Recent Vital Signs: Last Vital Signs Temp 97.9 F 03/06/18 17:20 Pulse 70 03/06/18 22:04 Resp 20 03/06/18 17:20 BP 176/71 H 03/06/18 22:04 Pulse Ox 98 03/06/18 17:20 - Labs Result Diagrams: 03/06/18 09:54 03/06/18 09:54 Labs: Laboratory Results - last 24 hr 03/06/18 03/06/18 03/06/18 09:54 09:54 11:55 WBC 7.1 RBC 2.62 L Hgb 8.2 L Hct 24.1 L MCV 91.8 D MCH 31.3 H MCHC 34.1 RDW 15.7 H Plt Count 229 MPV 8.3 Neut % (Auto) 70.2 Lymph % (Auto) 14.9 L [place] % (Auto) 11.4 H Eos % (Auto) 2.6 Baso % (Auto) 0.9 Neut # (Auto) 5.0 Lymph # (Auto) 1.1 [place] # (Auto) 0.8 Eos # (Auto) 0.2 Baso # (Auto) 0.1 Sodium 143 Potassium 5.3 H Chloride 97 L Carbon Dioxide 26 Anion Gap 25 H BUN 74 H Creatinine 12.1 H* Est GFR ( Amer) 4 Est GFR (Non-Af Amer) 3 POC Glucose (mg/dL) Random Glucose 176 H Calcium 10.9 H Total Bilirubin 0.4 AST 18 ALT 24 Alkaline Phosphatase 59 Total Protein 7.4 Albumin 4.2 Globulin 3.2 Albumin/Globulin Ratio 1.3 Lipase 236 Hepatitis A IgM Ab Negative Hep Bs Antigen Negative Hep B Core IgM Ab Negative Hepatitis C Antibody Negative 03/06/18 03/06/18 16:16 20:56 WBC RBC Hgb Hct MCV MCH MCHC RDW Plt Count MPV Neut % (Auto) Lymph % (Auto) [place] % (Auto) Eos % (Auto) Baso % (Auto) Neut # (Auto) Lymph # (Auto) [place] # (Auto) Eos # (Auto) Baso # (Auto) Sodium Potassium Chloride Carbon Dioxide Anion Gap BUN Creatinine Est GFR ( Amer) Est GFR (Non-Af Amer) POC Glucose (mg/dL) 125 H 206 H Random Glucose Calcium Total Bilirubin AST ALT Alkaline Phosphatase Total Protein Albumin Globulin Albumin/Globulin Ratio Lipase Hepatitis A IgM Ab Hep Bs Antigen Hep B Core IgM Ab Hepatitis C Antibody
[2018-03-07 06:34] LABS: HEMOGLOBIN 7.7 g/dL (11.0-16.0); MEAN CORPUSCULAR HEMOGLOBIN 30.8 pg (27.0-31.0); MEAN CORPUSCULAR HGB CONC 33.8 g/dL (33.0-37.0); MEAN PLATELET VOLUME 8.3 fL (7.2-11.7); RBC 2.51 Mil/uL (3.80-5.20); RED CELL DISTRIBUTION WIDTH 15.5 % (11.5-14.5); WHITE BLOOD COUNT 5.7 K/uL (4.8-10.8)
--- NOTE | 2018-03-07 07:19 | CP.PCM.PN ---
Subjective - Date & Time of Evaluation Date of Evaluation: 03/07/18 Time of Evaluation: 07:17 - Subjective Subjective: Progress Note for Dr. Wiliam Wells's Service Patient seen and examined at bedside. Per nursing no acute events occurred overnight. Patient tolerating diet without any complaints. Patient denies any fevers, chills nausea, vomiting, chest pain, shortness of breath, fevers, abdominal pain, dysuria, or any other complaints. Objective - Vital Signs/Intake and Output Vital Signs (last 24 hours): Temp Pulse Resp BP Pulse Ox 97.8 F 67 20 165/72 H 97 03/07/18 00:00 03/07/18 00:00 03/07/18 00:00 03/07/18 00:00 03/07/18 00:00 Intake and Output: 03/07/18 03/07/18 06:59 18:59 Intake Total 300 Balance 300 - Medications Medications: Current Medications Amlodipine Besylate (Norvasc) 10 mg PO DAILY [facility] Last Admin: 03/06/18 17:22 Dose: 10 mg Aspirin (Ecotrin) 81 mg PO DAILY [facility] Calcitriol (Rocaltrol) 0.25 mcg PO DAILY [facility] Calcium Acetate (Phoslo) 667 mg PO TIDCC [facility] Last Admin: 03/06/18 17:22 Dose: 667 mg Carvedilol (Coreg) 25 mg PO Q12 [facility] Last Admin: 03/06/18 21:00 Dose: 25 mg Docusate Sodium (Colace) 100 mg PO TID [facility] Last Admin: 03/06/18 17:22 Dose: 100 mg Epoetin Wild (Procrit) 20,000 unit IV TTS [facility] Ferrous Sulfate (Feosol) 325 mg PO TID [facility] Last Admin: 03/06/18 17:22 Dose: 325 mg Furosemide (Lasix) 40 mg PO BID [facility] Last Admin: 03/06/18 17:22 Dose: 40 mg Heparin Sodium (Porcine) (Heparin) 5,000 units SC Q12 [facility] Last Admin: 03/06/18 21:17 Dose: 5,000 units Hydralazine HCl (Apresoline) 10 mg PO Q8 [facility] Last Admin: 03/07/18 06:12 Dose: 10 mg Insulin Aspart (Novolog) 0 unit SC [facility] PRN Reason: Protocol Last Admin: 03/06/18 21:09 Dose: Not Given Insulin Glargine (Lantus) 20 unit SC [facility] Last Admin: 03/06/18 21:17 Dose: 20 units Isosorbide Mononitrate (Imdur) 60 mg PO DAILY [facility] Last Admin: 03/06/18 17:22 Dose: 60 mg Pneumococcal Polyvalent Vaccine (Pneumovax 23 Vaccine) 0.5 ml IM .ONCE ONE Stop: 03/07/18 10:01 Rosuvastatin Calcium (Crestor) 10 mg PO [facility] Last Admin: 03/06/18 21:17 Dose: 10 mg - Labs Labs: 03/07/18 06:25 03/06/18 09:54 - Head Exam Head Exam: ATRAUMATIC, NORMAL INSPECTION, NORMOCEPHALIC - Eye Exam Eye Exam: EOMI, Normal appearance, PERRL Pupil Exam: NORMAL ACCOMODATION, PERRL - ENT Exam ENT Exam: Mucous Membranes Moist, Normal Oropharynx - Respiratory Exam Respiratory Exam: Clear to Ausculation Bilateral, NORMAL BREATHING PATTERN - Cardiovascular Exam Cardiovascular Exam: REGULAR RHYTHM, +S1, +S2 - GI/Abdominal Exam GI & Abdominal Exam: Soft, Normal Bowel Sounds - Extremities Exam Extremities Exam: Full ROM, Normal Inspection. absent: Pedal Edema - Back Exam Back Exam: NORMAL INSPECTION. absent: CVA tenderness (L), CVA tenderness (R), paraspinal tenderness - Neurological Exam Neurological Exam: Alert, Awake, CN II-XII Intact, Oriented x3 - Psychiatric Exam Psychiatric exam: Normal Affect, Normal Mood - Skin Skin Exam: Dry, Intact, Normal Color Assessment and Plan - Assessment and Plan (Free Text) Assessment: 58 year old female with a past medical history of CKD, htn and DM being admitted for renal failure and hyperkalemia. Plan: 1. CKD Hemodialysis started on this admission. -Nephrology consulted. Help appreciated. -Phoslo 67 mg PO TIDCC -Procrit 20,000 unit IV TTS 2.hx of hypertension -Hydralazine 25mg PO Q8 -Carvedilol 25mg PO Q12 -Norvasc 10MG PO DAILY -Imdur 60 MG PO DAILY 3. hx of Diabetes mellitus -Aspirin 81mg PO Daily -Insulin Glargine 20 unit SC -[facility] -Accuchecks 4. hx of hypercholesterolemia -Rosuvastatin Calcium 10mg PO HS 5. Anemia - Will rechek CBC and confirm. -Procrit TTS PPX Heparin Plan discussed with Dr. Wiliam Kline, PGY-2
[2018-03-07 07:33] LABS: ALB/GLOB RATIO 1.2 (1.0-2.1); ALBUMIN 3.6 g/dL (3.5-5.0); CALCIUM 8.6 mg/dl (8.6-10.4)
[2018-03-07] MEDS: (Novolog) Insulin Aspart, Recombinant 100 u/ml 10 ml vial SC SCH ×4 (07:46→22:53)
[2018-03-07] MEDS ORDERED: Pneumococcal 23-Valent Vaccine IM ONE (10:00)
--- NOTE | 2018-03-07 17:47 | CP.PCM.PN ---
Subjective - Date & Time of Evaluation Date of Evaluation: 03/07/18 Time of Evaluation: 08:20 - Subjective Subjective: clinically same Objective - Vital Signs/Intake and Output Vital Signs (last 24 hours): Temp Pulse Resp BP Pulse Ox 97.7 F 59 L 16 188/73 H 98 03/07/18 15:30 03/07/18 16:27 03/07/18 16:27 03/07/18 16:27 03/07/18 16:27 Intake and Output: 03/07/18 03/07/18 06:59 18:59 Intake Total 300 Balance 300 - Medications Medications: Current Medications Amlodipine Besylate (Norvasc) 10 mg PO DAILY [facility] Last Admin: 03/07/18 16:04 Dose: 10 mg Aspirin (Ecotrin) 81 mg PO DAILY [facility] Last Admin: 03/07/18 09:34 Dose: 81 mg Calcitriol (Rocaltrol) 0.25 mcg PO DAILY [facility] Last Admin: 03/07/18 09:34 Dose: 0.25 mcg Calcium Acetate (Phoslo) 667 mg PO TIDCC [facility] Last Admin: 03/07/18 12:24 Dose: 667 mg Carvedilol (Coreg) 25 mg PO Q12 [facility] Last Admin: 03/07/18 16:04 Dose: 25 mg Docusate Sodium (Colace) 100 mg PO TID [facility] Last Admin: 03/07/18 13:22 Dose: 100 mg Epoetin Wild (Procrit) 20,000 unit IV TTS [facility] Ferrous Sulfate (Feosol) 325 mg PO TID [facility] Last Admin: 03/07/18 13:23 Dose: 325 mg Furosemide (Lasix) 40 mg PO BID [facility] Last Admin: 03/07/18 09:48 Dose: Not Given Heparin Sodium (Porcine) (Heparin) 5,000 units SC Q12 [facility] Last Admin: 03/07/18 09:33 Dose: 5,000 units Hydralazine HCl (Apresoline) 10 mg PO Q8 [facility] Last Admin: 03/07/18 13:23 Dose: Not Given Insulin Aspart (Novolog) 0 unit SC ACHS [facility] PRN Reason: Protocol Last Admin: 03/07/18 12:24 Dose: 2 units Insulin Glargine (Lantus) 20 unit SC HS [facility] Last Admin: 03/06/18 21:17 Dose: 20 units Isosorbide Mononitrate (Imdur) 60 mg PO DAILY [facility] Last Admin: 03/07/18 09:48 Dose: Not Given Rosuvastatin Calcium (Crestor) 10 mg PO [facility] Last Admin: 03/06/18 21:17 Dose: 10 mg - Labs Labs: 03/07/18 06:25 03/07/18 06:25 - Constitutional Appears: Well - Head Exam Head Exam: ATRAUMATIC, NORMAL INSPECTION, NORMOCEPHALIC - Eye Exam Eye Exam: EOMI, Normal appearance, PERRL Pupil Exam: NORMAL ACCOMODATION, PERRL - ENT Exam ENT Exam: Mucous Membranes Moist, Normal Exam - Neck Exam Neck Exam: Full ROM, Normal Inspection. absent: Lymphadenopathy - Respiratory Exam Respiratory Exam: Decreased Breath Sounds - Cardiovascular Exam Cardiovascular Exam: REGULAR RHYTHM, +S1, +S2 - GI/Abdominal Exam GI & Abdominal Exam: Soft, Diminished Bowel Sounds - Rectal Exam Rectal Exam: Deferred
--- NOTE | 2018-03-07 18:40 | CP.PCM.PN ---
Subjective - Date & Time of Evaluation Date of Evaluation: 03/07/18 Time of Evaluation: 18:40 - Subjective Subjective: pt is seen and examined, follow up consult is dictated #[id number] Objective - Vital Signs/Intake and Output Vital Signs (last 24 hours): Temp Pulse Resp BP Pulse Ox 97.7 F 55 L 15 166/60 H 98 03/07/18 15:30 03/07/18 17:30 03/07/18 17:30 03/07/18 17:30 03/07/18 17:30 Intake and Output: 03/07/18 03/07/18 06:59 18:59 Intake Total 300 Balance 300 - Medications Medications: Current Medications Amlodipine Besylate (Norvasc) 10 mg PO DAILY [facility] Last Admin: 03/07/18 16:04 Dose: 10 mg Aspirin (Ecotrin) 81 mg PO DAILY [facility] Last Admin: 03/07/18 09:34 Dose: 81 mg Calcitriol (Rocaltrol) 0.25 mcg PO DAILY [facility] Last Admin: 03/07/18 09:34 Dose: 0.25 mcg Calcium Acetate (Phoslo) 667 mg PO TIDCC [facility] Last Admin: 03/07/18 18:00 Dose: Not Given Carvedilol (Coreg) 25 mg PO Q12 [facility] Last Admin: 03/07/18 16:04 Dose: 25 mg Docusate Sodium (Colace) 100 mg PO TID [facility] Last Admin: 03/07/18 13:22 Dose: 100 mg Epoetin Wild (Procrit) 20,000 unit IV TTS [facility] Ferrous Sulfate (Feosol) 325 mg PO TID [facility] Last Admin: 03/07/18 13:23 Dose: 325 mg Furosemide (Lasix) 40 mg PO BID [facility] Last Admin: 03/07/18 09:48 Dose: Not Given Heparin Sodium (Porcine) (Heparin) 5,000 units SC Q12 [facility] Last Admin: 03/07/18 09:33 Dose: 5,000 units Hydralazine HCl (Apresoline) 10 mg PO Q8 [facility] Last Admin: 03/07/18 13:23 Dose: Not Given Insulin Aspart (Novolog) 0 unit SC [facility] PRN Reason: Protocol Last Admin: 03/07/18 16:30 Dose: Not Given Insulin Glargine (Lantus) 20 unit SC HS [facility] Last Admin: 03/06/18 21:17 Dose: 20 units Isosorbide Mononitrate (Imdur) 60 mg PO DAILY [facility] Last Admin: 03/07/18 09:48 Dose: Not Given Rosuvastatin Calcium (Crestor) 10 mg PO HS [facility] Last Admin: 03/06/18 21:17 Dose: 10 mg - Labs Labs: 03/07/18 06:25 03/07/18 06:25
[2018-03-07] MEDS: (Lantus) Insulin Glargine, Recombinant SC SCH (22:04)
[2018-03-08 07:07] LABS: BASO % 0.8 % (0.0-2.0); EOS # 0.1 K/uL (0.0-0.7); EOS % 2.4 % (0.0-4.0); LYMPH # 1.2 K/uL (1.0-4.3); LYMPH % 20.7 % (20.0-40.0); MEAN CELL VOLUME 91.1 fL (81.0-99.0); MEAN PLATELET VOLUME 8.4 fL (7.2-11.7); MONO # 0.8 K/uL (0.0-0.8); MONO % 14.5 % (0.0-10.0); NEUT # 3.4 K/uL (1.8-7.0); NEUT % 61.6 % (50.0-75.0); RBC 2.58 Mil/uL (3.80-5.20); RED CELL DISTRIBUTION WIDTH 15.1 % (11.5-14.5); WHITE BLOOD COUNT 5.6 K/uL (4.8-10.8)
[2018-03-08 07:37] LABS: ALB/GLOB RATIO 1.2 (1.0-2.1); ALBUMIN 3.6 g/dL (3.5-5.0); CALCIUM 8.8 mg/dl (8.6-10.4)
[2018-03-08] MEDS: (Novolog) Insulin Aspart, Recombinant 100 u/ml 10 ml vial SC SCH ×3 (07:41→22:21)
--- NOTE | 2018-03-08 08:48 | PN ---
DATE: 03/07/2018 FOLLOWUP RENAL CONSULTATION LOCATION: The patient is located in room 562, bed A. REQUESTED BY: Rakan Wells MD REASON FOR FOLLOWUP: End-stage renal disease, continuation of hemodialysis. SUBJECTIVE: The patient is a 58-year-old middle-aged female with past medical history significant for longstanding hypertension, diabetes, end-stage renal disease, CKD-V, refusing hemodialysis for long time, hyperkalemia, metabolic acidosis, and anemia, recently admitted with chest discomfort, nausea, and vomiting. The patient agreed for dialysis after one week and came back Monday, yesterday, requesting for initiation of hemodialysis. The patient underwent first hemodialysis on 03/06/2018 and also received second treatment today without any difficulty. The patient denies any complaints. No chest pain. No palpitations. No fever. No cough. No abdominal pain. No nausea, vomiting, or diarrhea. PHYSICAL EXAMINATION: GENERAL: The patient is a 58-year-old middle-aged female, well built, well nourished, not in acute distress. VITAL SIGNS: Blood pressure 156/68, pulse 54, respirations about 14, saturations 98%, and temperature 97.7. HEENT: Pupils are normal and reactive to light and accommodation. Conjunctivae are pink. Sclerae are anicteric. Tongue is moist. Trachea is midline. LUNGS: Symmetric on both sides. Bilateral breath sounds present. Clear to auscultation. CVS: [place] at the fifth intercostal space, midclavicular line. S1 and S2 audible. No murmur. No gallop. ABDOMEN: Normal in appearance, soft, tympanic. No guarding. No rigidity. No hepatosplenomegaly. [employer] TECH[employer]ICIAN: The patient is alert, awake, oriented x3. Nonfocal on examination. Cranial nerves II through XII are grossly intact. Sensory and motor system within normal limits. EXTREMITIES: No cyanosis, no clubbing, no edema. CURRENT MEDICATIONS: Include as follows: Hydralazine, Colace, Coreg, Crestor, aspirin, ferrous sulfate, subcu heparin, Imdur, Lantus, Lasix, amlodipine, calcium acetate, Epogen, and calcitriol. LABORATORY DATA: Her current laboratory data include as follows: As of 03/06/2018, WBC 5.7, hemoglobin 7.7, hematocrit is 22.8, platelets 216,000. Sodium 142, potassium 4.1, chloride 99, CO2 of 27, BUN 32, creatinine 6.8, glucose 114, calcium 8.6. Total bili is 0.4, AST 15, ALT 17, alkaline phosphatase 49, total protein 6.6, albumin 3.6. Hepatitis B surface antigen negative. Core antibody IgM is negative. Hepatitis C IgM antibody is negative. ASSESSMENT AND PLAN: In summary, the patient is a 58-year-old middle-aged female with hypertension, diabetes, hyperlipidemia, hyperkalemia, metabolic acidosis, anemia, secondary hyperparathyroidism, agreed for hemodialysis after long time. The patient underwent second hemodialysis treatment without any complication. No ultrafiltration. 1. End-stage renal disease secondary to diabetic nephropathy. 2. Hypertension, uncontrolled. Continue with her current medications, titrate as needed hydralazine, and we will try to ultrafiltrate as much as the patient can tolerate with the next hemodialysis. 3. Anemia secondary to renal failure. Continue Epogen, and we will add intravenous iron during hemodialysis with the next hemodialysis. 4. Diabetes. 5. Secondary hyperparathyroidism. Continue vitamin D, Zemplar 2 mcg three times a week. We will discontinue per oral calcitriol and also discontinue Feosol, discontinue Lasix. We will follow up with Social Service for outpatient hemodialysis unit placement. We will follow with you. Thank you for allowing me to participate in your patient's care. Chrissie Moore MD
--- NOTE | 2018-03-08 08:48 | CON ---
DATE: 03/06/2018 LOCATION: The patient is located in the emergency room hallway . REQUESTED BY: Rakan Wells MD REASON FOR RENAL CONSULTATION: End-stage renal disease, for initiating renal replacement therapy and dialysis. HISTORY OF PRESENT ILLNESS: The patient is a 58-year-old middle-aged female with a past medical history significant for longstanding hypertension, diabetes, chronic kidney disease, hyperkalemia, metabolic acidosis, secondary hyperparathyroidism, status post left upper extremity AV fistula, status post cataract surgery and also diabetic retinopathy who was recently admitted to the hospital with chest discomfort and nausea and vomiting. Subsequently, discharged home. The patient did not want to start dialysis at that time as she was planning to travel last week and now the patient presented to the emergency room requesting initiation of the hemodialysis and complains feeling weak and tired and also worsening renal function. Denies any chest pain or palpitation. Denies any shortness of breath. Denies any abdominal pain. Denies any dysuria or frequency. Denies edema of the legs. PAST MEDICAL HISTORY: Significant for longstanding hypertension, diabetes, hyperlipidemia, diabetic retinopathy, metabolic acidosis, hyperkalemia, and secondary hyperparathyroidism. PAST SURGICAL HISTORY: Status post cataract surgery and also status post left upper extremity AV fistula placement. ALLERGIES: NO KNOWN DRUG ALLERGIES. SOCIAL HISTORY: No smoking. No alcohol. No drugs. PERSONAL HISTORY: She is and she has a very supportive family. FAMILY HISTORY: Not significant. CURRENT MEDICATIONS: Include as follows: Hydralazine 10 mg p.o. every 8 hours, Colace 100 mg p.o. t.i.d., Coreg 25 mg p.o. every 12 hours, Crestor 10 mg at bedtime, aspirin 81 mg daily, Feosol 325 mg p.o. t.i.d., subcu heparin 5000 every 12 hours, Imdur 60 mg p.o. daily, Lantus 20 units subcu at bedtime, Lasix 40 mg p.o. b.i.d., amlodipine 10 mg daily, PhosLo 667 mg p.o. t.i.d., Epogen 20,000 units IV three times a week, and Rocaltrol 0.25 mcg p.o. daily. REVIEW OF SYSTEMS: Significant for generalized weakness and fatigue, also significant for anemia and worsening renal function. All other review of systems reviewed and negative. PHYSICAL EXAMINATION: VITAL SIGNS: Blood pressure this morning is 170/70, pulse 59, respirations 20, temperature 97.7, saturation 99%. Height 5 feet 4 inches, weight is 135 pounds. GENERAL: The patient is a 58-year-old middle-aged female, moderately built, moderately nourished, not in acute distress. HEENT: Pupils normally reactive to light. Conjunctivae pink. Sclerae anicteric. Tongue is moist and trachea is midline. LUNGS: Symmetric on both sides. Bilateral breath sounds present. Clear to auscultation. CVS: Newell at the fifth intercostal space, midclavicular line. S1 and S2 audible. No murmur or gallop. ABDOMEN: Normal in appearance. Soft, tympanic. No guarding. No rigidity. No hepatosplenomegaly. CALF SKINNER: The patient is awake, alert, oriented x3. Nonfocal neuro examination. Cranial nerves II through XII grossly intact. Sensory and motor system within normal limits. EXTREMITIES: No cyanosis. No clubbing. No edema. LABORATORY DATA: Include as follows: As of 03/06/2018, WBC 7.1, hemoglobin 8.2, hematocrit is 24.1, platelets 225. Sodium 143, potassium 5.3, chloride 97, CO2 26, BUN 74, creatinine 12.1, glucose 175, calcium 10.9. Total bili 0.4, AST 18, ALT 24, alkaline phosphatase is 59, total protein 7.4, albumin is 4.2, and lipase is 236. Hepatitis A IgM antibody is negative with B cells and antigen negative. Hepatitis B core antibody IgM is negative and hepatitis C antibody is negative. X-ray of the abdomen as of 03/06/2018: No infiltrate. Moderate stool retention, no evidence of mechanical bowel obstruction. ASSESSMENT AND PLAN: In summary, the patient is a 58-year-old middle-aged female with hypertension, diabetes, diabetic retinopathy, end-stage renal disease, hyperkalemia, metabolic acidosis, and secondary hyperparathyroidism with worsening renal function with weakness and fatigue and occasional nausea. 1. End-stage renal disease, continue her current medication. We will start renal replacement therapy. The patient and the patient's son agreed for the renal replacement therapy. We will do hemodialysis today and tomorrow and follow up with social service for outpatient hemodialysis unit placement in [facility]. 2. Uncontrolled hypertension. 3. Diabetes. 4. Hyperkalemia. 5. Anemia secondary to end-stage renal disease, cannot rule out iron deficiency anemia. We will check iron TIBC and ferritin level and we will continue Epogen three times a week, and mild hypercalcemia, we will hold calcitriol at this time. Increase hydralazine to 25 mg p.o. every 8 hours and hold for systolic blood pressure less than 130. We will follow with you. Thank you for allowing me to participate in your patient's care. Chrissie Moore MD
[2018-03-08] MEDS ORDERED: Epoetin Alfa Dialysis 20000 UNIT/ML Inj IV SCH (10:00)
--- NOTE | 2018-03-08 14:44 | CP.PCM.PN ---
Subjective - Date & Time of Evaluation Date of Evaluation: 03/08/18 Time of Evaluation: 08:00 - Subjective Subjective: PGY-[address] Wells's service Pt seen and examined at bedside. Nursing reports no acute events overnight. Patient found resting comfortably in bed. Denies acute complaints this AM. Reports tolerating dialysis without complaints. Denies chest pain, palpitations , SOB. Objective - Vital Signs/Intake and Output Vital Signs (last 24 hours): Temp Pulse Resp BP Pulse Ox 98.2 F 60 20 168/74 H 100 03/08/18 08:45 03/08/18 08:45 03/08/18 08:45 03/08/18 10:05 03/08/18 08:45 Intake and Output: 03/08/18 03/08/18 06:59 18:59 Intake Total 400 Balance 400 - Medications Medications: Current Medications Amlodipine Besylate (Norvasc) 10 mg PO DAILY [facility] Last Admin: 03/08/18 10:05 Dose: 10 mg Aspirin (Ecotrin) 81 mg PO DAILY [facility] Last Admin: 03/08/18 10:05 Dose: 81 mg Calcitriol (Rocaltrol) 0.25 mcg PO DAILY [facility] Last Admin: 03/08/18 10:04 Dose: 0.25 mcg Calcium Acetate (Phoslo) 667 mg PO TIDCC [facility] Last Admin: 03/08/18 12:36 Dose: 667 mg Carvedilol (Coreg) 25 mg PO Q12 [facility] Last Admin: 03/08/18 10:05 Dose: 25 mg Docusate Sodium (Colace) 100 mg PO TID [facility] Last Admin: 03/08/18 13:32 Dose: 100 mg Epoetin Wild (Procrit) 20,000 unit IV TTS [facility] Furosemide (Lasix) 40 mg PO BID [facility] Last Admin: 03/08/18 10:05 Dose: 40 mg Heparin Sodium (Porcine) (Heparin) 5,000 units SC Q12 [facility] Last Admin: 03/08/18 10:04 Dose: 5,000 units Hydralazine HCl (Apresoline) 10 mg PO Q8 [facility] Last Admin: 03/08/18 13:32 Dose: 10 mg Insulin Aspart (Novolog) 0 unit SC ACHS [facility] PRN Reason: Protocol Last Admin: 03/08/18 12:30 Dose: 3 units Insulin Glargine (Lantus) 20 unit SC HS [facility] Last Admin: 03/07/18 22:04 Dose: 20 units Isosorbide Mononitrate (Imdur) 60 mg PO DAILY [facility] Last Admin: 03/08/18 10:04 Dose: 60 mg Rosuvastatin Calcium (Crestor) 10 mg PO HS [facility] Last Admin: 03/07/18 22:02 Dose: 10 mg - Labs Labs: 03/08/18 07:00 03/08/18 07:00 - Additional Findings Additional findings: - Head Exam Head Exam: ATRAUMATIC, NORMAL INSPECTION, NORMOCEPHALIC - Eye Exam Eye Exam: EOMI, Normal appearance, PERRL Pupil Exam: NORMAL ACCOMODATION, PERRL - ENT Exam ENT Exam: Mucous Membranes Moist, Normal Oropharynx - Respiratory Exam Respiratory Exam: Clear to Ausculation Bilateral, NORMAL BREATHING PATTERN - Cardiovascular Exam Cardiovascular Exam: REGULAR RHYTHM, +S1, +S2 - GI/Abdominal Exam GI & Abdominal Exam: Soft, Normal Bowel Sounds - Extremities Exam Extremities Exam: Full ROM, Normal Inspection. absent: Pedal Edema Left AV shunt- + thrill - Back Exam Back Exam: NORMAL INSPECTION. absent: CVA tenderness (L), CVA tenderness (R), paraspinal tenderness - Neurological Exam Neurological Exam: Alert, Awake, CN II-XII Intact, Oriented x3 - Psychiatric Exam Psychiatric exam: Normal Affect, Normal Mood - Skin Skin Exam: Dry, Intact, Normal Color Assessment and Plan - Assessment and Plan (Free Text) Plan: End Stage Renal Disease Etiology: Secondary to Diabetic Nephropathy Hemodialysis started on this admission Nephrology consulted, Dr. Small, help appreciated - 1st dialysis 03/06, repeat 03/07 - working on hemodialysis placement Secondary Hyperparathyroidism Continue Zemplar 2mcg three times weekly Discontinue Calcitrol per Nephro Hypertension Elevated over course Norvasc 10mg PO Daily Hydralazine increased to 25 mg PO Q8H Coreg 25mg PO Q12H Imdur 60mg PO daily Discontinue Lasix per nephro Diabetes mellitus Accuchecks ACHS Hypoglycemia protocol ISS increased to medium Lantus 20mg SC HS ASA 81mg PO Daily Crestor 10mg PO HS f/u A1c, lipid panel Hyperlipidemia Crestor 10mg PO HS f/u lipid panel Anemia of Chronic Disease Hgb stable at 8 Procrit 20k units TTS Discontinue Feosol per Nephro Prophylaxis Colace 100mg PO TID Heparin 5000u Q12H RASHIDA SCDs Renal Diet Disposition: Awaiting outpatient dialysis placement. Adjusted diabetes/htn meds Tab Ramsey PGY-2 All medical management per Dr. Wells
[2018-03-08] MEDS ORDERED: Dextrose 50% SYRINGE Inj (50 ml) IV PRN (15:00)
[2018-03-08] MEDS ORDERED: Glucagon Recombinant 1 mg Inj IM PRN (15:00)
--- NOTE | 2018-03-08 15:23 | CP.PCM.PN ---
Subjective - Date & Time of Evaluation Date of Evaluation: 03/08/18 Time of Evaluation: 15:21 - Subjective Subjective: pt is seen and examined, follow up consult is dictated #[id number] pt is accepted [facility] at 2:15 pm can be discharged Objective - Vital Signs/Intake and Output Vital Signs (last 24 hours): Temp Pulse Resp BP Pulse Ox 98.2 F 60 20 168/74 H 100 03/08/18 08:45 03/08/18 08:45 03/08/18 08:45 03/08/18 10:05 03/08/18 08:45 Intake and Output: 03/08/18 03/08/18 06:59 18:59 Intake Total 400 Balance 400 - Medications Medications: Current Medications Amlodipine Besylate (Norvasc) 10 mg PO DAILY [facility] Last Admin: 03/08/18 10:05 Dose: 10 mg Aspirin (Ecotrin) 81 mg PO DAILY [facility] Last Admin: 03/08/18 10:05 Dose: 81 mg Calcium Acetate (Phoslo) 667 mg PO TIDCC [facility] Last Admin: 03/08/18 12:36 Dose: 667 mg Carvedilol (Coreg) 25 mg PO Q12 [facility] Last Admin: 03/08/18 10:05 Dose: 25 mg Dextrose (Dextrose 50% Inj) 0 ml IV STAT PRN; Protocol PRN Reason: Hypoglycemia Protocol Dextrose (Glutose 15) 0 gm PO ONCE PRN; Protocol PRN Reason: Hypoglycemia Protocol Docusate Sodium (Colace) 100 mg PO TID [facility] Last Admin: 03/08/18 13:32 Dose: 100 mg Epoetin Wild (Procrit) 20,000 unit IV TTS [facility] Glucagon (Glucagen Diagnostic Kit) 0 mg IM STAT PRN; Protocol PRN Reason: Hypoglycemia Protocol Heparin Sodium (Porcine) (Heparin) 5,000 units SC Q12 [facility] Last Admin: 03/08/18 10:04 Dose: 5,000 units Hydralazine HCl (Apresoline) 25 mg PO Q8 [facility] Dextrose (Dextrose 5% In Water 1000 Ml) 1,000 mls @ 0 mls/hr IV .Q0M PRN; Protocol; Per Protocol PRN Reason: Hypoglycemia Protocol Insulin Aspart (Novolog) 0 unit SC ACHS [facility] PRN Reason: Protocol Insulin Glargine (Lantus) 20 unit SC HS [facility] Last Admin: 03/07/18 22:04 Dose: 20 units Isosorbide Mononitrate (Imdur) 60 mg PO DAILY [facility] Last Admin: 03/08/18 10:04 Dose: 60 mg Paricalcitol (Zemplar) 2 mcg IV ONCE ONE Stop: 03/08/18 14:58 Rosuvastatin Calcium (Crestor) 10 mg PO [facility] Last Admin: 03/07/18 22:02 Dose: 10 mg - Labs Labs: 03/08/18 07:00 03/08/18 07:00
[2018-03-08] MEDS ORDERED: Paricalcitol 2 mcg/ml Inj IV ONE (16:00)
--- NOTE | 2018-03-08 16:56 | CP.PCM.PN ---
Subjective - Date & Time of Evaluation Date of Evaluation: 03/08/18 Time of Evaluation: 08:40 - Subjective Subjective: clinically same Objective - Vital Signs/Intake and Output Vital Signs (last 24 hours): Temp Pulse Resp BP Pulse Ox 98.5 F 65 20 144/66 96 03/08/18 16:00 03/08/18 16:00 03/08/18 16:00 03/08/18 16:00 03/08/18 16:00 Intake and Output: 03/08/18 03/08/18 06:59 18:59 Intake Total 400 Balance 400 - Medications Medications: Current Medications Amlodipine Besylate (Norvasc) 10 mg PO DAILY [facility] Last Admin: 03/08/18 10:05 Dose: 10 mg Aspirin (Ecotrin) 81 mg PO DAILY [facility] Last Admin: 03/08/18 10:05 Dose: 81 mg Calcium Acetate (Phoslo) 667 mg PO TIDCC [facility] Last Admin: 03/08/18 12:36 Dose: 667 mg Carvedilol (Coreg) 25 mg PO Q12 [facility] Last Admin: 03/08/18 10:05 Dose: 25 mg Dextrose (Dextrose 50% Inj) 0 ml IV STAT PRN; Protocol PRN Reason: Hypoglycemia Protocol Dextrose (Glutose 15) 0 gm PO ONCE PRN; Protocol PRN Reason: Hypoglycemia Protocol Docusate Sodium (Colace) 100 mg PO TID [facility] Last Admin: 03/08/18 13:32 Dose: 100 mg Epoetin Wild (Procrit) 20,000 unit IV TTS [facility] Glucagon (Glucagen Diagnostic Kit) 0 mg IM STAT PRN; Protocol PRN Reason: Hypoglycemia Protocol Heparin Sodium (Porcine) (Heparin) 5,000 units SC Q12 [facility] Last Admin: 03/08/18 10:04 Dose: 5,000 units Hydralazine HCl (Apresoline) 25 mg PO Q8 [facility] Dextrose (Dextrose 5% In Water 1000 Ml) 1,000 mls @ 0 mls/hr IV .Q0M PRN; Protocol; Per Protocol PRN Reason: Hypoglycemia Protocol Insulin Aspart (Novolog) 0 unit SC ACHS [facility] PRN Reason: Protocol Insulin Glargine (Lantus) 20 unit SC HS [facility] Last Admin: 03/07/18 22:04 Dose: 20 units Isosorbide Mononitrate (Imdur) 60 mg PO DAILY [facility] Last Admin: 03/08/18 10:04 Dose: 60 mg Rosuvastatin Calcium (Crestor) 10 mg PO HS [facility] Last Admin: 03/07/18 22:02 Dose: 10 mg - Labs Labs: 03/08/18 07:00 03/08/18 07:00 - Constitutional Appears: Well - Head Exam Head Exam: ATRAUMATIC, NORMAL INSPECTION, NORMOCEPHALIC - Eye Exam Eye Exam: EOMI, Normal appearance, PERRL Pupil Exam: NORMAL ACCOMODATION, PERRL - ENT Exam ENT Exam: Mucous Membranes Moist, Normal Exam - Neck Exam Neck Exam: Full ROM, Normal Inspection. absent: Lymphadenopathy - Respiratory Exam Respiratory Exam: Decreased Breath Sounds - Cardiovascular Exam Cardiovascular Exam: REGULAR RHYTHM, +S1, +S2 - GI/Abdominal Exam GI & Abdominal Exam: Soft, Diminished Bowel Sounds - Rectal Exam Rectal Exam: Deferred
[2018-03-08] MEDS: (Lantus) Insulin Glargine, Recombinant SC SCH (22:20)
[2018-03-09] MEDS: (Novolog) Insulin Aspart, Recombinant 100 u/ml 10 ml vial SC SCH ×2 (07:34→12:35)
[2018-03-09 08:33] LABS: BASO # 0.1 K/uL (0.0-0.2); BASO % 0.9 % (0.0-2.0); EOS # 0.2 K/uL (0.0-0.7); EOS % 3.1 % (0.0-4.0); HEMOGLOBIN 7.7 g/dL (11.0-16.0); LYMPH # 1.4 K/uL (1.0-4.3); LYMPH % 23.9 % (20.0-40.0); MEAN CELL VOLUME 91.5 fL (81.0-99.0); MEAN CORPUSCULAR HEMOGLOBIN 31.6 pg (27.0-31.0); MEAN CORPUSCULAR HGB CONC 34.6 g/dL (33.0-37.0); MEAN PLATELET VOLUME 8.4 fL (7.2-11.7); MONO # 0.7 K/uL (0.0-0.8); MONO % 12.1 % (0.0-10.0); NEUT # 3.6 K/uL (1.8-7.0); RBC 2.42 Mil/uL (3.80-5.20); RED CELL DISTRIBUTION WIDTH 15.7 % (11.5-14.5)
[2018-03-09 09:00] LABS: ALB/GLOB RATIO 1.2 (1.0-2.1); ALBUMIN 3.6 g/dL (3.5-5.0); CALCIUM 8.9 mg/dl (8.6-10.4)
--- NOTE | 2018-03-09 09:08 | CP.PCM.PN ---
Subjective - Date & Time of Evaluation Date of Evaluation: 03/09/18 Time of Evaluation: 09:08 - Subjective Subjective: Progress Note for Dr. Wiliam Wells Patient seen and examined at bedside. Per nursing no acute events occurred overnight. Patient denies any chest pain, shortness of breath, fevers, chills, abdominal pain, nausea, vomiting, headaches, changes in vision, or any other complaints. Objective - Vital Signs/Intake and Output Vital Signs (last 24 hours): Temp Pulse Resp BP Pulse Ox 98.2 F 62 18 155/70 H 100 03/09/18 08:29 03/09/18 08:29 03/09/18 08:29 03/09/18 08:29 03/09/18 08:29 - Medications Medications: Current Medications Amlodipine Besylate (Norvasc) 10 mg PO DAILY [facility] Last Admin: 03/08/18 10:05 Dose: 10 mg Aspirin (Ecotrin) 81 mg PO DAILY [facility] Last Admin: 03/08/18 10:05 Dose: 81 mg Calcium Acetate (Phoslo) 667 mg PO TIDCC [facility] Last Admin: 03/09/18 08:36 Dose: 667 mg Carvedilol (Coreg) 25 mg PO Q12 [facility] Last Admin: 03/08/18 22:20 Dose: 25 mg Dextrose (Dextrose 50% Inj) 0 ml IV STAT PRN; Protocol PRN Reason: Hypoglycemia Protocol Dextrose (Glutose 15) 0 gm PO ONCE PRN; Protocol PRN Reason: Hypoglycemia Protocol Docusate Sodium (Colace) 100 mg PO TID [facility] Last Admin: 03/08/18 18:24 Dose: 100 mg Epoetin Wild (Procrit) 20,000 unit IV TTS [facility] Glucagon (Glucagen Diagnostic Kit) 0 mg IM STAT PRN; Protocol PRN Reason: Hypoglycemia Protocol Heparin Sodium (Porcine) (Heparin) 5,000 units SC Q12 [facility] Last Admin: 03/08/18 22:19 Dose: 5,000 units Hydralazine HCl (Apresoline) 25 mg PO Q8 [facility] Last Admin: 03/09/18 06:13 Dose: 25 mg Dextrose (Dextrose 5% In Water 1000 Ml) 1,000 mls @ 0 mls/hr IV .Q0M PRN; Protocol; Per Protocol PRN Reason: Hypoglycemia Protocol Insulin Aspart (Novolog) 0 unit SC ACHS [facility] PRN Reason: Protocol Last Admin: 03/09/18 07:34 Dose: Not Given Insulin Glargine (Lantus) 20 unit SC HS [facility] Last Admin: 03/08/18 22:20 Dose: 20 units Isosorbide Mononitrate (Imdur) 60 mg PO DAILY [facility] Last Admin: 03/08/18 10:04 Dose: 60 mg Rosuvastatin Calcium (Crestor) 10 mg PO HS [facility] Last Admin: 03/08/18 22:20 Dose: 10 mg - Labs Labs: 03/09/18 08:26 03/09/18 08:26 - Head Exam Head Exam: ATRAUMATIC, NORMAL INSPECTION, NORMOCEPHALIC - Eye Exam Eye Exam: EOMI, Normal appearance, PERRL. absent: Periorbital tenderness Pupil Exam: NORMAL ACCOMODATION - ENT Exam ENT Exam: Mucous Membranes Moist, Normal Exam, Normal Oropharynx - Respiratory Exam Respiratory Exam: Clear to Ausculation Bilateral, NORMAL BREATHING PATTERN. absent: Chest Wall Tenderness, Prolonged Expiratory Phase, Respiratory Distress - Cardiovascular Exam Cardiovascular Exam: REGULAR RHYTHM, +S1, +S2 - GI/Abdominal Exam GI & Abdominal Exam: Soft, Normal Bowel Sounds. absent: Rigid, Hyperactive Bowel Sounds - Extremities Exam Extremities Exam: Normal Inspection. absent: Pedal Edema - Back Exam Back Exam: NORMAL INSPECTION. absent: CVA tenderness (R), paraspinal tenderness - Neurological Exam Neurological Exam: Alert, Awake, CN II-XII Intact, Oriented x3 - Skin Skin Exam: Dry, Intact, Normal Color, Warm Assessment and Plan - Assessment and Plan (Free Text) Assessment: 58 year old female with a past medical history of ESRD, hypertension, diabetes, hyperlipidemia who was admitted for chest pain. Plan: End Stage Renal Disease Etiology: Secondary to Diabetic Nephropathy Hemodialysis started on this admission Nephrology consulted, Dr. Small, help appreciated - 1st dialysis 03/06, repeat 03/07 - got Approval for [facility] Hemodialysis facility MWF @2:15P.M. Secondary Hyperparathyroidism Continue Zemplar 2mcg given once. Hypertension Elevated over course Hydralazine 25 mg PO Q8H Coreg 25mg PO Q12H Imdur 60mg PO daily Discontinue Lasix per nephro Diabetes mellitus Accuchecks [facility] Hypoglycemia protocol ISS increased to medium Lantus 20mg SC HS ASA 81mg PO Daily Crestor 10mg PO HS Hemoglobin A1C:7.7% Hyperlipidemia Crestor 10mg PO HS Lipid panel: Cholesterol:122 Triglycerides:152 LDL:49 HDL: 45 Anemia of Chronic Disease Hgb stable at 7.7 Procrit 20k units MWF Discontinue Feosol per Nephro Prophylaxis Colace 100mg PO TID Heparin 5000u Q12H RASHIDA SCDs Renal Diet Disposition: Patient Approved for [facility] Facility for Hemodialysis MWF @2: 15P.M. Patient expected to be discharged. Plan discussed with Dr. Wiliam Kline Discharge Instructions: 1. Follow up with PMD within 5 to 7 days of discharge. 2. Follow up with Site Acquisition Specialist within 5 to 7 days of discharge. 3 .Return to hospital for any new or worsening symptoms Medications: 1.Hydralazine 25mg PO Q8, #90, No refills 2. Insullin [id number] unit SC BID, 1 Vial, No refills 3.Crestor 10mg PO HS, #30, No refills.
--- NOTE | 2018-03-09 09:43 | CON ---
DATE: 03/08/2018 LOCATION: The patient is located at room 560, bed A. REQUESTED BY: Rakan Wells MD. REASON FOR FOLLOWUP: Endstage renal disease, continuation of the hemodialysis. HISTORY OF PRESENT ILLNESS: The patient is a 58-year-old middle aged female with history of longstanding hypertension, diabetes, endstage renal disease, hyperkalemia, metabolic acidosis, secondary hyperparathyroidism, was admitted with worsening renal function, started on hemodialysis. The patient is feeling much better after initiation of hemodialysis. No chest pain, palpitation. No fever. No cough. No abdominal pain. No nausea, vomiting, diarrhea. PHYSICAL EXAMINATION: VITAL SIGNS: As follows: Blood pressure 168/70, pulse about 60, respirations 20, temperature 98.2, saturation 100%, height 5 feet 4 inches, weight is 144 pounds. GENERAL: The patient is a 58-year-old middle aged female, moderately build, moderately nourished, not in acute distress. HEENT: Pupils normal and reactive to light and accommodation. Conjunctiva pink. Sclera nonicteric. Tongue is moist, and tracheal is midline. LUNGS: Symmetric on both sides. Bilateral breath sounds present. Clear to auscultation. CVS: Wallace at the fifth intercostal space. Midclavicular line. S1, S2 audible. No murmur, gallop. ABDOMEN: Normal in appearance, soft, tympanic. No guarding. No rigidity. No hepatosplenomegaly. ENVIRONMENTAL SAFETY SPECIALIST: The patient is alert, awake, oriented x3. Nonfocal neuro examination. Cranial nerves II through XII grossly intact. Sensory and motor system is within normal limits. Deep tendon reflexes are normal. EXTREMITIES: No cyanosis, no clubbing. No edema. MEDICATION: Her current medications include as follows: Hydralazine 25 mg p.o. every 8 hours, Colace 100 mg p.o. t.i.d., Coreg 25 mg p.o. every 12 hours, and Crestor 10 mg at bedtime, aspirin 81 mg daily, subcutaneous heparin 5000 units every 12 hours, Imdur 60 mg daily, Lantus 20 units subcutaneous at bedtime, amlodipine 10 mg daily, PhosLo 667 mg p.o. t.i.d., and Epogen 20,000 units IV three times a week. LABORATORY DATA: As of 03/08/2018, WBC 5.6, hemoglobin 8, hematocrit is 23.5, platelets 196,000. Sodium 142, potassium 3.9, chloride 101, CO2 of 30, BUN 18, creatinine 4.8, glucose is 102, calcium 8.8, total bili 0.4, AST 15, ALT is 17, alkaline phosphatase 52, total protein 6.6, albumin is 3.6. Accu-Cheks 274 and 242. IMPRESSION: In summary, the patient is a 58-year-old middle aged female with hypertension, diabetes, diabetic retinopathy, endstage renal disease, anemia, hyperkalemia, metabolic acidosis, secondary hyperparathyroidism, started on hemodialysis on Monday, and also received dialysis on Monday. Next dialysis on Monday. 1. Endstage renal disease, continue hemodialysis three times a week, Monday, Monday, and Monday. Endstage renal disease is most likely secondary to diabetic nephropathy, cannot rule out underlying hypertensive nephrosclerosis. 2. Anemia secondary to endstage renal disease, rule out iron deficiency. 3. Diabetes, sugars are still on the high side. 4. Hypertension. Continue her antihypertensive medications, hydralazine, Coreg, and amlodipine. Continue Crestor, aspirin, and subcutaneous heparin, and Imdur. Continue calcium as stated and Epogen. The patient is accepted to outpatient hemodialysis unit in [facility] Monday, Monday, and Monday at 2:15 p.m. The patient can be discharged from the renal standpoint. Case discussed with Dr. Rakan Wells. Chrissie Moore MD
[2018-03-09] MEDS ORDERED: Epoetin Alfa Dialysis 20000 UNIT/ML Inj IV SCH (10:19)
[2018-03-09 16:01] VITALS: BP 163/62; RESP 18; TEMP 97.9; O2SAT 100
[2018-03-09 16:03] VITALS: PULSE 64
--- NOTE | 2018-03-09 17:39 | CP.PCM.PN ---
Subjective - Date & Time of Evaluation Date of Evaluation: 03/09/18 Time of Evaluation: 17:39 - Subjective Subjective: pt is seen and examined by me, pt denies any complaints, no sob, no cp, no palpiattaion s/p hd today Objective - Vital Signs/Intake and Output Vital Signs (last 24 hours): Temp Pulse Resp BP Pulse Ox 97.9 F 64 18 163/62 H 100 03/09/18 16:00 03/09/18 16:02 03/09/18 16:00 03/09/18 16:00 03/09/18 16:00 - Medications Medications: Current Medications Amlodipine Besylate (Norvasc) 10 mg PO DAILY [facility] Last Admin: 03/09/18 12:36 Dose: 10 mg Aspirin (Ecotrin) 81 mg PO DAILY [facility] Last Admin: 03/09/18 12:36 Dose: 81 mg Calcium Acetate (Phoslo) 667 mg PO TIDCC [facility] Last Admin: 03/09/18 12:36 Dose: 667 mg Carvedilol (Coreg) 25 mg PO Q12 [facility] Last Admin: 03/09/18 11:00 Dose: Not Given Dextrose (Dextrose 50% Inj) 0 ml IV STAT PRN; Protocol PRN Reason: Hypoglycemia Protocol Dextrose (Glutose 15) 0 gm PO ONCE PRN; Protocol PRN Reason: Hypoglycemia Protocol Docusate Sodium (Colace) 100 mg PO TID [facility] Last Admin: 03/09/18 13:10 Dose: 100 mg Epoetin Wild (Procrit) 20,000 unit IV MWF [facility] Last Admin: 03/09/18 10:52 Dose: 20,000 unit Glucagon (Glucagen Diagnostic Kit) 0 mg IM STAT PRN; Protocol PRN Reason: Hypoglycemia Protocol Heparin Sodium (Porcine) (Heparin) 5,000 units SC Q12 [facility] Last Admin: 03/09/18 11:00 Dose: Not Given Hydralazine HCl (Apresoline) 25 mg PO Q8 [facility] Last Admin: 03/09/18 13:13 Dose: 25 mg Dextrose (Dextrose 5% In Water 1000 Ml) 1,000 mls @ 0 mls/hr IV .Q0M PRN; Protocol; Per Protocol PRN Reason: Hypoglycemia Protocol Insulin Aspart (Novolog) 0 unit SC ACHS [facility] PRN Reason: Protocol Last Admin: 07/27/18 12:35 Dose: 3 units Insulin Glargine (Lantus) 20 unit SC [facility] Last Admin: 03/08/18 22:20 Dose: 20 units Isosorbide Mononitrate (Imdur) 60 mg PO DAILY [facility] Last Admin: 03/09/18 12:35 Dose: 60 mg Rosuvastatin Calcium (Crestor) 10 mg PO [facility] Last Admin: 03/08/18 22:20 Dose: 10 mg - Labs Labs: 03/09/18 08:26 03/09/18 08:26 - Constitutional Appears: Well, No Acute Distress - Head Exam Head Exam: ATRAUMATIC, NORMAL INSPECTION, NORMOCEPHALIC - Eye Exam Eye Exam: EOMI, PERRL Pupil Exam: NORMAL ACCOMODATION - ENT Exam ENT Exam: Mucous Membranes Moist - Respiratory Exam Respiratory Exam: NORMAL BREATHING PATTERN - Cardiovascular Exam Cardiovascular Exam: REGULAR RHYTHM, +S1, +S2 - GI/Abdominal Exam GI & Abdominal Exam: Soft Additional comments: non tender bS+, no HSM, no guarding ,no rigidity - Rectal Exam Rectal Exam: Deferred - Extremities Exam Additional comments: no edema of legs - Back Exam Back Exam: NORMAL INSPECTION - Neurological Exam Additional comments: AA ox3, non focal neuro exam, cn 2-1 2 grpossly intact, sensory and motor system is wnl - Skin Skin Exam: Normal Color, Warm Assessment and Plan - Assessment and Plan (Free Text) Assessment: 58 yo female with pmh/o htn, dm, esrd, s/p hyperkalemia, met. acidosis, anemai, sec. hpth with worsening renal function was admitted for initiation of renal replacement therapy 1. ESRD, c/w hd 3 x aweek [facility], [facility] hd tx, uf goal was a 1lit pt was accepted to out pt hD unit at [facility] at 2: 15 pm 2. HTn, bp is slightly high, c/w current meds, hydralazine, coreg, amlodipine advised low na diet 3. Anemia sec to ESRD, c/w epogen during hd, c/w mvi 4. DM 5. sec. hpth , vit D as per protocol
== END 2018-03-09 17:42 | disposition home or self-care (01) | DRG 682 ==
LOC: C.ER 08:21 → C.9E 10:28 → C.5S 12:59
PROVIDERS: ADMIT Internal Medicine Nephrology; ATTEND Internal Medicine Nephrology
PROC: 5A1D70Z Performance of Urinary Filtration, Intermittent, Less than 6 Hours Per Day (ICD-10-PCS; principal; 2018-03-06)
PROC: 5A1D70Z Performance of Urinary Filtration, Intermittent, Less than 6 Hours Per Day (ICD-10-PCS; 2018-03-07)
PROC: 5A1D70Z Performance of Urinary Filtration, Intermittent, Less than 6 Hours Per Day (ICD-10-PCS; 2018-03-09)
DX: I12.0 Hypertensive chronic kidney disease with stage 5 chronic kidney disease or end stage renal disease (principal); N18.6 End stage renal disease; N25.81 Secondary hyperparathyroidism of renal origin; E87.2 Acidosis; E87.5 Hyperkalemia; E78.5 Hyperlipidemia, unspecified; E10.319 Type 1 diabetes mellitus with unspecified diabetic retinopathy without macular edema; E10.22 Type 1 diabetes mellitus with diabetic chronic kidney disease; E10.21 Type 1 diabetes mellitus with diabetic nephropathy; D63.1 Anemia in chronic kidney disease; K59.00 Constipation, unspecified; Z79.4 Long term (current) use of insulin; Z99.2 Dependence on renal dialysis

== ENCOUNTER 2018-10-16 19:52 | Inpatient (IN) | payer OTHER, MEDICAID ==
[2018-10-16 19:53] VITALS: BMI 28.6
--- NOTE | 2018-10-16 20:55 | C.PDOC ---
History Of Present Illness 58 year old female with Hx of ESRD with hemodialysis M/W/F, HTN, and diabetes, presents with chills, mild fever, body aches, and nonproductive cough since yesterday after getting dialyzed. Notes that she had the flu shot this year and that her symptoms do not feel like the flu. Denies redness or rash to fistula site, neck stiffness, headache, sore throat, headache, abdominal pain, chest pain, SOB, or leg swelling. Time Seen by Provider: 10/16/18 20:53 Chief Complaint (Nursing): Fever History Per: Patient History/Exam Limitations: no limitations Onset/Duration Of Symptoms: Days Current Symptoms Are (Timing): Still Present Location Of Pain: Diffuse Myalgias Associated Symptoms: Fever, Chills, Cough, Myalgias Recent travel outside of the [place]: No Past Medical History Reviewed: Historical Data, Nursing Documentation, Vital Signs Vital Signs: Last Vital Signs Temp 102.7 F H 10/16/18 20:31 Pulse 86 10/16/18 20:31 Resp 20 10/16/18 20:31 BP 137/79 10/16/18 20:31 Pulse Ox 94 L 10/16/18 20:31 - Medical History PMH: Anemia, HTN, Hypercholesterolemia, Kidney Stones (NO SURGERY), Chronic Kidney Disease (NO DIALYSIS YET) - [facility] Procedures (03/06/18) Family History: States: Unknown Family Hx - Social History Hx Alcohol Use: No Hx Substance Use: No - Immunization History Hx Tetanus Toxoid Vaccination: No Hx Influenza Vaccination: Yes (2017) Hx Pneumococcal Vaccination: No Review Of Systems Constitutional: Positive for: Fever ENT: Negative for: Throat Pain Cardiovascular: Negative for: Chest Pain Respiratory: Negative for: Shortness of Breath Gastrointestinal: Negative for: Abdominal Pain Musculoskeletal: Positive for: Other (Body aches). Negative for: Neck Pain Skin: Negative for: Rash Neurological: Negative for: Headache Physical Exam - Physical Exam Appears: Non-toxic Skin: Normal Color, Warm, Dry Head: Atraumatic, Normacephalic Eye(s): bilateral: Normal Inspection Oral Mucosa: Moist, Other (Clean) Throat: Normal, No Erythema, No Exudate Neck: Normal, Supple, Other (No meningeal sign) Chest: Symmetrical, No Tenderness Cardiovascular: Rhythm Regular Respiratory: No Rales, Rhonchi (Right lower lobe), No Wheezing Gastrointestinal/Abdominal: Soft, No Tenderness Extremity: No Pedal Edema, Other (Left upper extremity fistula with good thrill and bruit, no sign of infection.) Pulses: Left Radial: Normal, Right Radial: Normal Neurological/Psych: Oriented x3, Normal Speech ED Course And Treatment - Laboratory Results Result Diagrams: 10/16/18 21:03 10/16/18 21:03 O2 Sat by Pulse Oximetry: 94 (Room air) Pulse Ox Interpretation: Normal Medical Decision Making Medical Decision Makin yr old female w/ ESRD p/w fever, chills, night sweats and body aches. Likely flu vs PNA. No meningeal signs, rash, urinary complaints or CVAT. Differential: Viral syndrome vs Flu vs pna EK, NSR. No stemi 1016 b/l pna per my read on XR Given ESRD, co-morbid vanc zosyn ordered appreciate consult w/ Dr. Belinda Wells- to admit to his service pt in NAD, maintaining good o2 sat on room air,agreeable to plan Disposition - Disposition Disposition: HOSPITALIZED Disposition Time: 11:24 Condition: STABLE - Clinical Impression Clinical Impression: Multifocal pneumonia - Scribe Statement The provider has reviewed the documentation as recorded by the Scribe Adeel Salas All medical record entries made by the Scribe were at my direction and personally dictated by me. I have reviewed the chart and agree that the record accurately reflects my personal performance of the history, physical exam, medical decision making, and the department course for this patient. I have also personally directed, reviewed, and agree with the discharge instructions and disposition.
[2018-10-16 21:06] LABS: BASO % 0.3 % (0.0-2.0); EOS # 0.1 K/uL (0.0-0.7); EOS % 0.8 % (0.0-4.0); LYMPH # 0.8 K/uL (1.0-4.3); LYMPH % 9.7 % (20.0-40.0); MEAN CORPUSCULAR HEMOGLOBIN 32.8 pg (27.0-31.0); MEAN CORPUSCULAR HGB CONC 32.6 g/dL (33.0-37.0); MEAN PLATELET VOLUME 9.7 fL (7.2-11.7); MONO # 0.9 K/uL (0.0-0.8); MONO % 11.1 % (0.0-10.0); NEUT # 6.3 K/uL (1.8-7.0); NEUT % 78.1 % (50.0-75.0); NRBC % 0.1 % (0.0-2.0); PLATELET COUNT 199 K/uL (130-400); RBC 3.51 Mil/uL (3.80-5.20); RED CELL DISTRIBUTION WIDTH 15.9 % (11.5-14.5)
[2018-10-16 21:08] LABS: HEMOGLOBIN 11.5 g/dL (11.0-16.0); MEAN CELL VOLUME 100.5 fL (81.0-99.0)
[2018-10-16 21:19] LABS: VENOUS BLOOD GAS BASE EXCESS 4.6 mmol/L (0.0-2.0); VENOUS BLOOD GAS PCO2 38 mmHg (40-60); VENOUS BLOOD GAS PO2 34 mm/Hg (30-55); VENOUS BLOOD PH 7.48 (7.32-7.43)
[2018-10-16 21:37] LABS: LYMPHOCYTE 9 % (20-40); MONOCYTE 3 % (0-10); NEUTROPHIL 88 % (50-75); PLATELET ESTIMATE NORMAL (NORMAL); TOTAL CELLS COUNTED 100
[2018-10-16 21:38] LABS: ANISOCYTOSIS SLIGHT; POLYCHROMIC SLIGHT
[2018-10-16 21:53] LABS: ALB/GLOB RATIO 1.2 (1.0-2.1); ALBUMIN 4.5 g/dL (3.5-5.0)
[2018-10-16 21:55] LABS: TROPONIN I 0.015 ng/mL (0.00-0.120)
[2018-10-16] MEDS ORDERED: Vancomycin 1 gm/NS 200 ml 1 GM/200 ML BAG IVPB STA (22:13)
[2018-10-16] MEDS ORDERED: Piperacill/Tazo 3.375gm in Dex 3.375 GM/50 ML BAG IVPB STA (22:13)
[2018-10-16] MEDS ORDERED: Vancomycin 1 GM 1 GM/250 ML BAG IVPB ONE (22:48)
[2018-10-16] MEDS ORDERED: Azithromycin 500mg/250ML NS 500 MG/250 ML BAG IVPB ONE (22:49)
--- NOTE | 2018-10-16 23:57 | CP.PCM.HP ---
Past Patient History - Past Medical History & Family History Past Medical History?: Yes - Past Social History Smoking Status: Never Smoked - CARDIAC Hx Hypercholesterolemia: Yes Hx Hypertension: Yes - PULMONARY Hx Respiratory Disorders: No - HEENT Hx HEENT Problems: Yes (DIABETIC RETINOPATHY) - RENAL Hx Chronic Kidney Disease: Yes (NO DIALYSIS YET) Hx Kidney Stones: Yes (NO SURGERY) - ENDOCRINE/METABOLIC Hx Endocrine Disorders: Yes Hx Diabetes Mellitus Type 1: Yes - HEMATOLOGICAL/ONCOLOGICAL Hx Anemia: Yes - MUSCULOSKELETAL/RHEUMATOLOGICAL Hx Falls: No - GASTROINTESTINAL Hx Gastrointestinal Disorders: No - GENITOURINARY/GYNECOLOGICAL Hx Genitourinary Disorders: Yes (RENAL FAILURE) - PSYCHIATRIC Hx Substance Use: No - SURGICAL HISTORY Hx Surgeries: Yes (left arm fistula) Hx Tubal Ligation: Yes - ANESTHESIA Hx Anesthesia: Yes Hx Anesthesia Reactions: Yes (WOKE UP DURING PROCEDURE) Hx Malignant Hyperthermia: No Meds Allergies/Adverse Reactions: Allergies Allergy/AdvReac Type Severity Reaction Status Date / Time No Known Allergies Allergy Verified 10/16/18 20:34 Results - Vital Signs Recent Vital Signs: Last Vital Signs Temp 102.0 F H 10/16/18 21:00 Pulse 86 10/16/18 20:31 Resp 20 10/16/18 20:31 BP 137/79 10/16/18 20:31 Pulse Ox 94 L 10/16/18 22:47 - Labs Result Diagrams: 10/16/18 21:03 10/16/18 21:03 Labs: Laboratory Results - last 24 hr 10/16/18 10/16/18 10/16/18 21:03 21:03 21:03 WBC 8.0 RBC 3.51 L Hgb 11.5 D Hct 35.3 MCV 100.5 H D MCH 32.8 H MCHC 32.6 L RDW 15.9 H Plt Count 199 MPV 9.7 Neut % (Auto) 78.1 H Lymph % (Auto) 9.7 L [place] % (Auto) 11.1 H Eos % (Auto) 0.8 Baso % (Auto) 0.3 Neut # (Auto) 6.3 Lymph # (Auto) 0.8 L [place] # (Auto) 0.9 H Eos # (Auto) 0.1 Baso # (Auto) 0.0 Neutrophils % (Manual) 88 H Lymphocytes % (Manual) 9 L Monocytes % (Manual) 3 Platelet Estimate Normal Polychromasia Slight Anisocytosis (manual) Slight Macrocytosis (manual) Slight pO2 VBG pH VBG pCO2 VBG HCO3 VBG Total CO2 VBG O2 Sat (Calc) VBG Base Excess VBG Potassium Glucose Lactate Sodium 136 Potassium 5.2 Chloride 96 L Carbon Dioxide 27 Anion Gap 18 BUN 25 H Creatinine 6.2 H Est GFR ( Amer) 8 Est GFR (Non-Af Amer) 7 Random Glucose 255 H D Calcium 9.0 Total Bilirubin 0.7 AST 47 H D ALT 28 Alkaline Phosphatase 90 Troponin I 0.0150 Total Protein 8.3 Albumin 4.5 Globulin 3.8 Albumin/Globulin Ratio 1.2 Venous Blood Potassium Influenza Typ A,B (EIA) Negative for flu a/b 10/16/18 21:10 WBC RBC Hgb Hct MCV MCH MCHC RDW Plt Count MPV Neut % (Auto) Lymph % (Auto) [place] % (Auto) Eos % (Auto) Baso % (Auto) Neut # (Auto) Lymph # (Auto) [place] # (Auto) Eos # (Auto) Baso # (Auto) Neutrophils % (Manual) Lymphocytes % (Manual) Monocytes % (Manual) Platelet Estimate Polychromasia Anisocytosis (manual) Macrocytosis (manual) pO2 34 VBG pH 7.48 H VBG pCO2 38 L VBG HCO3 27.8 VBG Total CO2 29.5 H VBG O2 Sat (Calc) 75.8 H VBG Base Excess 4.6 H VBG Potassium 5.0 Glucose 241 H Lactate 1.6 Sodium 137.0 Potassium Chloride 104.0 Carbon Dioxide Anion Gap BUN Creatinine Est GFR ( Amer) Est GFR (Non-Af Amer) Random Glucose Calcium Total Bilirubin AST ALT Alkaline Phosphatase Troponin I Total Protein Albumin Globulin Albumin/Globulin Ratio Venous Blood Potassium 5.0 Influenza Typ A,B (EIA)
[2018-10-17] MEDS: Albuterol-Ipratrop 3 mg / 0.5 (3 ml) UD INH SCH ×4 (01:58→19:30)
[2018-10-17] MEDS ORDERED: Enoxaparin 40 mg Syringe SC SCH (10:00)
[2018-10-17] MEDS ORDERED: Dextrose 50% SYRINGE Inj (50 ml) IV PRN (10:20)
[2018-10-17] MEDS ORDERED: Glucagon Recombinant 1 mg Inj IM PRN (10:20)
--- NOTE | 2018-10-17 10:29 | RAD ---
Date of service: 10/16/2018 HISTORY: fever COMPARISON: No prior. TECHNIQUE: Chest PA and lateral FINDINGS: LUNGS: Dense confluent opacifications seen in the right hilar region extending to the right mid lung as well as the left mid lung zone suggestive for dense infiltrate. Post treatment follow-up is recommended to ensure resolution and exclude underlying lesion. PLEURA: No significant pleural effusion identified. No pneumothorax apparent. CARDIOVASCULAR: No aortic atherosclerotic calcification present. Normal cardiac size. OSSEOUS STRUCTURES: No significant abnormalities. VISUALIZED UPPER ABDOMEN: Normal. OTHER FINDINGS: None. IMPRESSION: Dense confluent opacifications seen in the right hilar region extending to the right mid lung as well as the left mid lung zone suggestive for dense infiltrate. Post treatment follow-up is recommended to ensure resolution and exclude underlying lesion.
[2018-10-17] MEDS: Azithromycin 500 MG in Sodium Chloride 0.9% 250 ML IVPB SCH (10:51)
--- NOTE | 2018-10-17 12:08 | CP.PCM.CON ---
History of Present Illness - History of Present Illness History of Present Illness: pt is seen and examined during hd, uf as tolerate 1. ESRD 2. HTN 3. DM 4. B/L pneumonia f/u blood c/s, urine c/s, check sputum for gram stain ,c/s, c/w iv abx chek urine for legionella ag, serum mycoplasma ab pt is being dialyzed phenargan dm 5 ml q 6 hrs prn for cough Past Patient History - Past Medical History & Family History Past Medical History?: Yes - Past Social History Smoking Status: Never Smoked - CARDIAC Hx Hypercholesterolemia: Yes Hx Hypertension: Yes - PULMONARY Hx Respiratory Disorders: No - HEENT Hx HEENT Problems: Yes (DIABETIC RETINOPATHY) - RENAL Hx Chronic Kidney Disease: Yes (NO DIALYSIS YET) Hx Kidney Stones: Yes (NO SURGERY) - ENDOCRINE/METABOLIC Hx Endocrine Disorders: Yes Hx Diabetes Mellitus Type 1: Yes - HEMATOLOGICAL/ONCOLOGICAL Hx Anemia: Yes - MUSCULOSKELETAL/RHEUMATOLOGICAL Hx Falls: No - GASTROINTESTINAL Hx Gastrointestinal Disorders: No - GENITOURINARY/GYNECOLOGICAL Hx Genitourinary Disorders: Yes (RENAL FAILURE) - PSYCHIATRIC Hx Substance Use: No - SURGICAL HISTORY Hx Surgeries: Yes (left arm fistula) Hx Tubal Ligation: Yes - ANESTHESIA Hx Anesthesia: Yes Hx Anesthesia Reactions: Yes (WOKE UP DURING PROCEDURE) Hx Malignant Hyperthermia: No Meds Allergies/Adverse Reactions: Allergies Allergy/AdvReac Type Severity Reaction Status Date / Time No Known Allergies Allergy Verified 10/16/18 20:34 - Medications Medications: Current Medications Acetaminophen (Tylenol 325mg Tab) 650 mg PO Q6 PRN PRN Reason: Fever >100.4 F Last Admin: 10/17/18 10:54 Dose: 650 mg Albuterol/Ipratropium (Duoneb 3 Mg/0.5 Mg (3 Ml) Ud) 3 ml INH RQ6 [facility] Last Admin: 10/17/18 08:27 Dose: 3 ml Amlodipine Besylate (Norvasc) 10 mg PO DAILY [facility] Calcium Acetate (Phoslo) 667 mg PO BIDCC [facility] Carvedilol (Coreg) 12.5 mg PO Q12 [facility] Dextrose (Dextrose 50% Inj) 0 ml IV STAT PRN; Protocol PRN Reason: Hypoglycemia Protocol Dextrose (Glutose 15) 0 gm PO ONCE PRN; Protocol PRN Reason: Hypoglycemia Protocol Docusate Sodium (Colace) 100 mg PO TID [facility] Glucagon (Glucagen Diagnostic Kit) 0 mg IM STAT PRN; Protocol PRN Reason: Hypoglycemia Protocol Heparin Sodium (Porcine) (Heparin) 5,000 units SC Q12 [facility] Hydralazine HCl (Apresoline) 25 mg PO Q8 [facility] Azithromycin 500 mg/ Sodium (Chloride) 250 mls @ 250 mls/hr IVPB DAILY [facility]; Protocol Last Admin: 10/17/18 10:51 Dose: 250 mls/hr Ceftriaxone Sodium 1 gm/ (Sodium Chloride) 100 mls @ 100 mls/hr IVPB DAILY [facility]; Protocol Last Admin: 10/17/18 09:49 Dose: 100 mls/hr Dextrose (Dextrose 5% In Water 1000 Ml) 1,000 mls @ 0 mls/hr IV .Q0M PRN; Protocol PRN Reason: Hypoglycemia Protocol Insulin Aspart (Novolog) 0 unit SC ACHS [facility]; Protocol Insulin Glargine (Lantus) 25 unit SC HS [facility] Pantoprazole Sodium (Protonix Inj) 40 mg IVP DAILY [facility] Last Admin: 10/17/18 09:49 Dose: 40 mg Rosuvastatin Calcium (Crestor) 5 mg PO HS [facility] Vitamin B Complex/Vit C/Folic Acid (Nephro-Mary) 1 tab PO DAILY [facility] Results - Vital Signs Recent Vital Signs: Last Vital Signs Temp 100.7 F H 10/17/18 10:14 Pulse 75 10/17/18 07:00 Resp 20 10/17/18 07:00 BP 149/60 10/17/18 07:00 Pulse Ox 94 L 10/17/18 11:25 - Labs Result Diagrams: 10/16/18 21:03 10/16/18 21:03 Labs: Laboratory Results - last 24 hr 10/16/18 10/16/18 10/16/18 21:03 21:03 21:03 WBC 8.0 RBC 3.51 L Hgb 11.5 D Hct 35.3 MCV 100.5 H D MCH 32.8 H MCHC 32.6 L RDW 15.9 H Plt Count 199 MPV 9.7 Neut % (Auto) 78.1 H Lymph % (Auto) 9.7 L [place] % (Auto) 11.1 H Eos % (Auto) 0.8 Baso % (Auto) 0.3 Neut # (Auto) 6.3 Lymph # (Auto) 0.8 L [place] # (Auto) 0.9 H Eos # (Auto) 0.1 Baso # (Auto) 0.0 Neutrophils % (Manual) 88 H Lymphocytes % (Manual) 9 L Monocytes % (Manual) 3 Platelet Estimate Normal Polychromasia Slight Anisocytosis (manual) Slight Macrocytosis (manual) Slight pO2 VBG pH VBG pCO2 VBG HCO3 VBG Total CO2 VBG O2 Sat (Calc) VBG Base Excess VBG Potassium Glucose Lactate Sodium 136 Potassium 5.2 Chloride 96 L Carbon Dioxide 27 Anion Gap 18 BUN 25 H Creatinine 6.2 H Est GFR ( Amer) 8 Est GFR (Non-Af Amer) 7 POC Glucose (mg/dL) Random Glucose 255 H D Calcium 9.0 Total Bilirubin 0.7 AST 47 H D ALT 28 Alkaline Phosphatase 90 Troponin I 0.0150 Total Protein 8.3 Albumin 4.5 Globulin 3.8 Albumin/Globulin Ratio 1.2 Venous Blood Potassium Influenza Typ A,B (EIA) Negative for flu a/b 10/16/18 10/17/18 21:10 11:08 WBC RBC Hgb Hct MCV MCH MCHC RDW Plt Count MPV Neut % (Auto) Lymph % (Auto) [place] % (Auto) Eos % (Auto) Baso % (Auto) Neut # (Auto) Lymph # (Auto) [place] # (Auto) Eos # (Auto) Baso # (Auto) Neutrophils % (Manual) Lymphocytes % (Manual) Monocytes % (Manual) Platelet Estimate Polychromasia Anisocytosis (manual) Macrocytosis (manual) pO2 34 VBG pH 7.48 H VBG pCO2 38 L VBG HCO3 27.8 VBG Total CO2 29.5 H VBG O2 Sat (Calc) 75.8 H VBG Base Excess 4.6 H VBG Potassium 5.0 Glucose 241 H Lactate 1.6 Sodium 137.0 Potassium Chloride 104.0 Carbon Dioxide Anion Gap BUN Creatinine Est GFR ( Amer) Est GFR (Non-Af Amer) POC Glucose (mg/dL) 153 H Random Glucose Calcium Total Bilirubin AST ALT Alkaline Phosphatase Troponin I Total Protein Albumin Globulin Albumin/Globulin Ratio Venous Blood Potassium 5.0 Influenza Typ A,B (EIA)
[2018-10-17] MEDS ORDERED: Paricalcitol 2 mcg/ml Inj IV ONE (12:10)
[2018-10-17] MEDS: (Novolog) Insulin Aspart, Recombinant 100 u/ml 10 ml vial SC SCH ×3 (12:42→21:43)
[2018-10-17] MEDS: Promethazine DM 6.25 mg-15 mg/5 ml Syrup PO PRN (14:54)
--- NOTE | 2018-10-17 19:29 | CP.PCM.PN ---
Subjective - Date & Time of Evaluation Date of Evaluation: 10/17/18 Time of Evaluation: 10:30 - Subjective Subjective: clinically same Objective - Vital Signs/Intake and Output Vital Signs (last 24 hours): Temp Pulse Resp BP Pulse Ox 101 F H 100 H 20 158/88 H 96 10/17/18 18:08 10/17/18 16:30 10/17/18 16:30 10/17/18 16:30 10/17/18 16:30 Intake and Output: 10/17/18 10/18/18 18:59 06:59 Intake Total 500 Balance 500 - Medications Medications: Current Medications Acetaminophen (Tylenol 325mg Tab) 650 mg PO Q6 PRN PRN Reason: Fever >100.4 F Last Admin: 10/17/18 18:08 Dose: 650 mg Albuterol/Ipratropium (Duoneb 3 Mg/0.5 Mg (3 Ml) Ud) 3 ml INH RQ6 [facility] Last Admin: 10/17/18 13:41 Dose: Not Given Amlodipine Besylate (Norvasc) 10 mg PO DAILY [facility] Calcium Acetate (Phoslo) 667 mg PO BIDCC [facility] Last Admin: 10/17/18 18:07 Dose: 667 mg Carvedilol (Coreg) 12.5 mg PO Q12 [facility] Dextrose (Dextrose 50% Inj) 0 ml IV STAT PRN; Protocol PRN Reason: Hypoglycemia Protocol Dextrose (Glutose 15) 0 gm PO ONCE PRN; Protocol PRN Reason: Hypoglycemia Protocol Docusate Sodium (Colace) 100 mg PO TID [facility] Last Admin: 10/17/18 18:07 Dose: 100 mg Epoetin Wild (Procrit) 4,000 unit SC MWF [facility] Glucagon (Glucagen Diagnostic Kit) 0 mg IM STAT PRN; Protocol PRN Reason: Hypoglycemia Protocol Heparin Sodium (Porcine) (Heparin) 5,000 units SC Q12 [facility] Hydralazine HCl (Apresoline) 25 mg PO Q8 [facility] Last Admin: 10/17/18 13:06 Dose: Not Given Azithromycin 500 mg/ Sodium (Chloride) 250 mls @ 250 mls/hr IVPB DAILY [facility]; Protocol Last Admin: 10/17/18 10:51 Dose: 250 mls/hr Ceftriaxone Sodium 1 gm/ (Sodium Chloride) 100 mls @ 100 mls/hr IVPB DAILY [facility]; Protocol Last Admin: 10/17/18 09:49 Dose: 100 mls/hr Dextrose (Dextrose 5% In Water 1000 Ml) 1,000 mls @ 0 mls/hr IV .Q0M PRN; Prot ocol PRN Reason: Hypoglycemia Protocol Insulin Aspart (Novolog) 0 unit SC ACHS [facility]; Protocol Last Admin: 10/17/18 18:08 Dose: 4 units Insulin Glargine (Lantus) 25 unit SC HS [facility] Pantoprazole Sodium (Protonix Inj) 40 mg IVP DAILY [facility] Last Admin: 10/17/18 09:49 Dose: 40 mg Paricalcitol (Zemplar) 2 mcg IV MWF [facility] Promethazine HCl/Dextromethorphan (Phenergan Dm Syrup) 5 ml PO Q6H PRN PRN Reason: Cough Last Admin: 10/17/18 14:54 Dose: 5 ml Rosuvastatin Calcium (Crestor) 5 mg PO [facility] Vitamin B Complex/Vit C/Folic Acid (Nephro-Mary) 1 tab PO DAILY [facility] - Labs Labs: 10/16/18 21:03 10/16/18 21:03 - Constitutional Appears: Well - Head Exam Head Exam: ATRAUMATIC, NORMAL INSPECTION, NORMOCEPHALIC - Eye Exam Eye Exam: EOMI, Normal appearance, PERRL Pupil Exam: NORMAL ACCOMODATION, PERRL - ENT Exam ENT Exam: Mucous Membranes Moist, Normal Exam - Neck Exam Neck Exam: Full ROM, Normal Inspection. absent: Lymphadenopathy - Respiratory Exam Respiratory Exam: Decreased Breath Sounds - Cardiovascular Exam Cardiovascular Exam: REGULAR RHYTHM, +S1, +S2 - GI/Abdominal Exam GI & Abdominal Exam: Soft, Diminished Bowel Sounds - Rectal Exam Rectal Exam: Deferred
[2018-10-17] MEDS: (Lantus) Insulin Glargine, Recombinant SC SCH (21:35)
[2018-10-17] MEDS ORDERED: Home Med 1 UNIT (Atorvastatin [Lipitor] 1 TAB) PO SCH (22:00)
[2018-10-18] MEDS: Promethazine DM 6.25 mg-15 mg/5 ml Syrup PO PRN ×2 (00:01→06:11)
[2018-10-18] MEDS: Albuterol-Ipratrop 3 mg / 0.5 (3 ml) UD INH SCH ×4 (01:10→19:10)
[2018-10-18 05:44] LABS: SQUAMOUS EPITHIAL 3 /hpf (0-5); URINE BACTERIA RARE (<OCC); URINE BILIRUBIN NEGATIVE (NEGATIVE); URINE BLOOD NEGATIVE (NEGATIVE); URINE CLARITY Clear (Clear); URINE COLOR Yellow (YELLOW); URINE GLUCOSE (UA) 3+ mg/dL (Normal); URINE LEUKOCYTE ESTERASE NEG Leu/uL (Negative); URINE PROTEIN 3+ mg/dL (NEGATIVE); URINE UROBILINOGEN NORMAL mg/dL (0.2-1.0)
--- NOTE | 2018-10-18 06:19 | CON ---
DATE: 10/17/2018 RENAL CONSULTATION LOCATION: The patient is located in room 657, bed A. REQUESTED BY: Rakan Wells MD REASON FOR FOLLOWUP: Fever, pneumonia, end-stage renal disease, continuation of the hemodialysis. HISTORY OF PRESENT ILLNESS: Mrs. Wells is a 58-year-old middle-aged female with a past medical history significant for longstanding hypertension, diabetes, diabetic retinopathy, end-stage renal disease, hyperlipidemia, CHF, on hemodialysis three times a week for the last 6 months, who was admitted with the chief complaints of cough, fever since Monday post dialysis. Denies any nausea, vomiting, or diarrhea. Denies any abdominal pain. Denies any chest pain or palpitation. The patient denies any sputum expectoration. No dysuria, no frequency, no edema of the legs. Last hemodialysis on Monday. PAST MEDICAL HISTORY: Significant for longstanding hypertension; diabetes; hyperlipidemia; CHF; end-stage renal disease, on hemodialysis three times a week, Monday, Monday, and Monday; and diabetic retinopathy. PAST SURGICAL HISTORY: Status post left upper extremity AV fistula placement and also cataract surgery. ALLERGIES: NO KNOWN DRUG ALLERGIES. SOCIAL HISTORY: No smoking. No alcohol. No drugs. PERSONAL HISTORY: , and she has a very supportive son. FAMILY HISTORY: Not significant. CURRENT MEDICATIONS: Include as follows: Hydralazine 25 mg p.o. every 8 hours, azithromycin at 500 mg IV piggyback daily, Rocephin 1 g daily, Colace 100 mg p.o. t.i.d., Coreg 12.5 mg p.o. every 12 hours, Crestor 5 mg at bedtime, DuoNeb inhaler, also subcu heparin 5000 units every 12 hours, Nephro-Mary 1 tablet daily, Norvasc 10 mg daily, Phenergan DM syrup 5 mL p.o. every 6 hours, calcium acetate 667 mg 1 tablet p.o. b.i.d., Procrit 4000 units subcu three times a week, Protonix 40 mg IV daily, Tylenol, and Zemplar 2 mcg three times a week, Monday, Monday, and Monday. REVIEW OF SYSTEMS: Significant fever and cough. All other review of systems are reviewed and are negative. PHYSICAL EXAMINATION: VITAL SIGNS: As follows: Blood pressure 143/69, pulse 77, respirations 20, temperature 98.3, and T-max is 102.7. Height is 5 feet 4 inches and weight is 141 pounds. GENERAL: Mrs. Wells is a 58-year-old middle-aged female, moderately built, moderately nourished, not in acute distress. HEENT: Pupils normal, reactive to light and accommodation. Conjunctivae pink. Sclerae anicteric. Tongue is moist. Trachea is midline. LUNGS: Symmetric on both sides. Bilateral breath sounds present. Occasional basal crackles present. CARDIOVASCULAR SYSTEM: [place] at the fifth intercostal space and midclavicular line. S1, S2 audible. No murmur or gallop. ABDOMEN: Normal in appearance. Soft, tympanitic. No guarding. No rigidity. No hepatosplenomegaly. CENTRAL NERVOUS SYSTEM: The patient is alert, awake, and oriented x3. Nonfocal neuro examination. Cranial nerves II through XII grossly intact. Sensory and motor system is within normal limits. EXTREMITIES: No cyanosis, no clubbing, no edema. LABORATORY DATA: Includes as follows: As of 10/16/2018, WBC 8, hemoglobin 11.5, hematocrit is 35.3, platelets 199. Neutrophils 88, lymph is 9, and monos 3. VBG: PH 7.48 and pO2 of 34, pCO2 of 38, and bicarb is 27, saturation 75.8. Sodium 136, potassium 5.2, chloride 96, CO2 of 27, BUN 25, creatinine 6.2, glucose is 255, and calcium is 9. Total bili 0.5, AST 47, ALT 28, alkaline phosphatase 90, troponin 0.015, total protein 8.3, albumin is 4.5. Influenza A and B antibodies negative. OTHER REPORTS: Chest x-ray as of 10/16/2018, impression: Dense confluent opacities seen in the right hilar region extending into the right mid lung as well as the left mid lung zone, suggestive for dense infiltrates. Post-treatment followup is recommended to ensure resolution and exclude underlying lesion. ASSESSMENT AND PLAN: In summary, Mrs. Wells is a 58-year-old middle-aged female with a history of longstanding hypertension, diabetes, hyperlipidemia, end-stage renal disease, diabetic retinopathy, was admitted with persistent cough and also fever for the last two days, and chest x-ray consistent with bilateral pneumonia. 1. End-stage renal disease. Continue hemodialysis three times a week; Monday, Monday, and Monday. 2. Hypertension. 3. Diabetes. 4. Bilateral pneumonia. Check blood culture and urine cultures, and continue intravenous antibiotics; Zithromax and Rocephin, and status post vancomycin 1 g x1 yesterday and status post Zosyn 3.375 g x1 yesterday. Continue to follow her blood cultures. Continue antibiotics as per primary team. Consider infectious disease evaluation. Consider pulmonary evaluation. Continue phosphate binders, calcium acetate 1 tablet by mouth two times daily. Check urine for Legionella antigen and Mycoplasma antibody also and also creatine phosphokinase levels, and we will follow with you. Thank you for allowing me to participate in your patient's care. Chrissie Moore MD
[2018-10-18] MEDS: (Novolog) Insulin Aspart, Recombinant 100 u/ml 10 ml vial SC SCH ×4 (07:45→23:13)
[2018-10-18] MEDS: Multivitamin Vitamin B Complex (Nephro-Vite) Tab PO SCH (09:26)
[2018-10-18] MEDS: Azithromycin 500 MG in Sodium Chloride 0.9% 250 ML IVPB SCH (10:38)
--- NOTE | 2018-10-18 11:47 | CP.PCM.PN ---
Subjective - Date & Time of Evaluation Date of Evaluation: 10/18/18 Time of Evaluation: 11:46 - Subjective Subjective: pt is seen and examined, follow up consult is dictated #[id number] Objective - Vital Signs/Intake and Output Vital Signs (last 24 hours): Temp Pulse Resp BP Pulse Ox 99.4 F 79 20 152/68 H 91 L 10/18/18 09:26 10/18/18 09:26 10/18/18 09:26 10/18/18 09:26 10/18/18 09:26 Intake and Output: 10/18/18 10/18/18 06:59 18:59 Intake Total 240 Balance 240 - Medications Medications: Current Medications Acetaminophen (Tylenol 325mg Tab) 650 mg PO Q6 PRN PRN Reason: Fever >100.4 F Last Admin: 10/18/18 06:11 Dose: 650 mg Albuterol/Ipratropium (Duoneb 3 Mg/0.5 Mg (3 Ml) Ud) 3 ml INH RQ6 [facility] Last Admin: 10/18/18 07:43 Dose: 3 ml Amlodipine Besylate (Norvasc) 10 mg PO DAILY [facility] Last Admin: 10/18/18 09:25 Dose: 10 mg Calcium Acetate (Phoslo) 667 mg PO BIDCC [facility] Last Admin: 10/18/18 09:26 Dose: 667 mg Carvedilol (Coreg) 12.5 mg PO Q12 [facility] Last Admin: 10/18/18 09:26 Dose: 12.5 mg Dextrose (Dextrose 50% Inj) 0 ml IV STAT PRN; Protocol PRN Reason: Hypoglycemia Protocol Dextrose (Glutose 15) 0 gm PO ONCE PRN; Protocol PRN Reason: Hypoglycemia Protocol Docusate Sodium (Colace) 100 mg PO TID [facility] Last Admin: 10/18/18 09:25 Dose: 100 mg Epoetin Wild (Procrit) 4,000 unit SC MWF [facility] Glucagon (Glucagen Diagnostic Kit) 0 mg IM STAT PRN; Protocol PRN Reason: Hypoglycemia Protocol Heparin Sodium (Porcine) (Heparin) 5,000 units SC Q12 [facility] Last Admin: 10/18/18 09:25 Dose: 5,000 units Hydralazine HCl (Apresoline) 25 mg PO Q8 [facility] Last Admin: 10/18/18 06:10 Dose: 25 mg Azithromycin 500 mg/ Sodium (Chloride) 250 mls @ 250 mls/hr IVPB DAILY [facility]; Protocol Last Admin: 10/18/18 10:38 Dose: 250 mls/hr Ceftriaxone Sodium 1 gm/ (Sodium Chloride) 100 mls @ 100 mls/hr IVPB DAILY [facility]; Protocol Last Admin: 10/18/18 09:25 Dose: 100 mls/hr Dextrose (Dextrose 5% In Water 1000 Ml) 1,000 mls @ 0 mls/hr IV .Q0M PRN; Protocol PRN Reason: Hypoglycemia Protocol Insulin Aspart (Novolog) 0 unit SC ACHS [facility]; Protocol Last Admin: 10/18/18 07:45 Dose: Not Given Insulin Glargine (Lantus) 25 unit SC HS [facility] Last Admin: 10/17/18 21:35 Dose: 25 units Pantoprazole Sodium (Protonix Inj) 40 mg IVP DAILY [facility] Last Admin: 10/18/18 09:26 Dose: 40 mg Paricalcitol (Zemplar) 2 mcg IV MWF [facility] Promethazine HCl/Dextromethorphan (Phenergan Dm Syrup) 5 ml PO Q6H PRN PRN Reason: Cough Last Admin: 10/18/18 06:11 Dose: 5 ml Rosuvastatin Calcium (Crestor) 5 mg PO HS [facility] Last Admin: 10/17/18 21:34 Dose: 5 mg Vitamin B Complex/Vit C/Folic Acid (Nephro-Mary) 1 tab PO DAILY [facility] Last Admin: 10/18/18 09:26 Dose: 1 tab - Labs Labs: 10/16/18 21:03 10/16/18 21:03
--- NOTE | 2018-10-18 15:39 | CP.PCM.CON ---
History of Present Illness - History of Present Illness History of Present Illness: dictated Past Patient History - Past Medical History & Family History Past Medical History?: Yes - Past Social History Smoking Status: Never Smoked - CARDIAC Hx Hypercholesterolemia: Yes Hx Hypertension: Yes - PULMONARY Hx Respiratory Disorders: No - HEENT Hx HEENT Problems: Yes (DIABETIC RETINOPATHY) - RENAL Hx Chronic Kidney Disease: Yes Hx Dialysis: Yes Type of Dialysis Access: L AV SHUNT Date of Last Dialysis Treatment: 10/17/18 Hx Kidney Stones: Yes (NO SURGERY) Hx Renal Failure: Yes - ENDOCRINE/METABOLIC Hx Endocrine Disorders: Yes Hx Diabetes Mellitus Type 1: Yes - HEMATOLOGICAL/ONCOLOGICAL Hx Anemia: Yes - MUSCULOSKELETAL/RHEUMATOLOGICAL Hx Falls: No - GASTROINTESTINAL Hx Gastrointestinal Disorders: No - GENITOURINARY/GYNECOLOGICAL Hx Genitourinary Disorders: Yes (RENAL FAILURE) - PSYCHIATRIC Hx Substance Use: No - SURGICAL HISTORY Hx Surgeries: Yes (left arm fistula) Hx Tubal Ligation: Yes - ANESTHESIA Hx Anesthesia: Yes Hx Anesthesia Reactions: Yes (WOKE UP DURING PROCEDURE) Hx Malignant Hyperthermia: No Meds Allergies/Adverse Reactions: Allergies Allergy/AdvReac Type Severity Reaction Status Date / Time No Known Allergies Allergy Verified 10/16/18 20:34 - Medications Medications: Current Medications Acetaminophen (Tylenol 325mg Tab) 650 mg PO Q6 PRN PRN Reason: Fever >100.4 F Last Admin: 10/18/18 06:11 Dose: 650 mg Albuterol/Ipratropium (Duoneb 3 Mg/0.5 Mg (3 Ml) Ud) 3 ml INH RQ6 [facility] Last Admin: 10/18/18 13:20 Dose: 3 ml Amlodipine Besylate (Norvasc) 10 mg PO DAILY [facility] Last Admin: 10/18/18 09:25 Dose: 10 mg Calcium Acetate (Phoslo) 667 mg PO BIDCC [facility] Last Admin: 10/18/18 09:26 Dose: 667 mg Carvedilol (Coreg) 12.5 mg PO Q12 [facility] Last Admin: 10/18/18 09:26 Dose: 12.5 mg Dextrose (Dextrose 50% Inj) 0 ml IV STAT PRN; Protocol PRN Reason: Hypoglycemia Protocol Dextrose (Glutose 15) 0 gm PO ONCE PRN; Protocol PRN Reason: Hypoglycemia Protocol Docusate Sodium (Colace) 100 mg PO TID [facility] Last Admin: 03/07/19 13:29 Dose: 100 mg Epoetin Wild (Procrit) 4,000 unit SC MWF [facility] Glucagon (Glucagen Diagnostic Kit) 0 mg IM STAT PRN; Protocol PRN Reason: Hypoglycemia Protocol Heparin Sodium (Porcine) (Heparin) 5,000 units SC Q12 [facility] Last Admin: 10/18/18 09:25 Dose: 5,000 units Hydralazine HCl (Apresoline) 25 mg PO Q8 [facility] Last Admin: 10/18/18 13:29 Dose: 25 mg Azithromycin 500 mg/ Sodium (Chloride) 250 mls @ 250 mls/hr IVPB DAILY [facility]; Protocol Last Admin: 10/18/18 10:38 Dose: 250 mls/hr Dextrose (Dextrose 5% In Water 1000 Ml) 1,000 mls @ 0 mls/hr IV .Q0M PRN; Protocol PRN Reason: Hypoglycemia Protocol Insulin Aspart (Novolog) 0 unit SC ACHS [facility]; Protocol Last Admin: 10/18/18 12:15 Dose: 3 units Insulin Glargine (Lantus) 25 unit SC [facility] Last Admin: 10/17/18 21:35 Dose: 25 units Pantoprazole Sodium (Protonix Inj) 40 mg IVP DAILY [facility] Last Admin: 10/18/18 09:26 Dose: 40 mg Paricalcitol (Zemplar) 2 mcg IV MWF [facility] Promethazine HCl/Dextromethorphan (Phenergan Dm Syrup) 5 ml PO Q6H PRN PRN Reason: Cough Last Admin: 10/18/18 06:11 Dose: 5 ml Rosuvastatin Calcium (Crestor) 5 mg PO [facility] Last Admin: 10/17/18 21:34 Dose: 5 mg Vitamin B Complex/Vit C/Folic Acid (Nephro-Mary) 1 tab PO DAILY [facility] Last Admin: 10/18/18 09:26 Dose: 1 tab Results - Vital Signs Recent Vital Signs: Last Vital Signs Temp 99.4 F 10/18/18 09:26 Pulse 79 10/18/18 09:26 Resp 20 10/18/18 09:26 BP 152/68 H 10/18/18 09:26 Pulse Ox 91 L 10/18/18 09:26 - Labs Result Diagrams: 10/16/18 21:03 10/16/18 21:03 Labs: Laboratory Results - last 24 hr 10/17/18 10/17/18 10/17/18 06:21 15:56 20:54 POC Glucose (mg/dL) 115 H 204 H 271 H Urine Color Urine Clarity Urine pH Ur Specific [place] Urine Protein Urine Glucose (UA) Urine Ketones Urine Blood Urine Nitrate Urine Bilirubin Urine Urobilinogen Ur Leukocyte Esterase Urine WBC (Auto) Urine RBC (Auto) Ur Squamous Epith Cells Urine Bacteria Ur L.pneumophila Ag 10/18/18 10/18/18 10/18/18 05:30 05:31 06:32 POC Glucose (mg/dL) 130 H Urine Color Yellow Urine Clarity Clear Urine pH 9.0 Ur Specific [place] 1.009 Urine Protein 3+ H Urine Glucose (UA) 3+ H Urine Ketones Negative Urine Blood Negative Urine Nitrate Negative Urine Bilirubin Negative Urine Urobilinogen Normal Ur Leukocyte Esterase Neg Urine WBC (Auto) < 1 Urine RBC (Auto) < 1 Ur Squamous Epith Cells 3 Urine Bacteria Rare Ur L.pneumophila Ag Negative 10/18/18 10:57 POC Glucose (mg/dL) 216 H Urine Color Urine Clarity Urine pH Ur Specific [place] Urine Protein Urine Glucose (UA) Urine Ketones Urine Blood Urine Nitrate Urine Bilirubin Urine Urobilinogen Ur Leukocyte Esterase Urine WBC (Auto) Urine RBC (Auto) Ur Squamous Epith Cells Urine Bacteria Ur L.pneumophila Ag
[2018-10-18] MEDS ORDERED: Albuterol-Ipratrop 3 mg / 0.5 (3 ml) UD INH STA (16:37)
--- NOTE | 2018-10-18 16:43 | PCM.RRT ---
<Eileen Fuentes - Last Filed: 10/18/18 20:16> [facility] Nurses Assessment - Situation Date: 10/18/18 Time COLOR MIXER was called: 16:26 [facility]ER Responder Arrival Time:: 16:30 [facility]ER Location:: Med/Surg [facility] Reason for Call: O2 Saturation below 90% [facility] Called By: RN - Constitutional Appears: Other (moderate acute distress ) - Head Head Exam: ATRAUMATIC, NORMAL INSPECTION - Eyes Eye Exam: EOMI, Normal appearance, PERRL - Respiratory Exam Respiratory Exam: Decreased Breath Sounds (Decreased breath sounds on right lung upper, middle, and lower lobe) - Cardiovascular Exam Cardiovascular Exam: REGULAR RHYTHM, RRR, +S1, +S2. absent: JVD - GI/Abdominal Exam GI & Abdominal Exam: Soft, Normal Bowel Sounds. absent: Tenderness - Neurological Exam Neurological Exam: Alert, Awake, Oriented x3 - Extremities Exam Extremities Exam: absent: Pedal Edema Plan - Assessment of Findings&Treatment Plan Rapid response was called by the nurse for oxygen desaturation and patient in mild respiratory distress. 58 year old female with PMHx of ESRD on hemodialysis, HTN, and DM admitted for pneumonia on 10/16/18. Chest x-ray on admission revealed dense confluent opacifications seen in right hilar region. Upon arrival patient was noted to have difficulty breathing and she stated, "she felt like she couldn't catch her breath." She also endorsed a non-productive cough otherwise no other complaints. Patient's vitals on arrival were B/P: 152/77; HR 77; O2 86% on 2L NC. Patient was then placed on a nonrebreather mask, repeat chest x-ray, duoneb treatment, cbc, cmp, mag, phos, blood culture, urine culture, 1g of Vanco given. Repeat chest xray showed Mild cardiomegaly. Increasing dense left upper lobe and right mid to lower lobe consolidative masslike opacities; post treatment follow-up recommended in order to exclude possibility of underlying malignant neoplasm. Probable trace right pleural effusion. Spoke with patient's infectious disease physician, Dr. Lnig who agreed to continue the Vancomycin 500mg IV with dialysis MWF. She also recommended a Vancomycin level for 10/19/18. Patient's vitals were repeated: B/P 158/86; HR 83; O2 97% on nonrebreather mask. Patient's admitting physician was also notified. <Vasyl Wells - Last Filed: 10/19/18 19:10> [facility] [facility]ER Nurses Assessment - Vital Signs Vital Signs: Rapid Response Vital Sign Blood Pressure 152/77 Pulse Rate 77 Respiratory Rate 24 Temperature 101.2 F Oxygen Saturation 86 - Vital Signs at end of [facility]OR [facility]ER Vital Signs at end of COLOR MIXER: Rapid Response End Vital Sign Blood Pressure 158/86 Pulse Rate 83 Respiratory Rate 20 O2 Sat by Pulse Oximetry 97 Attending/Attestation - Attestation I have personally seen and examined this patient.: Yes I have fully participated in the care of the patient.: Yes I have reviewed all pertinent clinical information, including history, physical exam and plan: Yes Notes (Text): 10/19/18 19:10 This is a late entry. Care of this patient was gone over in detail with resident. Vasyl Wells D.O.
[2018-10-18] MEDS ORDERED: Vancomycin 1 gm/NS 200 ml 1 GM/200 ML BAG IVPB STA (16:44)
--- NOTE | 2018-10-18 17:09 | CP.PCM.PN ---
Subjective - Date & Time of Evaluation Date of Evaluation: 10/18/18 Time of Evaluation: 12:00 - Subjective Subjective: clinically same Objective - Vital Signs/Intake and Output Vital Signs (last 24 hours): Temp Pulse Resp BP Pulse Ox 101.3 F H 84 20 155/57 H 84 L 10/18/18 15:35 10/18/18 15:35 10/18/18 15:35 10/18/18 15:35 10/18/18 15:35 Intake and Output: 10/18/18 10/18/18 06:59 18:59 Intake Total 240 Balance 240 - Medications Medications: Current Medications Acetaminophen (Tylenol 325mg Tab) 650 mg PO Q6 PRN PRN Reason: Fever >100.4 F Last Admin: 10/18/18 06:11 Dose: 650 mg Albuterol/Ipratropium (Duoneb 3 Mg/0.5 Mg (3 Ml) Ud) 3 ml INH RQ6 [facility] Last Admin: 10/18/18 13:20 Dose: 3 ml Amlodipine Besylate (Norvasc) 10 mg PO DAILY [facility] Last Admin: 10/18/18 09:25 Dose: 10 mg Calcium Acetate (Phoslo) 667 mg PO BIDCC [facility] Last Admin: 10/18/18 09:26 Dose: 667 mg Carvedilol (Coreg) 12.5 mg PO Q12 [facility] Last Admin: 10/18/18 09:26 Dose: 12.5 mg Dextrose (Dextrose 50% Inj) 0 ml IV STAT PRN; Protocol PRN Reason: Hypoglycemia Protocol Dextrose (Glutose 15) 0 gm PO ONCE PRN; Protocol PRN Reason: Hypoglycemia Protocol Docusate Sodium (Colace) 100 mg PO TID [facility] Last Admin: 10/18/18 13:29 Dose: 100 mg Epoetin Wild (Procrit) 4,000 unit SC MWF [facility] Glucagon (Glucagen Diagnostic Kit) 0 mg IM STAT PRN; Protocol PRN Reason: Hypoglycemia Protocol Heparin Sodium (Porcine) (Heparin) 5,000 units SC Q12 [facility] Last Admin: 10/18/18 09:25 Dose: 5,000 units Hydralazine HCl (Apresoline) 25 mg PO Q8 [facility] Last Admin: 10/18/18 13:29 Dose: 25 mg Azithromycin 500 mg/ Sodium (Chloride) 250 mls @ 250 mls/hr IVPB DAILY [facility]; Protocol Last Admin: 10/18/18 10:38 Dose: 250 mls/hr Dextrose (Dextrose 5% In Water 1000 Ml) 1,000 mls @ 0 mls/hr IV .Q0M PRN; Protocol PRN Reason: Hypoglycemia Protocol Piperacillin Sod/Tazobactam (Sod 2.25 gm/ Sodium Chloride) 100 mls @ 200 mls/hr IVPB Q8H [facility]; Protocol Vancomycin/Sodium Chloride (Vancomycin 1 Gm/Ns 200 Ml) 1 gm in 200 mls @ 133 mls/hr IVPB STAT [facility]; Protocol Stop: 10/18/18 18:14 Vancomycin HCl/Dextrose (Vancocin) 500 mg in 100 mls @ 67 mls/hr IVPB MWF [facility]; Protocol Stop: 10/24/18 09:01 Insulin Aspart (Novolog) 0 unit SC [facility]; Protocol Last Admin: 10/18/18 12:15 Dose: 3 units Insulin Glargine (Lantus) 25 unit SC [facility] Last Admin: 10/17/18 21:35 Dose: 25 units Oseltamivir Phosphate (Tamiflu Susp) 30 mg PO BID [facility]; Protocol Stop: 10/23/18 15:40 Pantoprazole Sodium (Protonix Inj) 40 mg IVP DAILY [facility] Last Admin: 10/18/18 09:26 Dose: 40 mg Paricalcitol (Zemplar) [address] [facility] Promethazine HCl/Dextromethorphan (Phenergan Dm Syrup) 5 ml PO Q6H PRN PRN Reason: Cough Last Admin: 10/18/18 06:11 Dose: 5 ml Rosuvastatin Calcium (Crestor) 5 mg PO [facility] Last Admin: 10/17/18 21:34 Dose: 5 mg Vitamin B Complex/Vit C/Folic Acid (Nephro-Mary) 1 tab PO DAILY [facility] Last Admin: 10/18/18 09:26 Dose: 1 tab - Labs Labs: 10/16/18 21:03 10/16/18 21:03
[2018-10-18 17:47] LABS: LYMPH # 0.8 K/uL (1.0-4.3); MONO % 10.1 % (0.0-10.0)
[2018-10-18 17:53] LABS: BASO # 0.1 K/uL (0.0-0.2); EOS % 0.9 % (0.0-4.0); LYMPH % 15.4 % (20.0-40.0); MEAN CELL VOLUME 101.9 fL (81.0-99.0); MEAN CORPUSCULAR HGB CONC 32.4 g/dL (33.0-37.0); MEAN PLATELET VOLUME 10.2 fL (7.2-11.7); MONO # 0.6 K/uL (0.0-0.8); NEUT % 72.6 % (50.0-75.0); RBC 2.79 Mil/uL (3.80-5.20); RED CELL DISTRIBUTION WIDTH 15.6 % (11.5-14.5); WHITE BLOOD COUNT 5.4 K/uL (4.8-10.8)
--- NOTE | 2018-10-18 18:01 | RAD ---
HISTORY: shortness of breath COMPARISON: Chest x-ray performed 10/16/18 TECHNIQUE: Chest, one view. FINDINGS: LUNGS: Increasing dense left upper lobe and right mid to lower lobe consolidative masslike opacities. Probable trace right pleural effusion. No definite pneumothorax. CARDIOVASCULAR: Mild cardiomegaly. OSSEOUS STRUCTURES: Degenerative changes. VISUALIZED UPPER ABDOMEN: Unremarkable. OTHER FINDINGS: None. IMPRESSION: Mild cardiomegaly. Increasing dense left upper lobe and right mid to lower lobe consolidative masslike opacities; post treatment follow-up recommended in order to exclude possibility of underlying malignant neoplasm. Probable trace right pleural effusion.
[2018-10-18 18:03] LABS: HEMOGLOBIN 9.2 g/dL (11.0-16.0)
[2018-10-18 18:15] LABS: ALB/GLOB RATIO 1.1 (1.0-2.1); ALBUMIN 3.6 g/dL (3.5-5.0); CALCIUM 8.3 mg/dl (8.6-10.4)
[2018-10-18] MEDS: Oseltamivir 6 MG/ML PO SCH (18:19)
[2018-10-18 18:26] LABS: CK-MB 0.68 ng/mL (0.0-3.38); TROPONIN I 0.094 ng/mL (0.00-0.120)
[2018-10-18] MEDS: Piperacillin/Tazobact 2.25 GM in Sodium Chloride 100 ML IVPB SCH (20:11)
--- NOTE | 2018-10-18 21:22 | CARD ---
APPROVED REPORT Date of service: 10/16/2018 EKG Measurement Heart [id number] HI [id number] <Conclusion> Normal sinus rhythm Normal ECG
[2018-10-18] MEDS: (Lantus) Insulin Glargine, Recombinant SC SCH (23:12)
[2018-10-19] MEDS: Albuterol-Ipratrop 3 mg / 0.5 (3 ml) UD INH SCH ×4 (01:14→20:03)
[2018-10-19] MEDS: Piperacillin/Tazobact 2.25 GM in Sodium Chloride 100 ML IVPB SCH ×3 (01:21→17:18)
--- NOTE | 2018-10-19 02:11 | PN ---
DATE: 10/18/2018 FOLLOW-UP RENAL CONSULTATION LOCATION: The patient is located in room 654 bed B. REQUESTED BY: Rakan Wells MD REASON FOR FOLLOWUP: End-stage renal disease for continuation of hemodialysis and pneumonia. SUBJECTIVE: Mrs. Wells is a 58-year-old middle-aged female with a past medical history significant for longstanding hypertension, diabetes, diabetic retinopathy, status post gastric surgery, CHF, end-stage renal disease on hemodialysis three times a week Monday, Monday, Monday, was admitted with chief complaints of fever, cough and mild shortness of breath since Monday after dialysis. The patient is not in acute distress. Feels slightly better today. No chest pain or persistent cough. No swelling of the legs. OBJECTIVE: VITAL SIGNS: Blood pressure this morning 152/68, pulse 79, respiration 20, temperature 99.4, saturation 91%. T-max is 102.7 early this morning. Height 5 feet 4 inches, weight is 141 pounds. GENERAL: Mrs. Wells is a 58-year-old middle-aged female, moderately built, moderately nourished, not in distress. HEENT: Pupils normal and reactive to light and accommodation. Conjunctivae pink. Sclerae anicteric. Tongue is moist and trachea is midline. LUNGS: Symmetric on both sides. Bilateral breath sounds present. No crackles. CVS: [place] at the fifth intercostal space, midclavicular line. S1, S2 audible. No murmur or gallop. ABDOMEN: Normal in appearance, soft, tympanitic. No guarding. No rigidity. No hepatosplenomegaly. HEMMER AUTOMATIC: The patient is alert, awake and oriented x3. Nonfocal neuro examination. Cranial nerves II-XII grossly intact. Sensory and motor system is within normal limits. EXTREMITIES: No cyanosis, no clubbing or edema. CURRENT MEDICATIONS: Include as follows, hydralazine 25 mg p.o. every 8 hours, azithromycin 500 mg daily, Colace 100 mg p.o. t.i.d., Coreg 12.5 mg every 12 hours, Crestor 5 mg, DuoNeb inhaler, subcu heparin 5000 every 12 hours, Lantus 25 units subcu at bedtime, Nephro-Mary 1 tablet daily, amlodipine 10 mg daily, NovoLog for sliding scale, Phenergan DM 5 ml every 6 hours p.r.n., Zosyn 2.5 g IV every 8 hours, Procrit 4000 units three times a week, Protonix, Tamiflu 30 mg p.o. b.i.d., Tylenol, vancomycin 500 mg three times a week, and Zemplar 2 mcg a week. LABORATORY DATA: Her lab data include as follows as of 10/18/2018, WBC 5.4, hemoglobin 9.2, hematocrit is 28.5, platelet 165. Sodium 136, potassium 4.3, chloride 100, CO2 27, BUN 28, creatinine 5.5, glucose 255, and lactic acid 1. Calcium 8.3, phosphorus 3, magnesium 2. Total bili 0.8, AST 44, ALT 238, alkaline phosphatase 46, CPK 411 and troponin 0.094, total protein 6.7, albumin is 3.6. Urinalysis, yellow clear, pH 9, specific 1.009, protein 3+, glucose 3+, ketone negative, blood negative, nitrite negative, bilirubin negative, urobilinogen normal, leukocyte esterase negative, and wbc less than 1, RBC less than 1. Bacteria rare and urine for Legionella antigen is negative. Influenza A and B antibodies negative as of 10/16/2018. ASSESSMENT: In summary, Mrs. Wells is a 58-year-old female with hypertension, diabetes, diabetic retinopathy, end-stage renal disease, hyperlipidemia, was admitted with cough and fever since Monday post dialysis with bilateral infiltrates. PLAN: 1. End-stage renal disease. Continue hemodialysis three times a week, Monday, Monday and Monday. 2. Pneumonia, bilateral. Continue antibiotics as per ID recommendations, vanco, Zosyn, azithromycin and Tamiflu. 3. Diabetes. Continue monitor sugars and adjust insulin as per Accu-Cheks. 4. Hypertension. Blood pressure is stable. Continue her current blood pressure medication amlodipine, hydralazine and metoprolol. We will follow with you. Thank you for allowing me to participate in your patient's care for HT tomorrow morning. Chrissie Moore MD [facility] # [phone]
[2018-10-19 04:34] LABS: SQUAMOUS EPITHIAL 23 /hpf (0-5); URINE BILIRUBIN NEGATIVE (NEGATIVE); URINE CLARITY Hazy (Clear); URINE COLOR Yellow (YELLOW); URINE GLUCOSE (UA) 3+ mg/dL (Normal); URINE LEUKOCYTE ESTERASE NEG Leu/uL (Negative); URINE PROTEIN 3+ mg/dL (NEGATIVE); URINE UROBILINOGEN NORMAL mg/dL (0.2-1.0)
[2018-10-19 04:38] LABS: URINE BLOOD NEGATIVE (NEGATIVE)
--- NOTE | 2018-10-19 06:18 | CON ---
DATE: 10/18/2018 HISTORY OF PRESENT ILLNESS: This patient came on 10/16/2018, and she was admitted with fever. She is 58-year-old. She has end-stage renal disease and has been on hemodialysis Monday, Monday and Monday. She complains of having mild fever, body aches and nonproductive cough since three days. She says on Monday when she went for dialysis, after that she started to feel cold and she started to cough. She denies any sore throat, denies any problems with the fistula. She does have a fistula on the arm which is used for hemodialysis and she denied any sore throat. Denied any headaches. She does complain of cough, she is not bringing up any phlegm and she says she has been coughing so much that her upper abdomen is hurting. She denies any shortness of breath, headaches, sore throat, leg swelling. ALLERGIES: SHE IS NOT ALLERGIC TO ANY MEDICINES. SOCIAL HISTORY: Negative for smoking or drinking or any drug abuse. She lives with her family. PAST SURGICAL HISTORY: She said she had a surgery for the uterus as it sounded because she speaks [place]jar[place] dialect, that is what I made out of it. Otherwise, she has history of anemia, hypertension, high cholesterol, kidney stones and chronic kidney disease. FAMILY HISTORY: She lives with her son, [id number] and . REVIEW OF SYSTEMS: She did come with a fever. She denies any throat pain. Denies any chest pain. No shortness of breath. Did complain of some upper abdominal pain due to multiple spasms of coughing but she was not bringing out anything. She has no rash. No headache. 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 I had already put her on Zosyn and Tamiflu because her story sounds like she might have had a flu-like syndrome before but her x-ray showed bilateral infiltrates, so I advanced the antibiotic to Zosyn and we added vancomycin after the PATIENT CARE SECRETARY. PHYSICAL EXAMINATION: VITAL SIGNS: I found her temperature, after that she spiked to 101.3, pulse 84, blood pressure 155/57, respirations are 20. HEENT: Head is atraumatic, normocephalic. NECK: Supple. LUNGS: Decreased breath sounds bilaterally. HEART: S1, S2, is regular. ABDOMEN: Soft, nontender. No guarding, no rigidity present. EXTREMITIES: Have no edema. IMPRESSION: Impression is that this patient has bilateral pneumonia with sepsis and had a rapid response therapy right now and has end-stage renal disease. PLAN: The patient dropped her saturation to 86%. So, at this time she was started on vancomycin which I agree with, we gave 1 g today and we will give vancomycin 500 mg after each dialysis and she is started on DuoNeb and she is on her cardiac meds. We have ordered already for serology. Influenza was negative, however. Legionella is negative to other influenza antibodies in the blood for tomorrow. We will follow. Karey Ling MD
[2018-10-19 07:48] LABS: BASO % 0.7 % (0.0-2.0); EOS # 0.1 K/uL (0.0-0.7); EOS % 2.2 % (0.0-4.0); HEMOGLOBIN 8.8 g/dL (11.0-16.0); LYMPH # 1.3 K/uL (1.0-4.3); LYMPH % 23.6 % (20.0-40.0); MEAN CELL VOLUME 102.4 fL (81.0-99.0); MEAN CORPUSCULAR HEMOGLOBIN 34.5 pg (27.0-31.0); MEAN CORPUSCULAR HGB CONC 33.7 g/dL (33.0-37.0); MONO # 0.7 K/uL (0.0-0.8); MONO % 13.3 % (0.0-10.0); NEUT # 3.2 K/uL (1.8-7.0); NEUT % 60.2 % (50.0-75.0); NRBC % 0.1 % (0.0-2.0); RBC 2.55 Mil/uL (3.80-5.20); RED CELL DISTRIBUTION WIDTH 16.1 % (11.5-14.5); WHITE BLOOD COUNT 5.3 K/uL (4.8-10.8)
[2018-10-19] MEDS: (Novolog) Insulin Aspart, Recombinant 100 u/ml 10 ml vial SC SCH ×4 (08:00→21:34)
[2018-10-19 08:08] LABS: ALB/GLOB RATIO 1.1 (1.0-2.1); ALBUMIN 3.4 g/dL (3.5-5.0); CALCIUM 8.4 mg/dl (8.6-10.4)
[2018-10-19] MEDS ORDERED: Vancomycin 500mg/D5W 100 ml 500 MG/100 ML BAG IVPB SCH (09:00)
[2018-10-19] MEDS ORDERED: Epoetin Alfa 4000 UNIT/ML Inj SC SCH (09:00)
[2018-10-19] MEDS: Azithromycin 500 MG in Sodium Chloride 0.9% 250 ML IVPB SCH (09:10)
[2018-10-19] MEDS: Oseltamivir 6 MG/ML PO SCH ×2 (10:00→17:35)
--- NOTE | 2018-10-19 10:14 | CT ---
Date of service: 10/19/2018 PROCEDURE: CT Chest without contrast HISTORY: mass like opacity on cxr COMPARISON: None available. TECHNIQUE: Contiguous axial images were obtained through the chest without intravenous contrast enhancement. Sagittal and coronal reconstructions were performed. Radiation dose (DLP): 483.98 mGy-cm. This CT exam was performed using one or more of the following dose reduction techniques: Automated exposure control, adjustment of the mA and/or kV according to patient size, and/or use of iterative reconstruction technique. FINDINGS: LUNGS: Extensive multi lobar consolidation and ground-glass opacities bilaterally. No discrete pulmonary mass. This is most extensive in the left upper lobe and in the right lower lobe. Differential diagnosis includes pulmonary edema, multi lobar pneumonia a, pulmonary hemorrhage or less likely neoplastic etiology. MEDIASTINUM: Unremarkable thoracic aorta. No aneurysm. Cardiomegaly. Main pulmonary artery unremarkable. No vascular congestion. No lymphadenopathy. There is atherosclerotic calcification of the thoracic aorta. PLEURA: Small bilateral pleural effusion. BONES: No fracture. No destructive lesion. UPPER ABDOMEN: Grossly unremarkable. OTHER FINDINGS: None. IMPRESSION: Extensive bilateral multi lobar pulmonary opacities. Possible bilateral pneumonia. Rule out pulmonary edema. See above. Small bilateral pleural effusion. Mild cardiomegaly. No other significant abnormality.
[2018-10-19] MEDS: Paricalcitol 2 mcg/ml Inj IV SCH (10:33)
[2018-10-19] MEDS ORDERED: EPOETIN ALFA 4,000 UNIT/ML ML Dialysis SC SCH (10:45)
[2018-10-19] MEDS: Promethazine DM 6.25 mg-15 mg/5 ml Syrup PO PRN (13:53)
[2018-10-19] MEDS: Multivitamin Vitamin B Complex (Nephro-Vite) Tab PO SCH (14:07)
--- NOTE | 2018-10-19 14:59 | CP.PCM.CON ---
History of Present Illness - History of Present Illness History of Present Illness: Pulmonary Evaluation The Patient was seen and examined at the bedside, Medical records reviewed, and management issues were discussed and formulated with the house staff. 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 October 18 for hypoxemia and oxygen drop below 90% She had a stat chest x-ray and CT scan of the chest without contrast revealed extensive bilateral multilobar opacities very likely bilateral pneumonia with possible component of acute pulmonary edema, small bilateral pleural effusion, mild cardiomegaly, bilateral groundglass opacity, no pneumothorax On on exam the patient has been in mild respiratory distress she is tachypneic and complaining of shortness of breath she is she is alert awake oriented x3, vitals as follow febrile to 101.2 F, respiratory rate 24, heart rate 77, blood pressure 152/77 and sat is 86% Pt receiving stat to review and 1 g of vancomycin given stat Review of Systems - Constitutional Constitutional: Anorexia, Fatigue. absent: Chills, Fever - Cardiovascular Cardiovascular: absent: Chest Pain, Chest Pain at Rest, Chest Pain with Activity, Claudication - Respiratory Respiratory: Cough, Dyspnea, Dyspnea on Exertion. absent: Hemoptysis, Wheezing, Snoring, Stridor - Gastrointestinal Gastrointestinal: Abdominal Pain. absent: Coffee Ground Emesis, Hematochezia, Nausea Past Patient History - Past Medical History & Family History Past Medical History?: Yes - Past Social History Smoking Status: Never Smoked - CARDIAC Hx Hypercholesterolemia: Yes Hx Hypertension: Yes - PULMONARY Hx Respiratory Disorders: No - HEENT Hx HEENT Problems: Yes (DIABETIC RETINOPATHY) - RENAL Hx Chronic Kidney Disease: Yes Hx Dialysis: Yes Type of Dialysis Access: L AV SHUNT Date of Last Dialysis Treatment: 10/17/18 Hx Kidney Stones: Yes (NO SURGERY) Hx Renal Failure: Yes - ENDOCRINE/METABOLIC Hx Endocrine Disorders: Yes Hx Diabetes Mellitus Type 1: Yes - HEMATOLOGICAL/ONCOLOGICAL Hx Anemia: Yes - MUSCULOSKELETAL/RHEUMATOLOGICAL Hx Falls: No - GASTROINTESTINAL Hx Gastrointestinal Disorders: No - GENITOURINARY/GYNECOLOGICAL Hx Genitourinary Disorders: Yes (RENAL FAILURE) - PSYCHIATRIC Hx Substance Use: No - SURGICAL HISTORY Hx Surgeries: Yes (left arm fistula) Hx Tubal Ligation: Yes - ANESTHESIA Hx Anesthesia: Yes Hx Anesthesia Reactions: Yes (WOKE UP DURING PROCEDURE) Hx Malignant Hyperthermia: No Meds Allergies/Adverse Reactions: Allergies Allergy/AdvReac Type Severity Reaction Status Date / Time No Known Allergies Allergy Verified 10/16/18 20:34 - Medications Medications: Current Medications Acetaminophen (Tylenol 325mg Tab) 650 mg PO Q6 PRN PRN Reason: Fever >100.4 F Last Admin: 10/19/18 13:54 Dose: 650 mg Albuterol/Ipratropium (Duoneb 3 Mg/0.5 Mg (3 Ml) Ud) 3 ml INH RQ6 [facility] Last Admin: 10/19/18 13:29 Dose: Not Given Amlodipine Besylate (Norvasc) 10 mg PO DAILY [facility] Last Admin: 10/19/18 14:05 Dose: 10 mg Calcium Acetate (Phoslo) 667 mg PO BIDCC [facility] Last Admin: 10/19/18 09:07 Dose: 667 mg Carvedilol (Coreg) 12.5 mg PO Q12 [facility] Last Admin: 10/19/18 10:00 Dose: Not Given Dextrose (Dextrose 50% Inj) 0 ml IV STAT PRN; Protocol PRN Reason: Hypoglycemia Protocol Dextrose (Glutose 15) 0 gm PO ONCE PRN; Protocol PRN Reason: Hypoglycemia Protocol Docusate Sodium (Colace) 100 mg PO TID [facility] Last Admin: 10/19/18 14:03 Dose: 100 mg Epoetin Wild (Procrit) 4,000 unit SC MWF [facility] Last Admin: 10/19/18 11:33 Dose: 4,000 unit Glucagon (Glucagen Diagnostic Kit) 0 mg IM STAT PRN; Protocol PRN Reason: Hypoglycemia Protocol Heparin Sodium (Porcine) (Heparin) 5,000 units SC Q12 [facility] Last Admin: 10/19/18 10:00 Dose: Not Given Hydralazine HCl (Apresoline) 25 mg PO Q8 [facility] Last Admin: 10/19/18 14:02 Dose: 25 mg Azithromycin 500 mg/ Sodium (Chloride) 250 mls @ 250 mls/hr IVPB DAILY [facility]; Protocol Last Admin: 10/19/18 09:10 Dose: 250 mls/hr Dextrose (Dextrose 5% In Water 1000 Ml) 1,000 mls @ 0 mls/hr IV .Q0M PRN; Protocol PRN Reason: Hypoglycemia Protocol Piperacillin Sod/Tazobactam (Sod 2.25 gm/ Sodium Chloride) 100 mls @ 200 mls/hr IVPB Q8H [facility]; Protocol Last Admin: 10/19/18 09:00 Dose: 200 mls/hr Vancomycin HCl 500 mg/ Sodium (Chloride) 100 mls @ 67 mls/hr [facility]; Protocol Stop: 10/24/18 09:01 Insulin Aspart (Novolog) 0 unit SC [facility]; Protocol Last Admin: 10/19/18 11:30 Dose: Not Given Insulin Glargine (Lantus) 25 unit SC [facility] Last Admin: 10/18/18 23:12 Dose: 25 units Oseltamivir Phosphate (Tamiflu Susp) 30 mg PO BID [facility]; Protocol Stop: 10/23/18 15:40 Last Admin: 10/19/18 10:00 Dose: Not Given Pantoprazole Sodium (Protonix Ec Tab) 40 mg PO DAILY [facility] Paricalcitol (Zemplar) 2 mcg IV [facility] Last Admin: 10/19/18 10:33 Dose: 2 mcg Promethazine HCl/Dextromethorphan (Phenergan Dm Syrup) 5 ml PO Q6H PRN PRN Reason: Cough Last Admin: 10/19/18 13:53 Dose: 5 ml Rosuvastatin Calcium (Crestor) 5 mg PO [facility] Last Admin: 10/18/18 23:12 Dose: 5 mg Vitamin B Complex/Vit C/Folic Acid (Nephro-Mary) 1 tab PO DAILY [facility] Last Admin: 10/19/18 14:07 Dose: 1 tab Physical Exam - Constitutional Appears: In Acute Distress (Mild Tachypnea) - Head Exam Head Exam: ATRAUMATIC, NORMAL INSPECTION, NORMOCEPHALIC - Eye Exam Eye Exam: EOMI, Normal appearance Pupil Exam: NORMAL ACCOMODATION - ENT Exam ENT Exam: Mucous Membranes Moist, Normal Exam - Neck Exam Neck exam: Positive for: Normal Inspection - Respiratory Exam Respiratory Exam: Prolonged Expiratory Phase, Rales, Rhonchi, Respiratory Distress. absent: Accessory Muscle Use, Clear to Auscultation Bilateral, Wheezes, NORMAL BREATHING PATTERN - Cardiovascular Exam Cardiovascular Exam: RRR, +S1, +S2. absent: Bradycardia, Tachycardia, Diastolic murmur, JVD, Systolic Murmur Results - Vital Signs Recent Vital Signs: Last Vital Signs Temp 99.2 F 10/19/18 13:15 Pulse 71 10/19/18 13:15 Resp 19 10/19/18 13:15 BP 126/70 10/19/18 13:15 Pulse Ox 95 10/19/18 13:15 - Labs Result Diagrams: 10/22/18 10:05 10/22/18 10:05 Labs: Laboratory Results - last 24 hr 10/18/18 10/18/18 10/18/18 17:42 17:42 19:49 WBC 5.4 RBC 2.79 L Hgb 9.2 L D Hct 28.5 L MCV 101.9 H MCH 33.0 H MCHC 32.4 L RDW 15.6 H Plt Count 165 MPV 10.2 Neut % (Auto) 72.6 Lymph % (Auto) 15.4 L Bureau % (Auto) 10.1 H Eos % (Auto) 0.9 Baso % (Auto) 1.0 Neut # (Auto) 4.0 Lymph # (Auto) 0.8 L Bureau # (Auto) 0.6 Eos # (Auto) 0.0 Baso # (Auto) 0.1 Sodium 136 Potassium 4.3 Chloride 100 Carbon Dioxide 27 Anion Gap 14 BUN 28 H Creatinine 5.5 H Est GFR ( Amer) 10 Est GFR (Non-Af Amer) 8 POC Glucose (mg/dL) Random Glucose 255 H Lactic Acid 1.0 Calcium 8.3 L Phosphorus 3.0 Magnesium 2.0 Total Bilirubin 0.8 AST 44 H ALT 38 Alkaline Phosphatase 76 Total Creatine Kinase 411 H CK-MB (Mass) 0.68 Troponin I 0.0940 Total Protein 6.7 Albumin 3.6 Globulin 3.2 Albumin/Globulin Ratio 1.1 Urine Color Urine Clarity Urine pH Ur Specific [place] Urine Protein Urine Glucose (UA) Urine Ketones Urine Blood Urine Nitrate Urine Bilirubin Urine Urobilinogen Ur Leukocyte Esterase Urine WBC (Auto) Urine RBC (Auto) Ur Squamous Epith Cells Random Vancomycin 10/19/18 10/19/18 10/19/18 04:26 06:14 07:39 WBC RBC Hgb Hct MCV MCH MCHC RDW Plt Count MPV Neut % (Auto) Lymph % (Auto) Bureau % (Auto) Eos % (Auto) Baso % (Auto) Neut # (Auto) Lymph # (Auto) Bureau # (Auto) Eos # (Auto) Baso # (Auto) Sodium Potassium Chloride Carbon Dioxide Anion Gap BUN Creatinine Est GFR ( Amer) Est GFR (Non-Af Amer) POC Glucose (mg/dL) 181 H Random Glucose Lactic Acid Calcium Phosphorus Magnesium Total Bilirubin AST ALT Alkaline Phosphatase Total Creatine Kinase CK-MB (Mass) Troponin I Total Protein Albumin Globulin Albumin/Globulin Ratio Urine Color Yellow Urine Clarity Hazy Urine pH 9.0 Ur Specific [place] 1.009 Urine Protein 3+ H Urine Glucose (UA) 3+ H Urine Ketones Negative Urine Blood Negative Urine Nitrate Negative Urine Bilirubin Negative Urine Urobilinogen Normal Ur Leukocyte Esterase Neg Urine WBC (Auto) 1 Urine RBC (Auto) < 1 Ur Squamous Epith Cells 23 H Random Vancomycin 26.6 10/19/18 10/19/18 10/19/18 07:39 07:39 11:30 WBC 5.3 RBC 2.55 L Hgb 8.8 L Hct 26.1 L MCV 102.4 H MCH 34.5 H MCHC 33.7 RDW 16.1 H Plt Count 168 MPV 10.0 Neut % (Auto) 60.2 Lymph % (Auto) 23.6 Bureau % (Auto) 13.3 H Eos % (Auto) 2.2 Baso % (Auto) 0.7 Neut # (Auto) 3.2 Lymph # (Auto) 1.3 Bureau # (Auto) 0.7 Eos # (Auto) 0.1 Baso # (Auto) 0.0 Sodium 138 Potassium 4.2 Chloride 102 Carbon Dioxide 25 Anion Gap 15 BUN 32 H Creatinine 6.8 H Est GFR ( Amer) 8 Est GFR (Non-Af Amer) 6 POC Glucose (mg/dL) 148 H Random Glucose 148 H D Lactic Acid Calcium 8.4 L Phosphorus Magnesium Total Bilirubin 0.8 AST 36 ALT 35 Alkaline Phosphatase 72 Total Creatine Kinase CK-MB (Mass) Troponin I Total Protein 6.4 Albumin 3.4 L Globulin 3.1 Albumin/Globulin Ratio 1.1 Urine Color Urine Clarity Urine pH Ur Specific [place] Urine Protein Urine Glucose (UA) Urine Ketones Urine Blood Urine Nitrate Urine Bilirubin Urine Urobilinogen Ur Leukocyte Esterase Urine WBC (Auto) Urine RBC (Auto) Ur Squamous Epith Cells Random Vancomycin Assessment & Plan (1) Acute respiratory distress Status: Acute (2) Multifocal pneumonia Status: Acute (3) ESRD needing dialysis Status: Acute - Assessment and Plan (Free Text) Assessment: Acute respiratory failure with hypoxemia with radiographic finding of bilateral multilobar extensive groundglass opacity and consolidation very likely bilateral lobar pneumonia plus company component of acute pulmonary edema Acute pulmonary hemorrhage is very less likely even though there is hemoglobin 2 g hemoglobin drop and today's lab since patient has no hemodynamic instability no hemoptysis and the clinical picture is not supportive of acute bleeding in the lung Would continue with broad-spectrum antibiotic High flow nasal cannula to keep O2 saturation above 94% Stat VQ scan to rule out acute pulmonary embolism Pancultures including blood and sputum ID consultation
[2018-10-19 17:15] LABS: BASO % 0.7 % (0.0-2.0); EOS # 0.1 K/uL (0.0-0.7); EOS % 2.1 % (0.0-4.0); HEMOGLOBIN 9.3 g/dL (11.0-16.0); LYMPH # 0.7 K/uL (1.0-4.3); LYMPH % 12.7 % (20.0-40.0); MEAN CELL VOLUME 100.2 fL (81.0-99.0); MEAN CORPUSCULAR HEMOGLOBIN 33.2 pg (27.0-31.0); MEAN CORPUSCULAR HGB CONC 33.1 g/dL (33.0-37.0); MEAN PLATELET VOLUME 9.9 fL (7.2-11.7); MONO # 0.7 K/uL (0.0-0.8); MONO % 12.5 % (0.0-10.0); NEUT # 4.2 K/uL (1.8-7.0); RBC 2.8 Mil/uL (3.80-5.20); RED CELL DISTRIBUTION WIDTH 15.8 % (11.5-14.5); WHITE BLOOD COUNT 5.8 K/uL (4.8-10.8)
[2018-10-19 17:26] LABS: BILIRUBIN,DIRECT 0.8 mg/dL (0.0-0.4)
[2018-10-19 17:44] LABS: FREE T4 1.94 ng/dL (0.78-2.19)
--- NOTE | 2018-10-19 18:58 | CP.PCM.PN ---
Subjective - Date & Time of Evaluation Date of Evaluation: 10/19/18 Time of Evaluation: 18:57 - Subjective Subjective: pt is seen and examined, follow up consult is dictated #[id number] s/p hd today, had a uf about 3 lit Objective - Vital Signs/Intake and Output Vital Signs (last 24 hours): Temp Pulse Resp BP Pulse Ox 99.6 F 78 18 134/58 L 95 10/19/18 15:40 10/19/18 15:40 10/19/18 16:33 10/19/18 15:40 10/19/18 15:40 - Medications Medications: Current Medications Acetaminophen (Tylenol 325mg Tab) 650 mg PO Q6 PRN PRN Reason: Fever >100.4 F Last Admin: 10/19/18 13:54 Dose: 650 mg Albuterol/Ipratropium (Duoneb 3 Mg/0.5 Mg (3 Ml) Ud) 3 ml INH RQ6 [facility] Last Admin: 10/19/18 13:29 Dose: Not Given Amlodipine Besylate (Norvasc) 10 mg PO DAILY [facility] Last Admin: 10/19/18 14:05 Dose: 10 mg Calcium Acetate (Phoslo) 667 mg PO BIDCC [facility] Last Admin: 10/19/18 17:19 Dose: 667 mg Carvedilol (Coreg) 12.5 mg PO Q12 [facility] Last Admin: 10/19/18 10:00 Dose: Not Given Dextrose (Dextrose 50% Inj) 0 ml IV STAT PRN; Protocol PRN Reason: Hypoglycemia Protocol Dextrose (Glutose 15) 0 gm PO ONCE PRN; Protocol PRN Reason: Hypoglycemia Protocol Docusate Sodium (Colace) 100 mg PO TID [facility] Last Admin: 10/19/18 17:19 Dose: 100 mg Epoetin Wild (Procrit) 4,000 unit SC MWF [facility] Last Admin: 10/19/18 11:33 Dose: 4,000 unit Glucagon (Glucagen Diagnostic Kit) 0 mg IM STAT PRN; Protocol PRN Reason: Hypoglycemia Protocol Heparin Sodium (Porcine) (Heparin) 5,000 units SC Q12 [facility] Last Admin: 10/19/18 10:00 Dose: Not Given Hydralazine HCl (Apresoline) 25 mg PO Q8 [facility] Last Admin: 10/19/18 14:02 Dose: 25 mg Azithromycin 500 mg/ Sodium (Chloride) 250 mls @ 250 mls/hr IVPB DAILY [facility]; Protocol Last Admin: 10/19/18 09:10 Dose: 250 mls/hr Dextrose (Dextrose 5% In Water 1000 Ml) 1,000 mls @ 0 mls/hr IV .Q0M PRN; Prot ocol PRN Reason: Hypoglycemia Protocol Piperacillin Sod/Tazobactam (Sod 2.25 gm/ Sodium Chloride) 100 mls @ 200 mls/hr IVPB Q8H [facility]; Protocol Last Admin: 10/19/18 17:18 Dose: 200 mls/hr Vancomycin HCl 500 mg/ Sodium (Chloride) 100 mls @ 67 mls/hr IVPB MWF [facility]; Protocol Stop: 10/24/18 09:01 Last Admin: 10/19/18 15:09 Dose: 67 mls/hr Insulin Aspart (Novolog) 0 unit SC ACHS [facility]; Protocol Last Admin: 10/19/18 17:19 Dose: 4 units Insulin Glargine (Lantus) 25 unit SC [facility] Last Admin: 10/18/18 23:12 Dose: 25 units Oseltamivir Phosphate (Tamiflu Susp) 30 mg PO BID [facility]; Protocol Stop: 10/23/18 15:40 Last Admin: 10/19/18 17:35 Dose: 30 mg Pantoprazole Sodium (Protonix Ec Tab) 40 mg PO DAILY [facility] Paricalcitol (Zemplar) 2 mcg IV [facility] Last Admin: 10/19/18 10:33 Dose: 2 mcg Promethazine HCl/Dextromethorphan (Phenergan Dm Syrup) 5 ml PO Q6H PRN PRN Reason: Cough Last Admin: 10/19/18 13:53 Dose: 5 ml Rosuvastatin Calcium (Crestor) 5 mg PO [facility] Last Admin: 10/18/18 23:12 Dose: 5 mg Vitamin B Complex/Vit C/Folic Acid (Nephro-Mary) 1 tab PO DAILY [facility] Last Admin: 10/19/18 14:07 Dose: 1 tab - Labs Labs: 10/19/18 17:07 10/19/18 07:39
--- NOTE | 2018-10-19 20:10 | CP.PCM.PN ---
Subjective - Date & Time of Evaluation Date of Evaluation: 10/19/18 Time of Evaluation: 15:30 - Subjective Subjective: dictated Objective - Vital Signs/Intake and Output Vital Signs (last 24 hours): Temp Pulse Resp BP Pulse Ox 99.6 F 78 17 134/58 L 95 10/19/18 15:40 10/19/18 15:40 10/19/18 20:03 10/19/18 15:40 10/19/18 15:40 - Medications Medications: Current Medications Acetaminophen (Tylenol 325mg Tab) 650 mg PO Q6 PRN PRN Reason: Fever >100.4 F Last Admin: 10/19/18 13:54 Dose: 650 mg Albuterol/Ipratropium (Duoneb 3 Mg/0.5 Mg (3 Ml) Ud) 3 ml INH RQ6 [facility] Last Admin: 10/19/18 20:03 Dose: 3 ml Amlodipine Besylate (Norvasc) 10 mg PO DAILY [facility] Last Admin: 10/19/18 14:05 Dose: 10 mg Calcium Acetate (Phoslo) 667 mg PO BIDCC [facility] Last Admin: 10/19/18 17:19 Dose: 667 mg Carvedilol (Coreg) 12.5 mg PO Q12 [facility] Last Admin: 10/19/18 10:00 Dose: Not Given Dextrose (Dextrose 50% Inj) 0 ml IV STAT PRN; Protocol PRN Reason: Hypoglycemia Protocol Dextrose (Glutose 15) 0 gm PO ONCE PRN; Protocol PRN Reason: Hypoglycemia Protocol Docusate Sodium (Colace) 100 mg PO TID [facility] Last Admin: 10/19/18 17:19 Dose: 100 mg Epoetin Wild (Procrit) 4,000 unit SC MWF [facility] Last Admin: 10/19/18 11:33 Dose: 4,000 unit Glucagon (Glucagen Diagnostic Kit) 0 mg IM STAT PRN; Protocol PRN Reason: Hypoglycemia Protocol Heparin Sodium (Porcine) (Heparin) 5,000 units SC Q12 [facility] Last Admin: 10/19/18 10:00 Dose: Not Given Hydralazine HCl (Apresoline) 25 mg PO Q8 [facility] Last Admin: 10/19/18 14:02 Dose: 25 mg Azithromycin 500 mg/ Sodium (Chloride) 250 mls @ 250 mls/hr IVPB DAILY [facility]; Protocol Last Admin: 03/08/19 09:10 Dose: 250 mls/hr Dextrose (Dextrose 5% In Water 1000 Ml) 1,000 mls @ 0 mls/hr IV .Q0M PRN; P rotocol PRN Reason: Hypoglycemia Protocol Piperacillin Sod/Tazobactam (Sod 2.25 gm/ Sodium Chloride) 100 mls @ 200 mls/hr IVPB Q8H [facility]; Protocol Last Admin: 10/19/18 17:18 Dose: 200 mls/hr Vancomycin HCl 500 mg/ Sodium (Chloride) 100 mls @ 67 mls/hr IVPB MWF [facility]; Protocol Stop: 10/24/18 09:01 Last Admin: 10/19/18 15:09 Dose: 67 mls/hr Insulin Aspart (Novolog) [address] [facility]; Protocol Last Admin: 10/19/18 17:19 Dose: 4 units Insulin Glargine (Lantus) 25 unit SC [facility] Last Admin: 10/18/18 23:12 Dose: 25 units Oseltamivir Phosphate (Tamiflu Susp) 30 mg PO BID [facility]; Protocol Stop: 10/23/18 15:40 Last Admin: 10/19/18 17:35 Dose: 30 mg Pantoprazole Sodium (Protonix Ec Tab) 40 mg PO DAILY [facility] Paricalcitol (Zemplar) 2 mcg IV [facility] [place] Last Admin: 10/19/18 10:33 Dose: 2 mcg Promethazine HCl/Dextromethorphan (Phenergan Dm Syrup) 5 ml PO Q6H PRN PRN Reason: Cough Last Admin: 10/19/18 13:53 Dose: 5 ml Rosuvastatin Calcium (Crestor) 5 mg PO [facility] Last Admin: 10/18/18 23:12 Dose: 5 mg Vitamin B Complex/Vit C/Folic Acid (Nephro-Mary) 1 tab PO DAILY [facility] Last Admin: 10/19/18 14:07 Dose: 1 tab - Labs Labs: 10/19/18 17:07 10/19/18 07:39
--- NOTE | 2018-10-19 20:40 | CP.PCM.PN ---
Subjective - Date & Time of Evaluation Date of Evaluation: 10/19/18 Time of Evaluation: 10:30 - Subjective Subjective: clinically same Objective - Vital Signs/Intake and Output Vital Signs (last 24 hours): Temp Pulse Resp BP Pulse Ox 99.6 F 78 17 134/58 L 95 10/19/18 15:40 10/19/18 15:40 10/19/18 20:03 10/19/18 15:40 10/19/18 15:40 - Medications Medications: Current Medications Acetaminophen (Tylenol 325mg Tab) 650 mg PO Q6 PRN PRN Reason: Fever >100.4 F Last Admin: 10/19/18 13:54 Dose: 650 mg Albuterol/Ipratropium (Duoneb 3 Mg/0.5 Mg (3 Ml) Ud) 3 ml INH RQ6 [facility] Last Admin: 10/19/18 20:03 Dose: 3 ml Amlodipine Besylate (Norvasc) 10 mg PO DAILY [facility] Last Admin: 10/19/18 14:05 Dose: 10 mg Calcium Acetate (Phoslo) 667 mg PO BIDCC [facility] Last Admin: 10/19/18 17:19 Dose: 667 mg Carvedilol (Coreg) 12.5 mg PO Q12 [facility] Last Admin: 10/19/18 10:00 Dose: Not Given Dextrose (Dextrose 50% Inj) 0 ml IV STAT PRN; Protocol PRN Reason: Hypoglycemia Protocol Dextrose (Glutose 15) 0 gm PO ONCE PRN; Protocol PRN Reason: Hypoglycemia Protocol Docusate Sodium (Colace) 100 mg PO TID [facility] Last Admin: 10/19/18 17:19 Dose: 100 mg Epoetin Wild (Procrit) 4,000 unit SC MWF [facility] Last Admin: 10/19/18 11:33 Dose: 4,000 unit Glucagon (Glucagen Diagnostic Kit) 0 mg IM STAT PRN; Protocol PRN Reason: Hypoglycemia Protocol Heparin Sodium (Porcine) (Heparin) 5,000 units SC Q12 [facility] Last Admin: 10/19/18 10:00 Dose: Not Given Hydralazine HCl (Apresoline) 25 mg PO Q8 [facility] Last Admin: 10/19/18 14:02 Dose: 25 mg Azithromycin 500 mg/ Sodium (Chloride) 250 mls @ 250 mls/hr IVPB DAILY [facility]; Protocol Last Admin: 10/19/18 09:10 Dose: 250 mls/hr Dextrose (Dextrose 5% In Water 1000 Ml) 1,000 mls @ 0 mls/hr IV .Q0M PRN; Protocol PRN Reason: Hypoglycemia Protocol Piperacillin Sod/Tazobactam (Sod 2.25 gm/ Sodium Chloride) 100 mls @ 200 mls/hr IVPB Q8H [facility]; Protocol Last Admin: 10/19/18 17:18 Dose: 200 mls/hr Vancomycin HCl 500 mg/ Sodium (Chloride) 100 mls @ 67 mls/hr IVPB MWF [facility]; Protocol Stop: 10/24/18 09:01 Last Admin: 10/19/18 15:09 Dose: 67 mls/hr Insulin Aspart (Novolog) 0 unit SC [facility]; Protocol Last Admin: 10/19/18 17:19 Dose: 4 units Insulin Glargine (Lantus) 25 unit SC [facility] Last Admin: 10/18/18 23:12 Dose: 25 units Oseltamivir Phosphate (Tamiflu Susp) 30 mg PO BID [facility]; Protocol Stop: 10/23/18 15:40 Last Admin: 10/19/18 17:35 Dose: 30 mg Pantoprazole Sodium (Protonix Ec Tab) 40 mg PO DAILY [facility] Paricalcitol (Zemplar) 2 mcg IV [facility] Last Admin: 10/19/18 10:33 Dose: 2 mcg Promethazine HCl/Dextromethorphan (Phenergan Dm Syrup) 5 ml PO Q6H PRN PRN Reason: Cough Last Admin: 10/19/18 13:53 Dose: 5 ml Rosuvastatin Calcium (Crestor) 5 mg PO [facility] Last Admin: 10/18/18 23:12 Dose: 5 mg Vitamin B Complex/Vit C/Folic Acid (Nephro-Mary) 1 tab PO DAILY [facility] Last Admin: 10/19/18 14:07 Dose: 1 tab - Labs Labs: 10/19/18 17:07 10/19/18 07:39
[2018-10-19] MEDS: (Lantus) Insulin Glargine, Recombinant SC SCH (22:00)
[2018-10-20] MEDS: Piperacillin/Tazobact 2.25 GM in Sodium Chloride 100 ML IVPB SCH ×3 (01:12→17:20)
--- NOTE | 2018-10-20 01:37 | PN ---
DATE: 10/19/2018 INFECTIOUS DISEASE FOLLOWUP SUBJECTIVE: I had seen this patient yesterday first time. She was coughing a lot and I wrote antibiotics to be changed, and before we could do them, she had [employer] and she was seen by the Pulmonary as well as the resident. She is now seen by Dr. Mcclellan. She feels little better today. She is not coughing as much. She is on higher oxygen. She said she really had a cough spell yesterday. She had a CAT scan this morning and a VQ scan. She is on multiple antibiotics including vancomycin, Zosyn, Zithromax and Tamiflu. She a dialysis patient. PHYSICAL EXAMINATION: VITAL SIGNS: T-max is 99.6 today, pulse is 78, blood pressure 134/58, respirations are 20. HEENT: Head is atraumatic, normocephalic. NECK: Supple. LUNGS: Have coarse breath sounds. HEART: S1, S2, is regular. ABDOMEN: Soft, nontender. No guarding, no rigidity present. EXTREMITIES: Have mild edema. Otherwise, she has a fistula on the left arm for dialysis. LABORATORY DATA: White count is 5.8, hemoglobin is 9.3, hematocrit 28.1, platelet count is 164, is unchanged; her machine differential is neutrophils are 72, lymphs are 12 and monos are 12.5; it makes me feel she had a viral pneumonia but she had bilateral pneumonia and her flu test was negative. In spite of that, the things have started with a flu. Her CAT scan today came out with multiple nodularity, possible bilateral. It said extensive multilobar consolidation and ground-glass opacities, no discrete pulmonary mass. This is most extensive in the left upper lobe and in the right lower lobe. The differential diagnosis includes pulmonary edema, multilobar pneumonia, and pulmonary hemorrhage or less likely neoplastic etiology. Also, I am waiting for the VQ scan report. At this time, her urine culture and blood culture x2 are negative. Labs showed a serology. Influenza was negative. Legionella was negative and vancomycin random was 26.6 today, so, I think we can hold the vancomycin, we should get a random level tomorrow and see what vancomycin level shows. She is on MWF, though she got at 9 o'clock, she is not going to get until Monday now. We will repeat the levels on Monday. PLAN: We will continue Zosyn as well as Zithromax at this time. The patient has bilateral pneumonia. It could be viral as she did not have a white count or we need to rule out if she has a pulmonary hemorrhage as her hemoglobin dropped, but she is a dialysis patient, her hemoglobin may be low to start with and maybe she was drying. So, at this time, we will still continue the antibiotics and Tamiflu. We will follow. Karey Ling MD
[2018-10-20] MEDS: Albuterol-Ipratrop 3 mg / 0.5 (3 ml) UD INH SCH ×4 (02:52→19:39)
--- NOTE | 2018-10-20 04:40 | PN ---
DATE: 10/19/2018 FOLLOWUP RENAL CONSULTATION LOCATION: The patient is located in room 654. REASON FOR FOLLOWUP: End-stage renal disease, continuation of hemodialysis, and multilobar pneumonia. SUBJECTIVE: Mrs. Wells is a 58-year-old middle-aged female with a history of longstanding hypertension, diabetes, diabetic retinopathy, status post cataract surgery, hyperlipidemia, CHF, end-stage renal disease, on hemodialysis three times a week of Monday, Monday and Monday who was admitted with the chief complaints of cough and fever since Monday post-dialysis and also high-grade fever. The patient was found to have bilateral multilobar pneumonia. The patient underwent hemodialysis this afternoon and had ultrafiltration about 3 L. The patient is feeling slightly better today, not in distress, on high-flow oxygen. No chest pain. No palpitation. No fever. Occasional cough. PHYSICAL EXAMINATION: VITAL SIGNS: As follows: Blood pressure 134/58, pulse 78, respirations 20, temperature 99.6, saturation 95%. Height 5 feet 4 inches. Weight is 141 pounds. BMI 24.2. GENERAL: Mrs. Wells is a 58-year-old middle-aged female, moderately built, moderate nourished, not in distress. HEENT: Pupils normal and reactive to light and accommodation. Conjunctivae pink. Sclerae anicteric. Tongue is moist. Trachea is midline. LUNGS: Symmetric on both sides. Bilateral breath sounds present. Occasional basal crackles present. CARDIOVASCULAR SYSTEM: Homer at the fifth intercostal space, midclavicular line. S1 and S2 audible. No murmur or gallop. ABDOMEN: Normal in appearance. Soft, tympanitic. No guarding. No rigidity. No hepatosplenomegaly. CENTRAL NERVOUS SYSTEM: The patient is alert, awake, oriented x3. Nonfocal neuro examination. Cranial nerves II through XII grossly intact. Sensory and motor system is within normal limits. EXTREMITIES: No cyanosis, no clubbing, no edema. CURRENT MEDICATIONS: Include as follows: Hydralazine 25 mg p.o. every 8 hours, azithromycin 500 mg IV daily, Colace 100 mg, Coreg 12.5 mg every 12 hours, Crestor 5 mg at bedtime, DuoNeb inhaler, also subcu heparin 5000 units every 12 hours, Lantus 25 units subcu at bedtime, Nephro-Mary one tablet daily, amlodipine 10 mg daily, Phenergan DM syrup 5 mL every 6 hours p.r.n., Zosyn 2.5 g IV every 8 hours, Procrit 4000 units subcu three times a week, also Tamiflu 30 mg p.o. b.i.d., Tylenol, vancomycin 500 mg three times a week, Zemplar 2 mcg three times a week. LABORATORY DATA: Include as follows as of 10/19/2018: WBC 5.8, hemoglobin 9.3, hematocrit 28.1, platelets 164. Haptoglobin 379.1. Accu-Cheks this morning 181, 148, 287. Total bili 0.9, direct bili 0.8. LDH 751. Procalcitonin 10.9 and free thyroxine is 1.94, free T3 is 3.14, TSH is 1. Vancomycin random level is 26.6. Other laboratory data: CT of the chest, impression: Extensive bilateral multilobar pneumonia, pulmonary opacities, possible bilateral pneumonia, rule out pulmonary edema, small bilateral pleural effusion, mild cardiomegaly. No other significant abnormality. The VQ scan report is pending. ASSESSMENT AND PLAN: In summary, Mrs. Wells is a 58-year-old middle-aged female with history of hypertension, diabetes, diabetic retinopathy, status post laser surgery, status post cataract surgery, hyperlipidemia, end-stage renal disease, congestive heart failure, on hemodialysis three times a week on Monday, Monday and Monday who was admitted with fever, cough and shortness of breath since Monday. The patient was found to have initially bilateral infiltrates, but now the patient has multilobar pneumonia with bilateral effusion. 1. End-stage renal disease. Continue hemodialysis three times a week on Monday, Monday and Monday. 2. Multilobar pneumonia. Continue intravenous antibiotics as per Infectious Disease recommendation of Zosyn, vancomycin and azithromycin. 3. Hypertension. Blood pressure is stable. 4. Diabetes. Continue Lantus. We will consider short dialysis tomorrow for ultrafiltration. We will re-evaluate in the morning. Thank you for allowing me to participate in your patient's care. Chrissie Moore MD
[2018-10-20] MEDS: (Novolog) Insulin Aspart, Recombinant 100 u/ml 10 ml vial SC SCH ×4 (07:55→21:00)
[2018-10-20] MEDS: Multivitamin Vitamin B Complex (Nephro-Vite) Tab PO SCH (10:00)
[2018-10-20] MEDS: Promethazine DM 6.25 mg-15 mg/5 ml Syrup PO PRN (10:01)
[2018-10-20] MEDS: Azithromycin 500 MG in Sodium Chloride 0.9% 250 ML IVPB SCH (10:06)
[2018-10-20] MEDS: Pantoprazole 40 mg EC Tab PO SCH (10:27)
[2018-10-20] MEDS: Oseltamivir 6 MG/ML PO SCH ×2 (10:28→17:20)
--- NOTE | 2018-10-20 14:56 | CP.PCM.PN ---
Subjective - Date & Time of Evaluation Date of Evaluation: 10/20/18 Time of Evaluation: 10:15 - Subjective Subjective: clinically same Objective - Vital Signs/Intake and Output Vital Signs (last 24 hours): Temp Pulse Resp BP Pulse Ox 99.5 F 80 20 160/71 H 98 10/20/18 07:00 10/20/18 07:00 10/20/18 07:00 10/20/18 09:59 10/20/18 07:00 - Medications Medications: Current Medications Acetaminophen (Tylenol 325mg Tab) 650 mg PO Q6 PRN PRN Reason: Fever >100.4 F Last Admin: 10/19/18 13:54 Dose: 650 mg Albuterol/Ipratropium (Duoneb 3 Mg/0.5 Mg (3 Ml) Ud) 3 ml INH RQ6 [facility] Last Admin: 10/20/18 13:24 Dose: Not Given Amlodipine Besylate (Norvasc) 10 mg PO DAILY [facility] Last Admin: 10/20/18 10:00 Dose: 10 mg Calcium Acetate (Phoslo) 667 mg PO BIDCC [facility] Last Admin: 10/20/18 07:54 Dose: 667 mg Carvedilol (Coreg) 12.5 mg PO Q12 [facility] Last Admin: 10/20/18 09:59 Dose: 12.5 mg Dextrose (Dextrose 50% Inj) 0 ml IV STAT PRN; Protocol PRN Reason: Hypoglycemia Protocol Dextrose (Glutose 15) 0 gm PO ONCE PRN; Protocol PRN Reason: Hypoglycemia Protocol Docusate Sodium (Colace) 100 mg PO TID [facility] Last Admin: 10/20/18 14:44 Dose: 100 mg Epoetin Wild (Procrit) 4,000 unit SC MWF [facility] Last Admin: 10/19/18 11:33 Dose: 4,000 unit Glucagon (Glucagen Diagnostic Kit) 0 mg IM STAT PRN; Protocol PRN Reason: Hypoglycemia Protocol Heparin Sodium (Porcine) (Heparin) 5,000 units SC Q12 [facility] Last Admin: 10/20/18 10:00 Dose: 5,000 units Hydralazine HCl (Apresoline) 25 mg PO Q8 [facility] Last Admin: 10/20/18 14:44 Dose: 25 mg Azithromycin 500 mg/ Sodium (Chloride) 250 mls @ 250 mls/hr IVPB DAILY [facility]; Protocol Last Admin: 10/20/18 10:06 Dose: 250 mls/hr Piperacillin Sod/Tazobactam (Sod 2.25 gm/ Sodium Chloride) 100 mls @ 200 mls/hr IVPB Q8H [facility]; Protocol Last Admin: 10/20/18 09:10 Dose: 200 mls/hr Vancomycin HCl 500 mg/ Sodium (Chloride) 100 mls @ 67 mls/hr IVPB MWF [facility]; Protocol Stop: 10/24/18 09:01 Last Admin: 10/19/18 15:09 Dose: 67 mls/hr Insulin Aspart (Novolog) 0 unit SC [facility]; Protocol Last Admin: 10/20/18 11:51 Dose: Not Given Insulin Glargine (Lantus) 25 unit SC [facility] Last Admin: 10/19/18 22:00 Dose: 25 units Oseltamivir Phosphate (Tamiflu Susp) 30 mg PO BID [facility]; Protocol Stop: 10/23/18 15:40 Last Admin: 10/20/18 10:28 Dose: 30 mg Pantoprazole Sodium (Protonix Ec Tab) 40 mg PO DAILY [facility] Last Admin: 10/20/18 10:27 Dose: 40 mg Paricalcitol (Zemplar) 2 mcg IV [facility] [place] Last Admin: 10/19/18 10:33 Dose: 2 mcg Promethazine HCl/Dextromethorphan (Phenergan Dm Syrup) 5 ml PO Q6H PRN PRN Reason: Cough Last Admin: 10/20/18 10:01 Dose: 5 ml Rosuvastatin Calcium (Crestor) 5 mg PO [facility] Last Admin: 10/19/18 21:59 Dose: 5 mg Vitamin B Complex/Vit C/Folic Acid (Nephro-Mary) 1 tab PO DAILY [facility] Last Admin: 10/20/18 10:00 Dose: 1 tab - Labs Labs: 10/19/18 17:07 10/19/18 07:39 - Constitutional Appears: Well - Head Exam Head Exam: ATRAUMATIC, NORMAL INSPECTION, NORMOCEPHALIC - Eye Exam Eye Exam: EOMI, Normal appearance, PERRL Pupil Exam: NORMAL ACCOMODATION, PERRL - ENT Exam ENT Exam: Mucous Membranes Moist, Normal Exam - Neck Exam Neck Exam: Full ROM, Normal Inspection. absent: Lymphadenopathy - Respiratory Exam Respiratory Exam: Decreased Breath Sounds - Cardiovascular Exam Cardiovascular Exam: REGULAR RHYTHM, +S1, +S2 - GI/Abdominal Exam GI & Abdominal Exam: Soft, Diminished Bowel Sounds - Rectal Exam Rectal Exam: Deferred
--- NOTE | 2018-10-20 18:00 | CP.PCM.PN ---
Subjective - Date & Time of Evaluation Date of Evaluation: 10/20/18 Time of Evaluation: 17:59 - Subjective Subjective: Pulmonary follow up, The Patient was seen and examined at the bedside, Medical records reviewed, and management issues were discussed and formulated with the house staff. Events reviewed Patient looks much more comfortable today she is alert awake oriented x3 Sitting comfortable in bed having lunch, able to speak full sentences, Afebrile overnight Oxygen saturation improving and her FiO2 requirement is remarkably lower today Acute respiratory failure from multi lobar pneumonia and acute pulmonary edema/fluid overload acute pulmonary hemorrhage is very unlikely Viral pneumonitis is also a possibility and the patient was started on Tamiflu 30 mg oral twice daily yesterday by ID Continue with broad-spectrum antibiotic coverage with IV vancomycin, Zosyn and azithromycin Out of bed to chair Maintain aspiration precaution Supplemental oxygen to keep oxygen above 94% V/Q SCAN: 10/19/2018 VENTILATION COMPONENT: Mildly heterogeneous ventilation. PERFUSION COMPONENT: Heterogeneous distribution of radionuclide. No geographic, segmental, lobar abnormalities apparent on the present examination. IMPRESSION: Low probability ventilation perfusion scan for pulmonary embolism. Objective - Vital Signs/Intake and Output Vital Signs (last 24 hours): Temp Pulse Resp BP Pulse Ox 98.1 F 67 20 132/63 94 L 10/20/18 15:20 10/20/18 15:20 10/20/18 15:20 10/20/18 15:20 10/20/18 15:20 - Medications Medications: Current Medications Acetaminophen (Tylenol 325mg Tab) 650 mg PO Q6 PRN PRN Reason: Fever >100.4 F Last Admin: 10/19/18 13:54 Dose: 650 mg Albuterol/Ipratropium (Duoneb 3 Mg/0.5 Mg (3 Ml) Ud) 3 ml INH RQ6 [facility] Last Admin: 10/20/18 13:24 Dose: Not Given Amlodipine Besylate (Norvasc) 10 mg PO DAILY [facility] Last Admin: 10/20/18 10:00 Dose: 10 mg Calcium Acetate (Phoslo) 667 mg PO BIDCC [facility] Last Admin: 10/20/18 17:20 Dose: 667 mg Carvedilol (Coreg) 12.5 mg PO Q12 [facility] Last Admin: 10/20/18 09:59 Dose: 12.5 mg Dextrose (Dextrose 50% Inj) 0 ml IV STAT PRN; Protocol PRN Reason: Hypoglycemia Protocol Dextrose (Glutose 15) 0 gm PO ONCE PRN; Protocol PRN Reason: Hypoglycemia Protocol Docusate Sodium (Colace) 100 mg PO TID [facility] Last Admin: 10/20/18 17:19 Dose: 100 mg Epoetin Wild (Procrit) 4,000 unit SC [facility] Last Admin: 10/19/18 11:33 Dose: 4,000 unit Glucagon (Glucagen Diagnostic Kit) 0 mg IM STAT PRN; Protocol PRN Reason: Hypoglycemia Protocol Heparin Sodium (Porcine) (Heparin) 5,000 units SC Q12 [facility] Last Admin: 10/20/18 10:00 Dose: 5,000 units Hydralazine HCl (Apresoline) 25 mg PO Q8 [facility] Last Admin: 10/20/18 14:44 Dose: 25 mg Azithromycin 500 mg/ Sodium (Chloride) 250 mls @ 250 mls/hr IVPB DAILY [facility]; Protocol Last Admin: 10/20/18 10:06 Dose: 250 mls/hr Piperacillin Sod/Tazobactam (Sod 2.25 gm/ Sodium Chloride) 100 mls @ 200 mls/hr IVPB Q8H [facility]; Protocol Last Admin: 10/20/18 17:20 Dose: 200 mls/hr Vancomycin HCl 500 mg/ Sodium (Chloride) 100 mls @ 67 mls/hr [place]PB [facility]; Protocol Stop: 10/24/18 09:01 Last Admin: 10/19/18 15:09 Dose: 67 mls/hr Insulin Aspart (Novolog) 0 unit SC [facility]; Protocol Last Admin: 10/20/18 17:20 Dose: 3 units Insulin Glargine (Lantus) 25 unit SC [facility] Last Admin: 10/19/18 22:00 Dose: 25 units Oseltamivir Phosphate (Tamiflu Susp) 30 mg PO BID [facility]; Protocol Stop: 10/23/18 15:40 Last Admin: 10/20/18 17:20 Dose: 30 mg Pantoprazole Sodium (Protonix Ec Tab) 40 mg PO DAILY [facility] Last Admin: 10/20/18 10:27 Dose: 40 mg Paricalcitol (Zemplar) 2 mcg IV MWF [facility] Last Admin: 10/19/18 10:33 Dose: 2 mcg Promethazine HCl/Dextromethorphan (Phenergan Dm Syrup) 5 ml PO Q6H PRN PRN Reason: Cough Last Admin: 10/20/18 10:01 Dose: 5 ml Rosuvastatin Calcium (Crestor) 5 mg PO HS [facility] Last Admin: 10/19/18 21:59 Dose: 5 mg Vitamin B Complex/Vit C/Folic Acid (Nephro-Mary) 1 tab PO DAILY [facility] Last Admin: 10/20/18 10:00 Dose: 1 tab - Labs Labs: 10/19/18 17:07 10/19/18 07:39 - Constitutional Appears: Well, Non-toxic - Head Exam Head Exam: ATRAUMATIC, NORMAL INSPECTION - Eye Exam Eye Exam: EOMI, Normal appearance Pupil Exam: NORMAL ACCOMODATION - ENT Exam ENT Exam: Mucous Membranes Moist, Normal Exam - Neck Exam Neck Exam: Normal Inspection - Respiratory Exam Respiratory Exam: Decreased Breath Sounds, Prolonged Expiratory Phase, Rales, Rhonchi. absent: Wheezes, Respiratory Distress - Cardiovascular Exam Cardiovascular Exam: REGULAR RHYTHM, +S1, +S2. absent: Murmur - GI/Abdominal Exam GI & Abdominal Exam: Soft, Normal Bowel Sounds. absent: Tenderness - Rectal Exam Rectal Exam: NORMAL INSPECTION - Extremities Exam Extremities Exam: Normal Capillary Refill. absent: Calf Tenderness - Back Exam Back Exam: NORMAL INSPECTION - Neurological Exam Neurological Exam: Alert, Awake, CN II-XII Intact, Normal Gait, Oriented x3. absent: Motor Sensory Deficit Assessment and Plan (1) Acute respiratory failure with hypoxia Status: Acute (2) Acute respiratory distress Status: Acute (3) Multifocal pneumonia Status: Acute (4) ESRD needing dialysis Status: Acute
--- NOTE | 2018-10-20 18:59 | CP.PCM.PN ---
Subjective - Date & Time of Evaluation Date of Evaluation: 10/20/18 Time of Evaluation: 18:59 - Subjective Subjective: pt is seen and examined, follow up consult is dictated #[id number] Objective - Vital Signs/Intake and Output Vital Signs (last 24 hours): Temp Pulse Resp BP Pulse Ox 98.1 F 67 20 132/63 94 L 10/20/18 15:20 10/20/18 15:20 10/20/18 15:20 10/20/18 15:20 10/20/18 15:20 - Medications Medications: Current Medications Acetaminophen (Tylenol 325mg Tab) 650 mg PO Q6 PRN PRN Reason: Fever >100.4 F Last Admin: 10/19/18 13:54 Dose: 650 mg Albuterol/Ipratropium (Duoneb 3 Mg/0.5 Mg (3 Ml) Ud) 3 ml INH RQ6 [facility] Last Admin: 10/20/18 13:24 Dose: Not Given Amlodipine Besylate (Norvasc) 10 mg PO DAILY [facility] Last Admin: 10/20/18 10:00 Dose: 10 mg Calcium Acetate (Phoslo) 667 mg PO BIDCC [facility] Last Admin: 10/20/18 17:20 Dose: 667 mg Carvedilol (Coreg) 12.5 mg PO Q12 [facility] Last Admin: 10/20/18 09:59 Dose: 12.5 mg Dextrose (Dextrose 50% Inj) 0 ml IV STAT PRN; Protocol PRN Reason: Hypoglycemia Protocol Dextrose (Glutose 15) 0 gm PO ONCE PRN; Protocol PRN Reason: Hypoglycemia Protocol Docusate Sodium (Colace) 100 mg PO TID [facility] Last Admin: 10/20/18 17:19 Dose: 100 mg Epoetin Wild (Procrit) 4,000 unit SC MWF [facility] Last Admin: 10/19/18 11:33 Dose: 4,000 unit Glucagon (Glucagen Diagnostic Kit) 0 mg IM STAT PRN; Protocol PRN Reason: Hypoglycemia Protocol Heparin Sodium (Porcine) (Heparin) 5,000 units SC Q12 [facility] Last Admin: 10/20/18 10:00 Dose: 5,000 units Hydralazine HCl (Apresoline) 25 mg PO Q8 [facility] Last Admin: 10/20/18 14:44 Dose: 25 mg Azithromycin 500 mg/ Sodium (Chloride) 250 mls @ 250 mls/hr IVPB DAILY [facility]; Protocol Last Admin: 10/20/18 10:06 Dose: 250 mls/hr Piperacillin Sod/Tazobactam (Sod 2.25 gm/ Sodium Chloride) 100 mls @ 200 mls/hr IVPB Q8H [facility]; Protocol Last Admin: 10/20/18 17:20 Dose: 200 mls/hr Vancomycin HCl 500 mg/ Sodium (Chloride) 100 mls @ 67 mls/hr IVPB MWF [facility]; Protocol Stop: 10/24/18 09:01 Last Admin: 10/19/18 15:09 Dose: 67 mls/hr Insulin Aspart (Novolog) 0 unit SC [facility]; Protocol Last Admin: 10/20/18 17:20 Dose: 3 units Insulin Glargine (Lantus) 25 unit SC [facility] Last Admin: 10/19/18 22:00 Dose: 25 units Oseltamivir Phosphate (Tamiflu Susp) 30 mg PO BID [facility]; Protocol Stop: 10/23/18 15:40 Last Admin: 10/20/18 17:20 Dose: 30 mg Pantoprazole Sodium (Protonix Ec Tab) 40 mg PO DAILY [facility] Last Admin: 10/20/18 10:27 Dose: 40 mg Paricalcitol (Zemplar) [address] [facility] Last Admin: 10/19/18 10:33 Dose: 2 mcg Promethazine HCl/Dextromethorphan (Phenergan Dm Syrup) 5 ml PO Q6H PRN PRN Reason: Cough Last Admin: 10/20/18 10:01 Dose: 5 ml Rosuvastatin Calcium (Crestor) 5 mg PO [facility] Last Admin: 10/19/18 21:59 Dose: 5 mg Vitamin B Complex/Vit C/Folic Acid (Nephro-Mary) 1 tab PO DAILY [facility] Last Admin: 10/20/18 10:00 Dose: 1 tab - Labs Labs: 10/19/18 17:07 10/19/18 07:39
[2018-10-20] MEDS: (Lantus) Insulin Glargine, Recombinant SC SCH (21:30)
[2018-10-21] MEDS: Albuterol-Ipratrop 3 mg / 0.5 (3 ml) UD INH SCH ×4 (01:42→20:12)
--- NOTE | 2018-10-21 01:42 | PN ---
DATE: 10/20/2018 FOLLOWUP RENAL CONSULTATION LOCATION: The patient is located in room 654, bed B. SUBJECTIVE: Mrs. Wells is a 58-year-old old female with a past medical history significant for longstanding hypertension, diabetes, hyperlipidemia, end-stage renal disease, CHF who was admitted with fever, cough and shortness of breath since Monday post dialysis. The patient was found to have multilobar pneumonia, on IV antibiotics. The patient is feeling slightly better today without any oxygen. No chest pain. No palpitation. No fever. No cough. PHYSICAL EXAMINATION: VITAL SIGNS: As follows: Blood pressure 142/70, pulse 67, respirations 20, temperature 98.1, saturation 94%. Height 5 feet 4 inches. Weight is 141 pounds. GENERAL: Mrs. Wells is a 58-year-old middle-aged female, moderately built, moderately nourished, not in acute distress. HEENT: Pupils normal and reactive to light and accommodation. Conjunctivae pink. Sclerae anicteric. Tongue is moist. Trachea is midline. LUNGS: Symmetric on both sides. Bilateral breath sounds present. Occasional basal crackles present. CARDIOVASCULAR SYSTEM: [place] at the fifth intercostal space, midclavicular line. S1 and S2 audible. No murmur or gallop. ABDOMEN: Normal in appearance, soft, tympanitic. No guarding. No rigidity. No hepatosplenomegaly. CENTRAL NERVOUS SYSTEM: The patient is alert, awake, oriented x3. Nonfocal neuro examination. Cranial nerves II through XII grossly intact. Sensory and motor system is within normal limits. EXTREMITIES: No cyanosis, no clubbing, no edema. CURRENT MEDICATIONS: Include as follows: Hydralazine, azithromycin, Colace, Coreg, Crestor, DuoNeb inhaler, Lantus, Nephro-Mary, amlodipine, NovoLog, Phenergan DM syrup, PhosLo, Zosyn, Procrit, Protonix, Tamiflu, vancomycin, and Zemplar. LABORATORY DATA: No new labs available for today. Accu-Cheks 287, 286 and 277 this morning. ASSESSMENT AND PLAN: In summary, Mrs. Wells is a 58-year-old middle-aged female with history of hypertension, diabetes, diabetic retinopathy, end-stage renal disease, hyperlipidemia with fever and cough with multilobar pneumonia. 1. End-stage renal disease. Continue hemodialysis three times a week on Monday, Monday and Monday. 2. Hypertension. Blood pressure is stable. Continue her current medications. 3. Multilobar pneumonia. Continue antibiotics as per Infectious Disease recommendations, azithromycin, Zosyn, vancomycin and Tamiflu. 4. Diabetes. Continue Lantus. Sugars are still uncontrolled. Adjust insulin as per the primary care physician, Dr. Wiliam Wells. Thank you for allowing me to participate in your patient's care. Chrissie Moore MD
[2018-10-21] MEDS: Piperacillin/Tazobact 2.25 GM in Sodium Chloride 100 ML IVPB SCH ×3 (01:46→17:03)
[2018-10-21] MEDS: (Novolog) Insulin Aspart, Recombinant 100 u/ml 10 ml vial SC SCH ×4 (07:40→22:18)
[2018-10-21] MEDS: Azithromycin 500 MG in Sodium Chloride 0.9% 250 ML IVPB SCH (10:45)
[2018-10-21] MEDS: Pantoprazole 40 mg EC Tab PO SCH (10:50)
[2018-10-21] MEDS: Multivitamin Vitamin B Complex (Nephro-Vite) Tab PO SCH (10:50)
[2018-10-21] MEDS: Promethazine DM 6.25 mg-15 mg/5 ml Syrup PO PRN ×2 (10:59→21:36)
[2018-10-21] MEDS: Oseltamivir 6 MG/ML PO SCH ×2 (11:01→17:01)
--- NOTE | 2018-10-21 14:51 | CP.PCM.PN ---
Subjective - Date & Time of Evaluation Date of Evaluation: 10/21/18 Time of Evaluation: 14:45 - Subjective Subjective: dictated Objective - Vital Signs/Intake and Output Vital Signs (last 24 hours): Temp Pulse Resp BP Pulse Ox 99.8 F H 72 18 137/63 96 10/21/18 09:21 10/21/18 09:21 10/21/18 09:21 10/21/18 10:51 10/21/18 09:21 - Medications Medications: Current Medications Acetaminophen (Tylenol 325mg Tab) 650 mg PO Q6 PRN PRN Reason: Fever >100.4 F Last Admin: 10/19/18 13:54 Dose: 650 mg Albuterol/Ipratropium (Duoneb 3 Mg/0.5 Mg (3 Ml) Ud) 3 ml INH RQ6 [facility] Last Admin: 10/21/18 13:27 Dose: 3 ml Amlodipine Besylate (Norvasc) 10 mg PO DAILY [facility] Last Admin: 10/21/18 11:01 Dose: 10 mg Calcium Acetate (Phoslo) 667 mg PO BIDCC [facility] Last Admin: 10/21/18 10:50 Dose: 667 mg Carvedilol (Coreg) 12.5 mg PO Q12 [facility] Last Admin: 10/21/18 10:51 Dose: 12.5 mg Dextrose (Dextrose 50% Inj) 0 ml IV STAT PRN; Protocol PRN Reason: Hypoglycemia Protocol Dextrose (Glutose 15) 0 gm PO ONCE PRN; Protocol PRN Reason: Hypoglycemia Protocol Docusate Sodium (Colace) 100 mg PO TID [facility] Last Admin: 10/21/18 13:26 Dose: 100 mg Epoetin Wild (Procrit) 4,000 unit SC MWF [facility] Last Admin: 10/19/18 11:33 Dose: 4,000 unit Glucagon (Glucagen Diagnostic Kit) 0 mg IM STAT PRN; Protocol PRN Reason: Hypoglycemia Protocol Hydralazine HCl (Apresoline) 25 mg PO Q8 [facility] Last Admin: 10/21/18 13:28 Dose: 25 mg Azithromycin 500 mg/ Sodium (Chloride) 250 mls @ 250 mls/hr IVPB DAILY [facility]; Protocol Last Admin: 10/21/18 10:45 Dose: 250 mls/hr Piperacillin Sod/Tazobactam (Sod 2.25 gm/ Sodium Chloride) 100 mls @ 200 mls/hr IVPB Q8H [facility]; Protocol Last Admin: 10/21/18 09:45 Dose: 200 mls/hr Vancomycin HCl 500 mg/ Sodium (Chloride) 100 mls @ 67 mls/hr IVPB MWF [facility]; Protocol Stop: 10/24/18 09:01 Last Admin: 10/19/18 15:09 Dose: 67 mls/hr Insulin Aspart (Novolog) 0 unit SC [facility]; Protocol Last Admin: 10/21/18 12:49 Dose: Not Given Insulin Glargine (Lantus) 25 unit SC [facility] Last Admin: 10/20/18 21:30 Dose: 25 units Oseltamivir Phosphate (Tamiflu Susp) 30 mg PO BID [facility]; Protocol Stop: 10/23/18 15:40 Last Admin: 10/21/18 11:01 Dose: 30 mg Pantoprazole Sodium (Protonix Ec Tab) 40 mg PO DAILY [facility] Last Admin: 10/21/18 10:50 Dose: 40 mg Paricalcitol (Zemplar) 2 mcg IV MWF [facility] Last Admin: 10/19/18 10:33 Dose: 2 mcg Promethazine HCl/Dextromethorphan (Phenergan Dm Syrup) 5 ml PO Q6H PRN PRN Reason: Cough Last Admin: 10/21/18 10:59 Dose: 5 ml Rosuvastatin Calcium (Crestor) 5 mg PO [facility] Last Admin: 10/20/18 21:29 Dose: 5 mg Vitamin B Complex/Vit C/Folic Acid (Nephro-Mary) 1 tab PO DAILY [facility] Last Admin: 10/21/18 10:50 Dose: 1 tab - Labs Labs: 10/19/18 17:07 10/19/18 07:39
--- NOTE | 2018-10-21 16:05 | CP.PCM.PN ---
Subjective - Date & Time of Evaluation Date of Evaluation: 10/21/18 Time of Evaluation: 10:30 - Subjective Subjective: clinically same Objective - Vital Signs/Intake and Output Vital Signs (last 24 hours): Temp Pulse Resp BP Pulse Ox 98.1 F 71 20 148/62 94 L 10/21/18 15:47 10/21/18 15:47 10/21/18 15:47 10/21/18 15:47 10/21/18 15:47 - Medications Medications: Current Medications Acetaminophen (Tylenol 325mg Tab) 650 mg PO Q6 PRN PRN Reason: Fever >100.4 F Last Admin: 10/19/18 13:54 Dose: 650 mg Albuterol/Ipratropium (Duoneb 3 Mg/0.5 Mg (3 Ml) Ud) 3 ml INH RQ6 [facility] Last Admin: 10/21/18 13:27 Dose: 3 ml Amlodipine Besylate (Norvasc) 10 mg PO DAILY [facility] Last Admin: 10/21/18 11:01 Dose: 10 mg Calcium Acetate (Phoslo) 667 mg PO BIDCC [facility] Last Admin: 10/21/18 10:50 Dose: 667 mg Carvedilol (Coreg) 12.5 mg PO Q12 [facility] Last Admin: 10/21/18 10:51 Dose: 12.5 mg Dextrose (Dextrose 50% Inj) 0 ml IV STAT PRN; Protocol PRN Reason: Hypoglycemia Protocol Dextrose (Glutose 15) 0 gm PO ONCE PRN; Protocol PRN Reason: Hypoglycemia Protocol Docusate Sodium (Colace) 100 mg PO TID [facility] Last Admin: 10/21/18 13:26 Dose: 100 mg Epoetin Wild (Procrit) 4,000 unit SC MWF [facility] Last Admin: 10/19/18 11:33 Dose: 4,000 unit Glucagon (Glucagen Diagnostic Kit) 0 mg IM STAT PRN; Protocol PRN Reason: Hypoglycemia Protocol Hydralazine HCl (Apresoline) 25 mg PO Q8 [facility] Last Admin: 10/21/18 13:28 Dose: 25 mg Azithromycin 500 mg/ Sodium (Chloride) 250 mls @ 250 mls/hr IVPB DAILY [facility]; Protocol Last Admin: 10/21/18 10:45 Dose: 250 mls/hr Piperacillin Sod/Tazobactam (Sod 2.25 gm/ Sodium Chloride) 100 mls @ 200 mls/hr IVPB Q8H [facility]; Protocol Last Admin: 10/21/18 09:45 Dose: 200 mls/hr Vancomycin HCl 500 mg/ Sodium (Chloride) 100 mls @ 67 mls/hr IVPB MWF [facility]; Protocol Stop: 10/24/18 09:01 Last Admin: 10/19/18 15:09 Dose: 67 mls/hr Insulin Aspart (Novolog) 0 unit SC [facility]; Protocol Last Admin: 10/21/18 12:49 Dose: Not Given Insulin Glargine (Lantus) 25 unit SC [facility] Last Admin: 10/20/18 21:30 Dose: 25 units Oseltamivir Phosphate (Tamiflu Susp) 30 mg PO BID [facility]; Protocol Stop: 10/23/18 15:40 Last Admin: 10/21/18 11:01 Dose: 30 mg Pantoprazole Sodium (Protonix Ec Tab) 40 mg PO DAILY [facility] Last Admin: 10/21/18 10:50 Dose: 40 mg Paricalcitol (Zemplar) 2 mcg IV [facility] Last Admin: 10/19/18 10:33 Dose: 2 mcg Promethazine HCl/Dextromethorphan (Phenergan Dm Syrup) 5 ml PO Q6H PRN PRN Reason: Cough Last Admin: 10/21/18 10:59 Dose: 5 ml Rosuvastatin Calcium (Crestor) 5 mg PO [facility] Last Admin: 10/20/18 21:29 Dose: 5 mg Vitamin B Complex/Vit C/Folic Acid (Nephro-Mary) 1 tab PO DAILY [facility] Last Admin: 10/21/18 10:50 Dose: 1 tab - Labs Labs: 10/19/18 17:07 10/19/18 07:39 - Constitutional Appears: Well - Head Exam Head Exam: ATRAUMATIC, NORMAL INSPECTION, NORMOCEPHALIC - Eye Exam Eye Exam: EOMI, Normal appearance, PERRL Pupil Exam: NORMAL ACCOMODATION, PERRL - ENT Exam ENT Exam: Mucous Membranes Moist, Normal Exam - Neck Exam Neck Exam: Full ROM, Normal Inspection. absent: Lymphadenopathy - Respiratory Exam Respiratory Exam: Decreased Breath Sounds - Cardiovascular Exam Cardiovascular Exam: REGULAR RHYTHM, +S1, +S2 - GI/Abdominal Exam GI & Abdominal Exam: Soft, Diminished Bowel Sounds - Rectal Exam Rectal Exam: Deferred
--- NOTE | 2018-10-21 18:27 | CP.PCM.PN ---
Subjective - Date & Time of Evaluation Date of Evaluation: 10/21/18 Time of Evaluation: 18:26 - Subjective Subjective: Pulmonary follow up. The Patient was seen and examined at the bedside, Medical records reviewed, and management issues were discussed and formulated with the house staff. Events reviewed Patient looks much more comfortable today she is alert awake oriented x3 Respiratory status has been slowly getting better Patient is sitting comfortable in bed Awake, comfortable, in no apparent distress Oxygen saturation improving and her FiO2 requirement is remarkably lower Afebrile Objective - Vital Signs/Intake and Output Vital Signs (last 24 hours): Temp Pulse Resp BP Pulse Ox 98.1 F 71 20 148/62 94 L 10/21/18 15:47 10/21/18 15:47 10/21/18 15:47 10/21/18 15:47 10/21/18 15:47 - Medications Medications: Current Medications Acetaminophen (Tylenol 325mg Tab) 650 mg PO Q6 PRN PRN Reason: Fever >100.4 F Last Admin: 10/19/18 13:54 Dose: 650 mg Albuterol/Ipratropium (Duoneb 3 Mg/0.5 Mg (3 Ml) Ud) 3 ml INH RQ6 [facility] Last Admin: 10/21/18 13:27 Dose: 3 ml Amlodipine Besylate (Norvasc) 10 mg PO DAILY [facility] Last Admin: 10/21/18 11:01 Dose: 10 mg Calcium Acetate (Phoslo) 667 mg PO BIDCC [facility] Last Admin: 10/21/18 17:01 Dose: 667 mg Carvedilol (Coreg) 12.5 mg PO Q12 [facility] Last Admin: 10/21/18 10:51 Dose: 12.5 mg Dextrose (Dextrose 50% Inj) 0 ml IV STAT PRN; Protocol PRN Reason: Hypoglycemia Protocol Dextrose (Glutose 15) 0 gm PO ONCE PRN; Protocol PRN Reason: Hypoglycemia Protocol Docusate Sodium (Colace) 100 mg PO TID [facility] Last Admin: 10/21/18 17:01 Dose: 100 mg Epoetin Wild (Procrit) 4,000 unit SC MWF [facility] Last Admin: 10/19/18 11:33 Dose: 4,000 unit Glucagon (Glucagen Diagnostic Kit) 0 mg IM STAT PRN; Protocol PRN Reason: Hypoglycemia Protocol Hydralazine HCl (Apresoline) 25 mg PO Q8 [facility] Last Admin: 10/21/18 13:28 Dose: 25 mg Azithromycin 500 mg/ Sodium (Chloride) 250 mls @ 250 mls/hr IVPB DAILY [facility]; Protocol Last Admin: 10/21/18 10:45 Dose: 250 mls/hr Piperacillin Sod/Tazobactam (Sod 2.25 gm/ Sodium Chloride) 100 mls @ 200 mls/hr IVPB Q8H [facility]; Protocol Last Admin: 10/21/18 17:03 Dose: 200 mls/hr Vancomycin HCl 500 mg/ Sodium (Chloride) 100 mls @ 67 mls/hr IVPB MWF [facility]; Protocol Stop: 10/24/18 09:01 Last Admin: 10/19/18 15:09 Dose: 67 mls/hr Insulin Aspart (Novolog) 0 unit SC [facility]; Protocol Last Admin: 10/21/18 17:01 Dose: 4 units Insulin Glargine (Lantus) 25 unit SC [facility] Last Admin: 10/20/18 21:30 Dose: 25 units Oseltamivir Phosphate (Tamiflu Susp) 30 mg PO BID [facility]; Protocol Stop: 10/23/18 15:40 Last Admin: 10/21/18 17:01 Dose: 30 mg Pantoprazole Sodium (Protonix Ec Tab) 40 mg PO DAILY [facility] Last Admin: 10/21/18 10:50 Dose: 40 mg Paricalcitol (Zemplar) 2 mcg [place] [facility] Last Admin: 10/19/18 10:33 Dose: 2 mcg Promethazine HCl/Dextromethorphan (Phenergan Dm Syrup) 5 ml PO Q6H PRN PRN Reason: Cough Last Admin: 10/21/18 10:59 Dose: 5 ml Rosuvastatin Calcium (Crestor) 5 mg PO [facility] Last Admin: 10/20/18 21:29 Dose: 5 mg Vitamin B Complex/Vit C/Folic Acid (Nephro-Mary) 1 tab PO DAILY [facility] Last Admin: 10/21/18 10:50 Dose: 1 tab - Labs Labs: 10/19/18 17:07 10/19/18 07:39 - Head Exam Head Exam: ATRAUMATIC, NORMAL INSPECTION, NORMOCEPHALIC - Eye Exam Eye Exam: EOMI, Normal appearance, PERRL Pupil Exam: NORMAL ACCOMODATION - ENT Exam ENT Exam: Mucous Membranes Moist - Neck Exam Neck Exam: Full ROM - Respiratory Exam Respiratory Exam: Rhonchi. absent: Prolonged Expiratory Phase, Rales, Wheezes, Respiratory Distress - Cardiovascular Exam Cardiovascular Exam: REGULAR RHYTHM, +S1, +S2. absent: Murmur - GI/Abdominal Exam GI & Abdominal Exam: Soft, Normal Bowel Sounds. absent: Tenderness - Extremities Exam Extremities Exam: Full ROM, Normal Capillary Refill, Normal Inspection. absent: Joint Swelling, Pedal Edema - Back Exam Back Exam: NORMAL INSPECTION Assessment and Plan (1) Acute respiratory distress Status: Acute (2) Multifocal pneumonia Status: Acute (3) ESRD needing dialysis Status: Acute - Assessment and Plan (Free Text) Assessment: Acute respiratory failure from multi lobar pneumonia and acute pulmonary edema/fluid overload acute pulmonary hemorrhage is very unlikely Viral pneumonitis is also a possibility and the patient was started on Tamiflu 30 mg oral twice daily yesterday by ID Continue with broad-spectrum antibiotic coverage with IV vancomycin, Zosyn and azithromycin Out of bed to chair Maintain aspiration precaution Supplemental oxygen to keep oxygen above 94%
[2018-10-21] MEDS: (Lantus) Insulin Glargine, Recombinant SC SCH (21:36)
--- NOTE | 2018-10-21 23:52 | PN ---
DATE: 10/21/2018 INFECTIOUS DISEASE FOLLOWUP SUBJECTIVE: The patient is in isolation as I had put her on Tamiflu. Her story also sounded like post-viral pneumonia as she had no white count. She is feeling a little better now. She is a dialysis patient. PHYSICAL EXAMINATION: VITAL SIGNS: T-max is 99.8, right now is 98.1; pulse 71; blood pressure is 148/62; respirations are 20. GENERAL: She is breathing a lot better, coughing less. Her appetite is coming back. HEENT: Head is atraumatic and normocephalic. Tongue is moist. Lower lip has fever blisters. NECK: Supple. LUNGS: Decreased breath sounds bilaterally, occasional rhonchi. HEART: S1 and S2, regular. ABDOMEN: Soft, nontender. No guarding, no rigidity present. EXTREMITIES: No edema. LABORATORY DATA: There are no new labs. We will repeat labs tomorrow. DIAGNOSTIC DATA: She had a chest CT on 10/19/2018. ASSESSMENT AND PLAN: She is being followed by Dr. Mcclellan also and is slowly getting better. She was afebrile. see what Pulmonary wants to do. She is still with acute respiratory distress, multifocal pneumonia and end-stage renal disease. We will continue present antibiotics and antiviral at this time. I am waiting for the influenza titers that I have asked for. Also, we will repeat the chest x-ray in one to two days. We will follow with the consultants. Karey Ling MD
[2018-10-22] MEDS: Albuterol-Ipratrop 3 mg / 0.5 (3 ml) UD INH SCH (01:24)
[2018-10-22] MEDS: Piperacillin/Tazobact 2.25 GM in Sodium Chloride 100 ML IVPB SCH ×3 (02:00→17:06)
[2018-10-22] MEDS: (Novolog) Insulin Aspart, Recombinant 100 u/ml 10 ml vial SC SCH ×4 (08:02→21:43)
[2018-10-22] MEDS: Multivitamin Vitamin B Complex (Nephro-Vite) Tab PO SCH (09:29)
[2018-10-22] MEDS: Pantoprazole 40 mg EC Tab PO SCH (09:29)
[2018-10-22] MEDS: Oseltamivir 6 MG/ML PO SCH ×2 (09:30→17:07)
[2018-10-22] MEDS: Azithromycin 500 MG in Sodium Chloride 0.9% 250 ML IVPB SCH ×2 (09:30→14:07)
[2018-10-22] MEDS: Paricalcitol 2 mcg/ml Inj IV SCH (10:20)
[2018-10-22 10:21] LABS: BASO # 0.1 K/uL (0.0-0.2); EOS # 0.3 K/uL (0.0-0.7); EOS % 5.8 % (0.0-4.0); HEMOGLOBIN 8.6 g/dL (11.0-16.0); LYMPH # 0.8 K/uL (1.0-4.3); MEAN CELL VOLUME 100.3 fL (81.0-99.0); MEAN CORPUSCULAR HEMOGLOBIN 32.9 pg (27.0-31.0); MEAN CORPUSCULAR HGB CONC 32.8 g/dL (33.0-37.0); MEAN PLATELET VOLUME 9.5 fL (7.2-11.7); MONO # 0.4 K/uL (0.0-0.8); MONO % 7.2 % (0.0-10.0); NEUT # 4.2 K/uL (1.8-7.0); RBC 2.61 Mil/uL (3.80-5.20); RED CELL DISTRIBUTION WIDTH 15.9 % (11.5-14.5); WHITE BLOOD COUNT 5.8 K/uL (4.8-10.8)
[2018-10-22] MEDS ORDERED: EPOETIN ALFA 4,000 UNIT/ML ML Dialysis IV SCH (10:30)
[2018-10-22 10:34] LABS: CALCIUM 8.3 mg/dl (8.6-10.4)
--- NOTE | 2018-10-22 11:04 | NM ---
Date of service: 10/19/2018 COMPARISON: 10/18/2018 TECHNIQUE: 12.2 mCi technetium 99-m Xe-133 Gas. 3.4 mCI technetium 99-m MAA administered intravenously. FINDINGS: VENTILATION COMPONENT: Mildly heterogeneous ventilation. PERFUSION COMPONENT: Heterogeneous distribution of radionuclide. No geographic, segmental, lobar abnormalities apparent on the present examination. IMPRESSION: Low probability ventilation perfusion scan for pulmonary embolism.
--- NOTE | 2018-10-22 12:33 | CP.PCM.PN ---
Subjective - Date & Time of Evaluation Date of Evaluation: 10/22/18 Time of Evaluation: 12:33 - Subjective Subjective: pt is seen and examined, follow up consult is dictated #[id number] s/p hd today, uf 3.4 lit Objective - Vital Signs/Intake and Output Vital Signs (last 24 hours): Temp Pulse Resp BP Pulse Ox 97.7 F 74 18 207/87 H 99 10/22/18 09:40 10/22/18 09:40 10/22/18 09:40 10/22/18 11:14 10/22/18 09:40 - Medications Medications: Current Medications Acetaminophen (Tylenol 325mg Tab) 650 mg PO Q6 PRN PRN Reason: Fever >100.4 F Last Admin: 10/19/18 13:54 Dose: 650 mg Amlodipine Besylate (Norvasc) 10 mg PO DAILY [facility] Last Admin: 10/22/18 11:13 Dose: 10 mg Calcium Acetate (Phoslo) 667 mg PO BIDCC [facility] Last Admin: 10/22/18 08:16 Dose: 667 mg Carvedilol (Coreg) 12.5 mg PO Q12 [facility] Last Admin: 10/22/18 11:14 Dose: 12.5 mg Dextrose (Dextrose 50% Inj) 0 ml IV STAT PRN; Protocol PRN Reason: Hypoglycemia Protocol Dextrose (Glutose 15) 0 gm PO ONCE PRN; Protocol PRN Reason: Hypoglycemia Protocol Docusate Sodium (Colace) 100 mg PO TID [facility] Last Admin: 10/22/18 09:29 Dose: Not Given Epoetin Wild (Procrit) 4,000 unit IV MWF [facility] Last Admin: 10/22/18 10:26 Dose: 4,000 unit Glucagon (Glucagen Diagnostic Kit) 0 mg IM STAT PRN; Protocol PRN Reason: Hypoglycemia Protocol Hydralazine HCl (Apresoline) 25 mg PO Q8 [facility] Last Admin: 10/22/18 06:37 Dose: 25 mg Azithromycin 500 mg/ Sodium (Chloride) 250 mls @ 250 mls/hr IVPB DAILY [facility]; Protocol Last Admin: 10/22/18 09:30 Dose: Not Given Piperacillin Sod/Tazobactam (Sod 2.25 gm/ Sodium Chloride) 100 mls @ 200 mls/hr IVPB Q8H [facility]; Protocol Last Admin: 10/22/18 09:23 Dose: Not Given Vancomycin HCl 500 mg/ Sodium (Chloride) 100 mls @ 67 mls/hr IVPB MWF [facility]; Protocol Stop: 10/24/18 09:01 Last Admin: 10/19/18 15:09 Dose: 67 mls/hr Insulin Aspart (Novolog) [address] [facility]; Protocol Last Admin: 10/22/18 12:14 Dose: Not Given Insulin Glargine (Lantus) 25 unit SC [facility] Last Admin: 10/21/18 21:36 Dose: 25 units Oseltamivir Phosphate (Tamiflu Susp) 30 mg PO BID [facility]; Protocol Stop: 10/23/18 15:40 Last Admin: 10/22/18 09:30 Dose: Not Given Pantoprazole Sodium (Protonix Ec Tab) 40 mg PO DAILY [facility] Last Admin: 10/22/18 09:29 Dose: Not Given Paricalcitol (Zemplar) 2 mcg IV [facility] [place] Last Admin: 10/22/18 10:20 Dose: 2 mcg Promethazine HCl/Dextromethorphan (Phenergan Dm Syrup) 5 ml PO Q6H PRN PRN Reason: Cough Last Admin: 10/21/18 21:36 Dose: 5 ml Rosuvastatin Calcium (Crestor) 5 mg PO [facility] Last Admin: 10/21/18 21:35 Dose: 5 mg Vitamin B Complex/Vit C/Folic Acid (Nephro-Mary) 1 tab PO DAILY [facility] Last Admin: 10/22/18 09:29 Dose: Not Given - Labs Labs: 10/22/18 10:05 10/22/18 10:05
--- NOTE | 2018-10-22 17:42 | CP.PCM.PN ---
Subjective - Date & Time of Evaluation Date of Evaluation: 10/22/18 Time of Evaluation: 19:00 - Subjective Subjective: Pulmonary follow up, The Patient was seen and examined at the bedside, Medical records reviewed, and management issues were discussed and formulated with the house staff. Events reviewed Patient looks much more comfortable today she is alert awake oriented x3 Sitting comfortable in bed having lunch, able to speak full sentences, Afebrile overnight Oxygen saturation improving and her FiO2 requirement is remarkably lower today Objective - Vital Signs/Intake and Output Vital Signs (last 24 hours): Temp Pulse Resp BP Pulse Ox 97.9 F 77 18 156/56 H 98 10/22/18 15:48 10/22/18 15:48 10/22/18 15:48 10/22/18 15:48 10/22/18 15:48 - Medications Medications: Current Medications Acetaminophen (Tylenol 325mg Tab) 650 mg PO Q6 PRN PRN Reason: Fever >100.4 F Last Admin: 10/19/18 13:54 Dose: 650 mg Amlodipine Besylate (Norvasc) 10 mg PO DAILY [facility] Last Admin: 10/22/18 11:13 Dose: 10 mg Calcium Acetate (Phoslo) 667 mg PO BIDCC [facility] Last Admin: 10/22/18 17:07 Dose: 667 mg Carvedilol (Coreg) 12.5 mg PO Q12 [facility] Last Admin: 10/22/18 11:14 Dose: 12.5 mg Dextrose (Dextrose 50% Inj) 0 ml IV STAT PRN; Protocol PRN Reason: Hypoglycemia Protocol Dextrose (Glutose 15) 0 gm PO ONCE PRN; Protocol PRN Reason: Hypoglycemia Protocol Docusate Sodium (Colace) 100 mg PO TID [facility] Last Admin: 10/22/18 17:07 Dose: 100 mg Epoetin Wild (Procrit) 4,000 unit IV MWF [facility] Last Admin: 10/22/18 10:26 Dose: 4,000 unit Glucagon (Glucagen Diagnostic Kit) 0 mg IM STAT PRN; Protocol PRN Reason: Hypoglycemia Protocol Hydralazine HCl (Apresoline) 25 mg PO Q8 [facility] Last Admin: 10/22/18 14:07 Dose: 25 mg Piperacillin Sod/Tazobactam (Sod 2.25 gm/ Sodium Chloride) 100 mls @ 200 mls/hr IVPB Q8H [facility]; Protocol Last Admin: 10/22/18 17:06 Dose: 200 mls/hr Vancomycin HCl 500 mg/ Sodium (Chloride) 100 mls @ 100 mls/hr IVPB [facility] [place]; Protocol Last Admin: 10/22/18 16:00 Dose: 100 mls/hr Insulin Aspart (Novolog) 0 unit SC ACHS [facility]; Protocol Last Admin: 10/22/18 17:07 Dose: 4 units Insulin Glargine (Lantus) 25 unit SC [facility] Last Admin: 10/21/18 21:36 Dose: 25 units Oseltamivir Phosphate (Tamiflu Susp) 30 mg PO BID [facility]; Protocol Stop: 10/23/18 15:40 Last Admin: 10/22/18 17:07 Dose: 30 mg Pantoprazole Sodium (Protonix Ec Tab) 40 mg PO DAILY [facility] Last Admin: 10/22/18 09:29 Dose: Not Given Paricalcitol (Zemplar) 2 mcg IV [facility] [place] Last Admin: 10/22/18 10:20 Dose: 2 mcg Promethazine HCl/Dextromethorphan (Phenergan Dm Syrup) 5 ml PO Q6H PRN PRN Reason: Cough Last Admin: 10/21/18 21:36 Dose: 5 ml Rosuvastatin Calcium (Crestor) 5 mg PO [facility] Last Admin: 10/21/18 21:35 Dose: 5 mg Vitamin B Complex/Vit C/Folic Acid (Nephro-Mary) 1 tab PO DAILY [facility] Last Admin: 10/22/18 09:29 Dose: Not Given - Labs Labs: 10/22/18 10:05 10/22/18 10:05 Assessment and Plan (1) Acute respiratory distress Status: Acute (2) Multifocal pneumonia Status: Acute (3) ESRD needing dialysis Status: Acute
[2018-10-22] MEDS: Promethazine DM 6.25 mg-15 mg/5 ml Syrup PO PRN (17:59)
--- NOTE | 2018-10-22 18:41 | RAD ---
Date of service: 10/22/2018 PROCEDURE: CHEST RADIOGRAPH, 1 VIEW HISTORY: follow up COMPARISON: 10/18/2018. single-view chest 10/19/2018 CT thorax FINDINGS: LUNGS: Marked improvement multifocal infiltrates/pulmonary edema identified on prior chest radiograph. PLEURA: No pneumothorax or pleural fluid seen. CARDIOVASCULAR: No aortic atherosclerotic calcification present. Normal. OSSEOUS STRUCTURES: No significant abnormalities. VISUALIZED UPPER ABDOMEN: Normal. OTHER FINDINGS: None. IMPRESSION: Substantial improvement without complete resolution of multifocal infiltrates/pulmonary edema seen previously.
--- NOTE | 2018-10-22 20:21 | CP.PCM.PN ---
Subjective - Date & Time of Evaluation Date of Evaluation: 10/22/18 Time of Evaluation: 10:00 - Subjective Subjective: clinically same Objective - Vital Signs/Intake and Output Vital Signs (last 24 hours): Temp Pulse Resp BP Pulse Ox 97.9 F 77 18 156/56 H 98 10/22/18 15:48 10/22/18 15:48 10/22/18 15:48 10/22/18 15:48 10/22/18 15:48 - Medications Medications: Current Medications Acetaminophen (Tylenol 325mg Tab) 650 mg PO Q6 PRN PRN Reason: Fever >100.4 F Last Admin: 10/19/18 13:54 Dose: 650 mg Amlodipine Besylate (Norvasc) 10 mg PO DAILY [facility] Last Admin: 10/22/18 11:13 Dose: 10 mg Calcium Acetate (Phoslo) 667 mg PO BIDCC [facility] Last Admin: 10/22/18 17:07 Dose: 667 mg Carvedilol (Coreg) 12.5 mg PO Q12 [facility] Last Admin: 10/22/18 11:14 Dose: 12.5 mg Dextrose (Dextrose 50% Inj) 0 ml IV STAT PRN; Protocol PRN Reason: Hypoglycemia Protocol Dextrose (Glutose 15) 0 gm PO ONCE PRN; Protocol PRN Reason: Hypoglycemia Protocol Docusate Sodium (Colace) 100 mg PO TID [facility] Last Admin: 10/22/18 17:07 Dose: 100 mg Epoetin Wild (Procrit) 4,000 unit IV MWF [facility] Last Admin: 10/22/18 10:26 Dose: 4,000 unit Glucagon (Glucagen Diagnostic Kit) 0 mg IM STAT PRN; Protocol PRN Reason: Hypoglycemia Protocol Hydralazine HCl (Apresoline) 25 mg PO Q8 [facility] Last Admin: 10/22/18 14:07 Dose: 25 mg Piperacillin Sod/Tazobactam (Sod 2.25 gm/ Sodium Chloride) 100 mls @ 200 mls/hr IVPB Q8H [facility]; Protocol Last Admin: 10/22/18 17:06 Dose: 200 mls/hr Vancomycin HCl 500 mg/ Sodium (Chloride) 100 mls @ 100 mls/hr IVPB MWF [facility]; Protocol Last Admin: 10/22/18 16:00 Dose: 100 mls/hr Insulin Aspart (Novolog) 0 unit SC [facility]; Protocol Last Admin: 10/22/18 17:07 Dose: 4 units Insulin Glargine (Lantus) 25 unit SC HS [facility] Last Admin: 10/21/18 21:36 Dose: 25 units Oseltamivir Phosphate (Tamiflu Susp) 30 mg PO BID [facility]; Protocol Stop: 10/23/18 15:40 Last Admin: 10/22/18 17:07 Dose: 30 mg Pantoprazole Sodium (Protonix Ec Tab) 40 mg PO DAILY [facility] Last Admin: 10/22/18 09:29 Dose: Not Given Paricalcitol (Zemplar) 2 mcg IV MWF [facility] Last Admin: 10/22/18 10:20 Dose: 2 mcg Promethazine HCl/Dextromethorphan (Phenergan Dm Syrup) 5 ml PO Q6H PRN PRN Reason: Cough Last Admin: 10/22/18 17:59 Dose: 5 ml Rosuvastatin Calcium (Crestor) 5 mg PO [facility] Last Admin: 10/21/18 21:35 Dose: 5 mg Vitamin B Complex/Vit C/Folic Acid (Nephro-Mary) 1 tab PO DAILY [facility] Last Admin: 10/22/18 09:29 Dose: Not Given - Labs Labs: 10/22/18 10:05 10/22/18 10:05 - Constitutional Appears: Well - Head Exam Head Exam: ATRAUMATIC, NORMAL INSPECTION, NORMOCEPHALIC - Eye Exam Eye Exam: EOMI, Normal appearance, PERRL Pupil Exam: NORMAL ACCOMODATION, PERRL - ENT Exam ENT Exam: Mucous Membranes Moist, Normal Exam - Neck Exam Neck Exam: Full ROM, Normal Inspection. absent: Lymphadenopathy - Respiratory Exam Respiratory Exam: Decreased Breath Sounds - Cardiovascular Exam Cardiovascular Exam: REGULAR RHYTHM, +S1, +S2 - GI/Abdominal Exam GI & Abdominal Exam: Soft, Diminished Bowel Sounds - Rectal Exam Rectal Exam: Deferred
--- NOTE | 2018-10-22 20:29 | CP.PCM.PN ---
Subjective - Date & Time of Evaluation Date of Evaluation: 10/22/18 Time of Evaluation: 15:00 - Subjective Subjective: dictated Objective - Vital Signs/Intake and Output Vital Signs (last 24 hours): Temp Pulse Resp BP Pulse Ox 97.9 F 77 18 156/56 H 98 10/22/18 15:48 10/22/18 15:48 10/22/18 15:48 10/22/18 15:48 10/22/18 15:48 - Medications Medications: Current Medications Acetaminophen (Tylenol 325mg Tab) 650 mg PO Q6 PRN PRN Reason: Fever >100.4 F Last Admin: 10/19/18 13:54 Dose: 650 mg Amlodipine Besylate (Norvasc) 10 mg PO DAILY [facility] Last Admin: 10/22/18 11:13 Dose: 10 mg Calcium Acetate (Phoslo) 667 mg PO BIDCC [facility] Last Admin: 10/22/18 17:07 Dose: 667 mg Carvedilol (Coreg) 12.5 mg PO Q12 [facility] Last Admin: 10/22/18 11:14 Dose: 12.5 mg Dextrose (Dextrose 50% Inj) 0 ml IV STAT PRN; Protocol PRN Reason: Hypoglycemia Protocol Dextrose (Glutose 15) 0 gm PO ONCE PRN; Protocol PRN Reason: Hypoglycemia Protocol Docusate Sodium (Colace) 100 mg PO TID [facility] Last Admin: 10/22/18 17:07 Dose: 100 mg Epoetin Wild (Procrit) 4,000 unit IV F [facility] Last Admin: 10/22/18 10:26 Dose: 4,000 unit Glucagon (Glucagen Diagnostic Kit) 0 mg IM STAT PRN; Protocol PRN Reason: Hypoglycemia Protocol Hydralazine HCl (Apresoline) 25 mg PO Q8 [facility] Last Admin: 10/22/18 14:07 Dose: 25 mg Piperacillin Sod/Tazobactam (Sod 2.25 gm/ Sodium Chloride) 100 mls @ 200 mls/hr IVPB Q8H [facility]; Protocol Last Admin: 10/22/18 17:06 Dose: 200 mls/hr Vancomycin HCl 500 mg/ Sodium (Chloride) 100 mls @ 100 mls/hr IVPB MWF [facility]; Protocol Last Admin: 10/22/18 16:00 Dose: 100 mls/hr Insulin Aspart (Novolog) 0 unit SC [facility]; Protocol Last Admin: 10/22/18 17:07 Dose: 4 units Insulin Glargine (Lantus) 25 unit SC [facility] Last Admin: 10/21/18 21:36 Dose: 25 units Oseltamivir Phosphate (Tamiflu Susp) 30 mg PO BID [facility]; Protocol Stop: 10/23/18 15:40 Last Admin: 10/22/18 17:07 Dose: 30 mg Pantoprazole Sodium (Protonix Ec Tab) 40 mg PO DAILY [facility] Last Admin: 10/22/18 09:29 Dose: Not Given Paricalcitol (Zemplar) 2 mcg IV [facility] Last Admin: 10/22/18 10:20 Dose: 2 mcg Promethazine HCl/Dextromethorphan (Phenergan Dm Syrup) 5 ml PO Q6H PRN PRN Reason: Cough Last Admin: 10/22/18 17:59 Dose: 5 ml Rosuvastatin Calcium (Crestor) 5 mg PO [facility] Last Admin: 10/21/18 21:35 Dose: 5 mg Vitamin B Complex/Vit C/Folic Acid (Nephro-Mary) 1 tab PO DAILY [facility] Last Admin: 10/22/18 09:29 Dose: Not Given - Labs Labs: 10/22/18 10:05 10/22/18 10:05
[2018-10-22] MEDS: (Lantus) Insulin Glargine, Recombinant SC SCH (21:44)
[2018-10-23] MEDS: Piperacillin/Tazobact 2.25 GM in Sodium Chloride 100 ML IVPB SCH ×2 (00:48→08:38)
[2018-10-23] MEDS: Promethazine DM 6.25 mg-15 mg/5 ml Syrup PO PRN (01:29)
--- NOTE | 2018-10-23 01:58 | PN ---
DATE: 10/22/2018 SUBJECTIVE: The patient was feeling better. She wants to go home. She says the cough is decreasing. She is breathing easier and she did have dialysis today. She wanted to go home today and she did have an x-ray done right at the time when I was visiting her, and so we will discontinue the x-ray for tomorrow if she had it today. PHYSICAL EXAMINATION: GENERAL: She is alert, oriented x3. VITAL SIGNS: T-max is 97.9, pulse 77, blood pressure 156/56, respirations are 18. Saturation 98% on room air. HEAD: Atraumatic and normocephalic. LUNGS: Clear. Decreased breath sounds bilaterally. HEART: S1, S2. Regular. ABDOMEN: Soft, nontender. No guarding, no rigidity present. EXTREMITIES: Have no edema. LABORATORY DATA: Labs show white count is 5.8, hemoglobin 8.6, hematocrit 26.2, platelet count is 229, and BUN is 27, creatinine 7 and she is a dialysis patient. Her micro labs, blood, urine were negative. She never gave a sputum sample and her chest x-ray which was done today shows substantial improvement without complete resolution of multifocal infiltrates, pulmonary edema seen previously substantial improvement without complete resolution. MEDICATIONS: So, at this time, her medications she is getting, is on Tylenol, amlodipine, calcium, Coreg, Colace, glucagon is on hold, hydralazine, insulin, Tamiflu which was done today and she is off pantoprazole and she is on Zosyn and vancomycin and she was getting Zithromax until today. ASSESSMENT AND PLAN: So, at this time, we will see what plan Dr. Mcclellan has for her and if she improves further, maybe we will get her home on Vantin for 7-10 days and to follow up the chest x-ray. We will discuss the plan with the Pulmonary tomorrow. We will follow and the patient is looking better, came in with multifocal pneumonia, possibility of congestive heart failure with pneumonia, starting with flu-like symptoms and she has end-stage renal disease. Karey Ling MD
--- NOTE | 2018-10-23 02:34 | PN ---
DATE: 10/22/2018 FOLLOWUP RENAL CONSULTATION LOCATION: The patient is located in room 654. REQUESTED BY: Rakan Wells MD REASON FOR FOLLOWUP: End-stage renal disease, continuation of hemodialysis. HISTORY OF PRESENT ILLNESS: Mrs. Wells is a 58-year-old middle-aged female with a history of hypertension, diabetes, diabetic retinopathy, CHF, end-stage renal disease, on hemodialysis, three times a week, Monday, Monday, and Monday who was admitted with a fever, cough, shortness of breath post dialysis on last week, Monday. The patient was found to have multilobar pneumonia on IV antibiotics and also on Tamiflu. The patient is feeling much better. No chest pain, no palpitation. No fever. No cough. No abdominal pain. No nausea, vomiting, diarrhea. The patient underwent hemodialysis today. PHYSICAL EXAMINATION: VITAL SIGNS: This morning as follows: Blood pressure 187/77, pulse 60, respirations about 16, temperature 98, saturation 96%. GENERAL: Mrs. Wells is a 58-year-old middle-aged female, moderately built, moderately nourished, not in acute distress. HEENT: Pupils normal and reactive to light and accommodation. Conjunctivae pink. Sclerae anicteric. Tongue is moist. Trachea is midline. LUNGS: Symmetric on both sides. Bilateral breath sounds present. Occasional right basal crackles present. CARDIOVASCULAR SYSTEM: Riner at the fifth intercostal space, midclavicular line. S1, S2 audible. No murmur or gallop. ABDOMEN: Normal in appearance, soft, tympanitic. No guarding. No rigidity. No hepatosplenomegaly. CENTRAL NERVOUS SYSTEM: Patient is alert, awake, oriented x3. Nonfocal neuro examination. Cranial nerves II through XII grossly intact. Sensory and motor system is within normal limits. EXTREMITIES: No cyanosis, no clubbing, no edema. CURRENT MEDICATIONS: Include as follows: Hydralazine, Colace, Coreg, Crestor, Lantus, Nephro-Mary, amlodipine, Phenergan DM syrup, calcium acetate, Procrit, Protonix, Tamiflu, and also vancomycin, and Zemplar. CURRENT LABORATORY DATA: Include as follows: As of 10/22/2018, WBC 5.8, hemoglobin 8.6, hematocrit is 26.2, platelets 229. Sodium 135, potassium 3.9, chloride 101, CO2 of 23, BUN 27, creatinine 7, glucose 146, calcium 8.3. Chest x-ray as of 10/22/2018, impression, substantial improvement without complete resolution of multifocal infiltrates and pulmonary edema seen previously. IMPRESSION: In summary, Mrs. Wells is a 58-year-old elderly female with a history of hypertension, diabetes, diabetic retinopathy, end-stage renal disease who was admitted with fever, cough, shortness of breath, and found to have a multifocal pneumonia and started on multiple antibiotics with improving symptoms. 1. End-stage renal disease. Continue hemodialysis three times a week Monday, Monday, Monday. The patient underwent hemodialysis this morning, had ultrafiltration about 3.4 liters. 2. Hypertension. Blood pressure is still running high. Continue hydralazine and continue Coreg. Continue Norvasc. Advise advised low-sodium diet and restrict fluids. 2. Anemia secondary to renal failure and pneumonia, continue Procrit during hemodialysis. Continue Nephro-Mary. Continue PhosLo. 3. Diabetes. Continue Lantus. Continue to monitor Accu-Cheks. The patient is stable from the renal standpoint. Thank you for allowing me to participate in your patient's care. Awaiting for ID clearance prior to discharge Chrissie Moore MD
[2018-10-23] MEDS: (Novolog) Insulin Aspart, Recombinant 100 u/ml 10 ml vial SC SCH ×2 (08:38→11:54)
[2018-10-23] MEDS: Multivitamin Vitamin B Complex (Nephro-Vite) Tab PO SCH (10:37)
[2018-10-23] MEDS: Pantoprazole 40 mg EC Tab PO SCH (10:37)
[2018-10-23] MEDS: Oseltamivir 6 MG/ML PO SCH (10:38)
--- NOTE | 2018-10-23 15:06 | CP.PCM.PN ---
Subjective - Date & Time of Evaluation Date of Evaluation: 10/23/18 Time of Evaluation: 10:15 - Subjective Subjective: clinically same Objective - Vital Signs/Intake and Output Vital Signs (last 24 hours): Temp Pulse Resp BP Pulse Ox 98.0 F 64 20 184/85 H 94 L 10/23/18 07:00 10/23/18 10:40 10/23/18 07:00 10/23/18 10:40 10/23/18 07:00 Intake and Output: 10/23/18 10/23/18 06:59 18:59 Intake Total 220 Balance 220 - Medications Medications: Current Medications Acetaminophen (Tylenol 325mg Tab) 650 mg PO Q6 PRN PRN Reason: Fever >100.4 F Last Admin: 10/19/18 13:54 Dose: 650 mg Amlodipine Besylate (Norvasc) 10 mg PO DAILY [facility] Last Admin: 10/23/18 10:37 Dose: 10 mg Calcium Acetate (Phoslo) 667 mg PO BIDCC [facility] Last Admin: 10/23/18 08:37 Dose: 667 mg Carvedilol (Coreg) 12.5 mg PO Q12 [facility] Last Admin: 10/23/18 10:37 Dose: 12.5 mg Dextrose (Dextrose 50% Inj) 0 ml IV STAT PRN; Protocol PRN Reason: Hypoglycemia Protocol Dextrose (Glutose 15) 0 gm PO ONCE PRN; Protocol PRN Reason: Hypoglycemia Protocol Docusate Sodium (Colace) 100 mg PO TID [facility] Last Admin: 10/23/18 14:10 Dose: 100 mg Epoetin Wild (Procrit) [facility] Last Admin: 10/22/18 10:26 Dose: 4,000 unit Glucagon (Glucagen Diagnostic Kit) 0 mg IM STAT PRN; Protocol PRN Reason: Hypoglycemia Protocol Hydralazine HCl (Apresoline) 25 mg PO Q8 [facility] Last Admin: 10/23/18 14:10 Dose: 25 mg Piperacillin Sod/Tazobactam (Sod 2.25 gm/ Sodium Chloride) 100 mls @ 200 mls/hr IVPB Q8H [facility]; Protocol Last Admin: 10/23/18 08:38 Dose: 200 mls/hr Vancomycin HCl 500 mg/ Sodium (Chloride) 100 mls @ 100 mls/hr IVPB MWF [facility]; Protocol Last Admin: 10/22/18 16:00 Dose: 100 mls/hr Insulin Aspart (Novolog) 0 unit SC ACHS [facility]; Protocol Last Admin: 10/23/18 11:54 Dose: 2 units Insulin Glargine (Lantus) 25 unit SC [facility] Last Admin: 10/22/18 21:44 Dose: 25 units Oseltamivir Phosphate (Tamiflu Susp) 30 mg PO BID [facility]; Protocol Stop: 10/23/18 15:40 Last Admin: 10/23/18 10:38 Dose: 30 mg Pantoprazole Sodium (Protonix Ec Tab) 40 mg PO DAILY [facility] Last Admin: 10/23/18 10:37 Dose: 40 mg Paricalcitol (Zemplar) 2 mcg IV MWF [facility] Last Admin: 10/22/18 10:20 Dose: 2 mcg Promethazine HCl/Dextromethorphan (Phenergan Dm Syrup) 5 ml PO Q6H PRN PRN Reason: Cough Last Admin: 10/23/18 01:29 Dose: 5 ml Rosuvastatin Calcium (Crestor) 5 mg PO [facility] Last Admin: 10/22/18 21:42 Dose: 5 mg Vitamin B Complex/Vit C/Folic Acid (Nephro-Mary) 1 tab PO DAILY [facility] Last Admin: 10/23/18 10:37 Dose: 1 tab - Labs Labs: 10/22/18 10:05 10/22/18 10:05
--- NOTE | 2018-10-23 15:12 | CP.PCM.PN ---
Subjective - Date & Time of Evaluation Date of Evaluation: 10/23/18 Time of Evaluation: 15:00 - Subjective Subjective: dictated Objective - Vital Signs/Intake and Output Vital Signs (last 24 hours): Temp Pulse Resp BP Pulse Ox 98.0 F 64 20 184/85 H 94 L 10/23/18 07:00 10/23/18 10:40 10/23/18 07:00 10/23/18 10:40 10/23/18 07:00 Intake and Output: 10/23/18 10/23/18 06:59 18:59 Intake Total 220 Balance 220 - Medications Medications: Current Medications Acetaminophen (Tylenol 325mg Tab) 650 mg PO Q6 PRN PRN Reason: Fever >100.4 F Last Admin: 10/19/18 13:54 Dose: 650 mg Amlodipine Besylate (Norvasc) 10 mg PO DAILY [facility] Last Admin: 10/23/18 10:37 Dose: 10 mg Calcium Acetate (Phoslo) 667 mg PO BIDCC [facility] Last Admin: 10/23/18 08:37 Dose: 667 mg Carvedilol (Coreg) 12.5 mg PO Q12 [facility] Last Admin: 10/23/18 10:37 Dose: 12.5 mg Dextrose (Dextrose 50% Inj) 0 ml IV STAT PRN; Protocol PRN Reason: Hypoglycemia Protocol Dextrose (Glutose 15) 0 gm PO ONCE PRN; Protocol PRN Reason: Hypoglycemia Protocol Docusate Sodium (Colace) 100 mg PO TID [facility] Last Admin: 10/23/18 14:10 Dose: 100 mg Epoetin Wild (Procrit) 4,000 unit IV [facility] Last Admin: 10/22/18 10:26 Dose: 4,000 unit Glucagon (Glucagen Diagnostic Kit) 0 mg IM STAT PRN; Protocol PRN Reason: Hypoglycemia Protocol Hydralazine HCl (Apresoline) 25 mg PO Q8 [facility] Last Admin: 10/23/18 14:10 Dose: 25 mg Piperacillin Sod/Tazobactam (Sod 2.25 gm/ Sodium Chloride) 100 mls @ 200 mls/hr IVPB Q8H [facility]; Protocol Last Admin: 10/23/18 08:38 Dose: 200 mls/hr Vancomycin HCl 500 mg/ Sodium (Chloride) 100 mls @ 100 mls/hr IVPB MWF [facility]; Protocol Last Admin: 10/22/18 16:00 Dose: 100 mls/hr Insulin Aspart (Novolog) 0 unit SC ACHS [facility]; Protocol Last Admin: 10/23/18 11:54 Dose: 2 units Insulin Glargine (Lantus) 25 unit SC [facility] Last Admin: 10/22/18 21:44 Dose: 25 units Oseltamivir Phosphate (Tamiflu Susp) 30 mg PO BID [facility]; Protocol Stop: 10/23/18 15:40 Last Admin: 10/23/18 10:38 Dose: 30 mg Pantoprazole Sodium (Protonix Ec Tab) 40 mg PO DAILY [facility] Last Admin: 10/23/18 10:37 Dose: 40 mg Paricalcitol (Zemplar) 2 mcg IV MWF [facility] Last Admin: 10/22/18 10:20 Dose: 2 mcg Promethazine HCl/Dextromethorphan (Phenergan Dm Syrup) 5 ml PO Q6H PRN PRN Reason: Cough Last Admin: 10/23/18 01:29 Dose: 5 ml Rosuvastatin Calcium (Crestor) 5 mg PO [facility] Last Admin: 10/22/18 21:42 Dose: 5 mg Vitamin B Complex/Vit C/Folic Acid (Nephro-Mary) 1 tab PO DAILY [facility] Last Admin: 10/23/18 10:37 Dose: 1 tab - Labs Labs: 10/22/18 10:05 10/22/18 10:05
[2018-10-23] MEDS ORDERED: Cefpodoxime (Vantin) 100 mg Tab PO SCH (15:30)
[2018-10-23 15:53] VITALS: BP 174/67
[2018-10-23 15:54] VITALS: PULSE 63; RESP 18; TEMP 97.8; O2SAT 97
--- NOTE | 2018-10-23 16:50 | CP.PCM.PN ---
Subjective - Date & Time of Evaluation Date of Evaluation: 10/23/18 Time of Evaluation: 15:00 - Subjective Subjective: Pulmonary follow up, Covering Dr Clayton The Patient was seen and examined at the bedside, Medical records reviewed, and management issues were discussed and formulated with the house staff. Events reviewed Objective - Vital Signs/Intake and Output Vital Signs (last 24 hours): Temp Pulse Resp BP Pulse Ox 97.8 F 63 18 174/67 H 97 10/23/18 15:52 10/23/18 15:52 10/23/18 15:52 10/23/18 15:52 10/23/18 15:52 Intake and Output: 10/23/18 10/23/18 06:59 18:59 Intake Total 220 Balance 220 - Labs Labs: 10/22/18 10:05 10/22/18 10:05 Assessment and Plan (1) Acute respiratory distress Status: Acute (2) Multifocal pneumonia Status: Acute (3) ESRD needing dialysis Status: Acute
--- NOTE | 2018-10-23 17:24 | PN ---
DATE: 10/23/2018 SUBJECTIVE: The patient says she is feeling better. Denies any cough. No urinary symptoms. No chest pain. No diarrhea. She wants to go home. T-max is 98. X-ray from yesterday was substantially improved, but still needs followup. OBJECTIVE: VITAL SIGNS: Pulse is 64, blood pressure remains high at 184/85, respirations are 20, and saturation was 94% on room air. HEENT: Head is atraumatic, normocephalic. NECK: Supple. LUNGS: Mostly clear. No wheezing, no rhonchi and no rales heard. HEART: S1 and S2 is regular. ABDOMEN: Soft and nontender. No guarding and no rigidity present. EXTREMITIES: Have no edema. LABORATORY DATA: Labs are noted. Labs show white count is 5.8, hemoglobin 8.6, hematocrit is 26.2, and platelet count is 229. BUN is 27, creatinine is 7 and as she is a dialysis patient at this time to continue Vantin 100 mg p.o. b.i.d. for next 7 days and the patient will be going on that and to follow up with Dr. Belinda Wells and to get a chest x-ray done when done with the antibiotics. IMPRESSION: She had pneumonia, she had chronic obstructive pulmonary disease exacerbation with congestive heart failure and end-stage renal disease, and has clinically improved. Karey Ling MD
--- NOTE | 2018-10-23 18:26 | CP.PCM.PN ---
Objective - Vital Signs/Intake and Output Vital Signs (last 24 hours): Temp Pulse Resp BP Pulse Ox 97.8 F 63 18 174/67 H 97 10/23/18 15:52 10/23/18 15:52 10/23/18 15:52 10/23/18 15:52 10/23/18 15:52 Intake and Output: 10/23/18 10/23/18 06:59 18:59 Intake Total 220 Balance 220 - Labs Labs: 10/22/18 10:05 10/22/18 10:05 Assessment and Plan - Assessment and Plan (Free Text) Assessment: Patient seen and examined. Alert and orientedx3, no sob or chest pains. Discussed with DR Ling and DR Belinda Wells, plan to discharge home on po vantin for 7 days. Advised to continue with hemodialysis on MWF. Advised to follow up in the office in 1 week.
[2018-10-24 21:22] LABS: INFLUENZA TYPE A AB 1:32 titer (<1:8); INFLUENZA TYPE B AB <1:8 titer (<1:8)
== END 2018-10-23 16:10 | disposition home or self-care (01) | DRG 193 ==
LOC: C.ER 19:52 → C.9E 22:13 → C.6T 23:32
PROVIDERS: ADMIT Internal Medicine Nephrology; ATTEND Internal Medicine Nephrology
PROC: 5A1D70Z Performance of Urinary Filtration, Intermittent, Less than 6 Hours Per Day (ICD-10-PCS; principal; 2018-10-17)
PROC: 5A1D70Z Performance of Urinary Filtration, Intermittent, Less than 6 Hours Per Day (ICD-10-PCS; 2018-10-19)
PROC: 5A1D70Z Performance of Urinary Filtration, Intermittent, Less than 6 Hours Per Day (ICD-10-PCS; 2018-10-22)
DX: J18.1 Lobar pneumonia, unspecified organism (principal); J96.01 Acute respiratory failure with hypoxia; A41.9 Sepsis, unspecified organism; N18.6 End stage renal disease; J44.0 Chronic obstructive pulmonary disease with (acute) lower respiratory infection; I13.2 Hypertensive heart and chronic kidney disease with heart failure and with stage 5 chronic kidney disease, or end stage renal disease; J44.1 Chronic obstructive pulmonary disease with (acute) exacerbation; I50.9 Heart failure, unspecified; E78.5 Hyperlipidemia, unspecified; E10.69 Type 1 diabetes mellitus with other specified complication; E10.319 Type 1 diabetes mellitus with unspecified diabetic retinopathy without macular edema; D63.1 Anemia in chronic kidney disease; E10.22 Type 1 diabetes mellitus with diabetic chronic kidney disease; E78.00 Pure hypercholesterolemia, unspecified; Z79.4 Long term (current) use of insulin; Z99.2 Dependence on renal dialysis; Z87.442 Personal history of urinary calculi; Z98.51 Tubal ligation status